=== PATIENT | female | born 1970 | race Caucasian/White ===

== ENCOUNTER 2017-12-13 09:25 | Emergency (ER) | payer MEDICARE ==
[2017-12-13 09:37] VITALS: RESP 18
--- NOTE | 2017-12-13 10:08 | XR ---
EXAMINATION TYPE: XR lumbar spine 2 or 3V DATE OF EXAM: 12/13/2017 CLINICAL HISTORY: Back pain. History of lumbar fusion. TECHNIQUE: Frontal and lateral images of the lumbar spine are obtained. COMPARISON: None FINDINGS: There is straightening of the usual lumbar lordosis, unchanged from 2015. Surgical fusion o f the L3-L4 vertebral bodies is redemonstrated. No new malalignment or vertebral body height loss. Th ere are 5 lumbar type vertebral bodies identified. The oblique images appear within normal limits. T he overlying soft tissue appears unremarkable. IMPRESSION: No acute fracture or malalignment is seen in the lumbar spine. Postsurgical changes and straightening of usual lumbar lordosis unchanged from 2015.
[2017-12-13] MEDS ORDERED: KETOROLAC 60 MG/2 ML VIAL IM STA (10:15)
[2017-12-13] MEDS ORDERED: ORPHENADRINE 30 MG/ML 2 ML VIAL IM STA (10:15)
--- NOTE | 2017-12-13 10:18 | ED ---
General Adult HPI - General Chief complaint: Back Pain/Injury Stated complaint: back pain Time Seen by Provider: 12/13/17 09:45 Source: patient, RN notes reviewed Mode of arrival: ambulatory Limitations: no limitations - History of Present Illness Initial comments: Patient is a 47-year-old female significant past medical history for chronic back pain, presented to the emergency room today with chief complaint of increased pain to the lower back radiating down both right and left legs. Patient does admit that she feels it could undergo approximately the knees bilaterally. Patient denies any bowel or bladder incontinence retention. Patient states that she's been helping her daughter cleaning her house. She admits that a few days ago she was lifting and twisted and felt a little pain in her lower back. She states was able to continue to work. Patient does admit that she did a similar movement beginning yesterday. She states she was again able to work today but is been having increased pain starting last night and into this morning. Patient states she is not on any pain medication. She states she smokes marijuana for the pain. Patient denies any other complaints. Patient denies any recent fever, chills, shortness of breath, chest pain, abdominal pain, nausea or vomiting, dysuria or hematuria, constipation or diarrhea, headaches or visual changes, or any other complaints. - Related Data Home Medications Medication Instructions Recorded Confirmed RX: Tiotropium 18 Mcg/Puff 1 puff INHALATION RT-DAILY 04/23/14 12/13/17 [Spiriva] Albuterol Nebulized [Ventolin 2.5 mg INHALATION Q6H PRN 12/13/17 12/13/17 Nebulized] Cetirizine HCl [Zyrtec] 10 mg PO DAILY 12/13/17 12/13/17 Ergocalciferol [Vitamin D2] 50,000 unit PO MO 12/13/17 12/13/17 Fluticasone/Salmeterol [Advair 1 inhalation PO RT-BID 12/13/17 12/13/17 500-50 Diskus] Gabapentin [Neurontin] 300 mg PO TID 12/13/17 12/13/17 Levothyroxine Sodium [Synthroid] 75 mcg PO DAILY 12/13/17 12/13/17 Multivitamins, Thera [Multivitamin 1 tab PO DAILY 12/13/17 12/13/17 (formulary)] [place]-3 Fatty Acids/Fish Oil [Fish 2 cap PO BID 12/13/17 12/13/17 Oil 1,000 mg Softgel] RX: Aspirin 81 mg PO DAILY 12/13/17 12/13/17 RX: Biotin 5 mg PO DAILY 12/13/17 12/13/17 RX: Pantoprazole Sodium 40 mg PO DAILY 12/13/17 12/13/17 RX: Vitamin E 100 unit PO DAILY 12/13/17 12/13/17 RX: traZODone HCL 150 mg PO HS 12/13/17 12/13/17 Venlafaxine HCl [Effexor] 75 mg PO BID 12/13/17 12/13/17 Previous Rx's Medication Instructions Recorded Cyclobenzaprine [Flexeril] 10 mg PO TID #20 tab 12/13/17 Allergies Allergy/AdvReac Type Severity Reaction Status Date / Time adhesive Allergy Unknown Verified 12/13/17 10:35 Corticosteroids Allergy Unknown Verified 12/13/17 10:35 (Glucocorticoids) fluoxetine HCl [From Prozac] Allergy Unknown Verified 12/13/17 10:35 latex Allergy Rash/Hives Verified 12/13/17 10:35 olanzapine [From Zyprexa] Allergy Unknown Verified 12/13/17 10:35 prednisone Allergy Unknown Verified 12/13/17 10:35 venom-honey bee Allergy Anaphylaxis Verified 12/13/17 10:35 [bee venom (honey bee)] Review of Systems ROS Statement: Those systems with pertinent positive or pertinent negative responses have been documented in the HPI. ROS Other: All systems not noted in ROS Statement are negative. Past Medical History Past Medical History: COPD, GERD/Reflux, Seizure Disorder, Thyroid Disorder Additional Past Medical History / Comment(s): Chronic back pain, lung nodule followed by Dr. MICHELLE Gilliam, brain lesions being worked up for possible MS, chronic constipation, hypothyroidism in the past and off medications History of Any Multi-Drug Resistant Organisms: MRSA Date of last positivie culture/infection: 2011 MDRO Source:: urine Past Surgical History: Back Surgery, Section, Hysterectomy, Orthopedic Surgery, Tubal Ligation Additional Past Surgical History / Comment(s): knee, wrist, sarcodisis, vitamin d deficiency neck surg Past Psychological History: Anxiety Smoking Status: Current every day smoker Past Alcohol Use History: None Reported, Rare Past Drug Use History: Marijuana - Past Family History Father Family Medical History: No Reported History Additional Family Medical History / Comment(s): Patient states her father in his 20s as he was murdered. Mother Additional Family Medical History / Comment(s): Mother is alive at age 63 and suffers from Alzheimer's dementia and other "multiple problems." Sister(s) Additional Family Medical History / Comment(s): Patient had 2 sisters. One sister shot and killed herself. Patient has 3 brothers with no major medical problems. General Exam - General Exam Comments Initial Comments: General: The patient is awake and alert, in no distress, and does not appear acutely ill. Eye: Pupils are equal, round and reactive to light, extra-ocular movements are intact. No nystagmus. There is normal conjunctiva bilaterally. No signs of icterus. Ears, nose, mouth and throat: There are moist mucous membranes and no oral lesions. Neck: The neck is supple, there is no tenderness or JVD. Cardiovascular: There is a regular rate and rhythm. No murmur, rub or gallop is appreciated. Respiratory: Lungs are clear to auscultation, respirations are non-labored, breath sounds are equal. No wheezes, stridor, rales, or rhonchi. Gastrointestinal: Soft, non-distended, non-tender abdomen without masses or organomegaly noted. There is no rebound or guarding present. No CVA tenderness. Musculoskeletal: Normal ROM. Tender to palpation lower lumbar. No step-off or deformity. Strength 5/5. Sensation intact. Pulses equal bilaterally 2+. Neurological: A&O x 3. CN II-XII intact, There are no obvious motor or sensory deficits. Coordination appears grossly intact. Speech is normal. Skin: Skin is warm and dry and no rashes or lesions are noted. Psychiatric: Cooperative, appropriate mood & affect, normal judgment. : [employer] Reyes present for exam. Normal rectal tone. Limitations: no limitations Course Vital Signs 12/13/17 09:33 Temperature 97.4 F L Pulse Rate 100 Respiratory 18 Rate Blood Pressure 106/68 O2 Sat by Pulse 99 Oximetry Medical Decision Making - Medical Decision Making X-rays reviewed and show no acute abnormality. Results were discussed with the patient. Patient requesting pain medication was given Toradol and Norflex begin with. She states no relief. She is actively moving around the room was up walking. Patient does have a normal rectal tone. Patient is advised follow- up the family doctor over the next 2 days for further evaluation and need for MRI was discussed. Patient will be discharged home. Given a shot of morphine prior to discharge. advised continued anti-inflammatories. Disposition Clinical Impression: Acute exacerbation of chronic low back pain Disposition: HOME SELF-CARE Condition: Good Instructions: Acute Low Back Pain (ED) Additional Instructions: Please use medication as discussed. Please follow-up with family doctor in the next 2 days. Please return to emergency room if the symptoms increase or worsen or for any other concerns. Prescriptions: Cyclobenzaprine [Flexeril] 10 mg PO TID #20 tab Is patient prescribed a controlled substance at d/c from ED?: No Referrals: Frank Arriaza DO [Primary Care Provider] - 1-2 days Time of Disposition: 11:39
[2017-12-13] MEDS ORDERED: MORPHINE SULFATE 2 MG/ML SYRINGE IM STA (11:30)
[2017-12-13 11:55] VITALS: BP 112/68; PULSE 97; TEMP 97.6
== END 2017-12-13 11:55 | disposition home or self-care (01) ==
LOC: EC 09:25
DX: G89.29 Other chronic pain (principal); M54.5 Low back pain; G40.909 Epilepsy, unspecified, not intractable, without status epilepticus; E03.9 Hypothyroidism, unspecified; J44.9 Chronic obstructive pulmonary disease, unspecified; E55.9 Vitamin D deficiency, unspecified; F41.9 Anxiety disorder, unspecified; F17.200 Nicotine dependence, unspecified, uncomplicated; Z86.14 Personal history of Methicillin resistant Staphylococcus aureus infection; Z98.890 Other specified postprocedural states; Z79.51 Long term (current) use of inhaled steroids; Z79.82 Long term (current) use of aspirin; Z79.899 Other long term (current) drug therapy; Z91.048 Other nonmedicinal substance allergy status; Z88.8 Allergy status to other drugs, medicaments and biological substances; Z91.040 Latex allergy status; Z91.030 Bee allergy status; X50.1XXA Overexertion from prolonged static or awkward postures, initial encounter
CPT/HCPCS: 72100; 99283; 96372 ×3; J2360; J1885; J2270

== ENCOUNTER 2017-12-30 22:58 | Emergency (ER) | payer MEDICARE ==
[2017-12-30 23:06] VITALS: TEMP 98.3
[2017-12-30] MEDS ORDERED: KETOROLAC 30 MG/ML 1 ML VIAL IM STA (23:47)
[2017-12-30] MEDS ORDERED: MORPHINE SULFATE 2 MG/ML SYRINGE IM STA (23:54)
--- NOTE | 2017-12-31 00:13 | XR ---
EXAMINATION TYPE: XR femur LT DATE OF EXAM: 12/31/2017 COMPARISON: NONE HISTORY: Pain TECHNIQUE: 4 views FINDINGS: I see no fracture nor dislocation. Hip joint and knee joint appear intact. IMPRESSION: No acute abnormality of the left femur
--- NOTE | 2017-12-31 00:14 | XR ---
EXAMINATION TYPE: XR foot complete LT DATE OF EXAM: 12/31/2017 COMPARISON: NONE HISTORY: Foot pain TECHNIQUE: 3 views FINDINGS: Metatarsals are intact. I see no fracture nor dislocation. Joint spaces are fairly normal. IMPRESSION: Negative left foot exam.
--- NOTE | 2017-12-31 00:56 | ED ---
Fall HPI - General Chief Complaint: Fall Stated Complaint: Knee and ankle injury Time Seen by Provider: 12/30/17 23:12 Source: patient Mode of arrival: ambulatory - History of Present Illness Initial Comments: This patient is a 47-year-old woman who stated that she was walking on stairs, missed a step and fell. She states she landed on the left leg and ankle area she indicates pain to the foot and femur area. Patient denies hitting her head or neck. No loss of consciousness. No chest pain or dyspnea MD Complaint: fall -: minutes(s) Fall From: down stairs (#) When Fall Occurred: just prior to arrival Place Fall Occurred: home Loss of Consciousness: none Prolonged Down Time?: no Symptoms Prior to Fall: none Location - Extremities: Left: Leg, Foot Severity: moderate Quality: aching Context: tripped/slipped - Related Data Home Medications Medication Instructions Recorded Confirmed Tiotropium 18 Mcg/Puff [Spiriva] 1 puff INHALATION RT-DAILY 04/23/14 12/30/17 Albuterol Nebulized [Ventolin 2.5 mg INHALATION Q6H PRN 12/13/17 12/30/17 Nebulized] Aspirin 81 mg PO DAILY 12/13/17 12/30/17 Biotin 5 mg PO DAILY 12/13/17 12/30/17 Cetirizine HCl [Zyrtec] 10 mg PO DAILY 12/13/17 12/30/17 Ergocalciferol [Vitamin D2] 50,000 unit PO MO 12/13/17 12/30/17 Fluticasone/Salmeterol [Advair 1 inhalation PO RT-BID 12/13/17 12/30/17 500-50 Diskus] Gabapentin [Neurontin] 300 mg PO TID 12/13/17 12/30/17 Levothyroxine Sodium [Synthroid] 75 mcg PO DAILY 12/13/17 12/30/17 Multivitamins, Thera [Multivitamin 1 tab PO DAILY 12/13/17 12/30/17 (formulary)] [place]-3 Fatty Acids/Fish Oil [Fish 2 cap PO BID 12/13/17 12/30/17 Oil 1,000 mg Softgel] Pantoprazole Sodium 40 mg PO DAILY 12/13/17 12/30/17 Venlafaxine HCl [Effexor] 75 mg PO BID 12/13/17 12/30/17 Vitamin E 100 unit PO DAILY 12/13/17 12/30/17 traZODone HCL 150 mg PO HS 12/13/17 12/30/17 Previous Rx's Medication Instructions Recorded Cyclobenzaprine [Flexeril] 10 mg PO TID #20 tab 12/13/17 Allergies Allergy/AdvReac Type Severity Reaction Status Date / Time adhesive Allergy Unknown Verified 12/30/17 23:13 Corticosteroids Allergy Unknown Verified 12/30/17 23:13 (Glucocorticoids) fluoxetine HCl [From Prozac] Allergy Unknown Verified 12/30/17 23:13 latex Allergy Rash/Hives Verified 12/30/17 23:13 olanzapine [From Zyprexa] Allergy Unknown Verified 12/30/17 23:13 prednisone Allergy Unknown Verified 12/30/17 23:13 venom-honey bee Allergy Anaphylaxis Verified 12/30/17 23:13 [bee venom (honey bee)] Review of Systems ROS Statement: Those systems with pertinent positive or pertinent negative responses have been documented in the HPI. ROS Other: All systems not noted in ROS Statement are negative. Respiratory: Denies: cough, dyspnea Cardiovascular: Denies: chest pain Gastrointestinal: Denies: abdominal pain Musculoskeletal: Reports: as per HPI, joint swelling, arthralgia. Denies: back pain Neurological: Denies: headache, weakness, numbness, paresthesias Past Medical History Past Medical History: COPD, GERD/Reflux, Seizure Disorder, Thyroid Disorder Additional Past Medical History / Comment(s): Chronic back pain, lung nodule followed by Dr. MICHELLE Gilliam, brain lesions being worked up for possible MS, chronic constipation, hypothyroidism in the past and off medications History of Any Multi-Drug Resistant Organisms: MRSA Date of last positivie culture/infection: 2011 MDRO Source:: urine Past Surgical History: Back Surgery, Section, Hysterectomy, Orthopedic Surgery, Tubal Ligation Additional Past Surgical History / Comment(s): knee, wrist, sarcodisis, vitamin d deficiency neck surg Past Psychological History: Anxiety Smoking Status: Current every day smoker Past Alcohol Use History: None Reported, Rare Past Drug Use History: Marijuana - Past Family History Father Family Medical History: No Reported History Additional Family Medical History / Comment(s): Patient states her father in his 20s as he was murdered. Mother Additional Family Medical History / Comment(s): Mother is alive at age 63 and suffers from Alzheimer's dementia and other "multiple problems." Sister(s) Additional Family Medical History / Comment(s): Patient had 2 sisters. One sister shot and killed herself. Patient has 3 brothers with no major medical problems. General Exam Limitations: no limitations General appearance: alert, in no apparent distress Head exam: Present: atraumatic, normocephalic Eye exam: Present: normal appearance. Absent: scleral icterus, conjunctival injection Neck exam: Present: normal inspection, full ROM. Absent: tenderness Respiratory exam: Present: normal lung sounds bilaterally. Absent: respiratory distress, wheezes, rales, rhonchi, stridor, chest wall tenderness Cardiovascular Exam: Present: regular rate, normal rhythm, normal heart sounds. Absent: systolic murmur, diastolic murmur, rubs, gallop GI/Abdominal exam: Present: soft. Absent: tenderness Extremities exam: Present: normal inspection, full ROM, tenderness (Patient has tenderness lateral aspect of the femur and the lateral aspect of the foot. No bony deformity. ), normal capillary refill Back exam: Absent: vertebral tenderness Neurological exam: Present: alert. Absent: motor sensory deficit Skin exam: Present: warm, dry, intact, normal color. Absent: rash Course Vital Signs 12/30/17 12/31/17 23:01 00:53 Temperature 98.3 F Pulse Rate 111 H 73 Respiratory 20 18 Rate Blood Pressure 137/77 114/77 O2 Sat by Pulse 99 100 Oximetry Disposition Clinical Impression: Fall, Contusion of leg, left, multiple sites Disposition: HOME SELF-CARE Condition: Good Instructions: Contusion in Adults (ED) Is patient prescribed a controlled substance at d/c from ED?: No Referrals: Frank Arriaza DO [Primary Care Provider] - 1-2 days
[2017-12-31 00:57] VITALS: BP 114/77; PULSE 73; RESP 18
== END 2017-12-31 01:15 | disposition home or self-care (01) ==
LOC: EC 22:58
DX: S80.12XA Contusion of left lower leg, initial encounter (principal); J44.9 Chronic obstructive pulmonary disease, unspecified; K21.9 Gastro-esophageal reflux disease without esophagitis; G40.909 Epilepsy, unspecified, not intractable, without status epilepticus; F41.9 Anxiety disorder, unspecified; E03.9 Hypothyroidism, unspecified; F17.200 Nicotine dependence, unspecified, uncomplicated; Z86.14 Personal history of Methicillin resistant Staphylococcus aureus infection; Z98.890 Other specified postprocedural states; Z98.51 Tubal ligation status; Z79.51 Long term (current) use of inhaled steroids; Z79.82 Long term (current) use of aspirin; Z79.899 Other long term (current) drug therapy; Z88.8 Allergy status to other drugs, medicaments and biological substances; Z91.030 Bee allergy status; Z91.040 Latex allergy status; Z91.048 Other nonmedicinal substance allergy status; W10.9XXA Fall (on) (from) unspecified stairs and steps, initial encounter; Y92.009 Unspecified place in unspecified non-institutional (private) residence as the place of occurrence of the external cause; Y93.01 Activity, walking, marching and hiking
CPT/HCPCS: 73552; 73630; 99283; 96372; L1830; J2270

== ENCOUNTER 2018-02-22 20:52 | Emergency (ER) | payer MEDICARE ==
[2018-02-22 20:59] VITALS: TEMP 98.4
[2018-02-22] MEDS ORDERED: ACETAMINOPHEN TAB 500 MG TAB PO STA (21:26)
[2018-02-22] MEDS ORDERED: ONDANSETRON 4 MG ODT STARTER PACK 2 TAB BTL PO STA (21:26)
[2018-02-22] MEDS ORDERED: IBUPROFEN 600 MG STARTER PACK 4 TAB BTL PO STA (21:26)
--- NOTE | 2018-02-22 21:33 | XR ---
EXAMINATION TYPE: XR chest 2V DATE OF EXAM: 02/22/2018 COMPARISON: Prior chest x-ray 10/26/2014 HISTORY: Body aches, pain, sore throat TECHNIQUE: Frontal and lateral views of the chest are obtained. FINDINGS: There is no focal air space opacity, pleural effusion, or pneumothorax seen. The cardiac silhouette size is within normal limits. The osseous structures are intact. Postop changes noted to the lumbar spine. Minimal apical pleural thickening. Postop changes noted to the cervical spine. IMPRESSION: No acute cardiopulmonary process.
[2018-02-22 21:45] LABS: Appearance,Urine Clear (Clear); Bilirubin,Urine Negative (Negative); Blood,Urine Negative (Negative); Color,Urine Light Yellow; Glucose,Urine (UA) Negative (Negative); Ketones,Urine Negative (Negative); Leukocyte Esterase,Urine Negative (Negative); Nitrite,Urine Negative (Negative); Protein,Urine Negative (Negative); Specific Gravity,Urine 1.004 (1.001-1.035); Urobilinogen,Urine <2.0 mg/dL (<2.0)
--- NOTE | 2018-02-22 22:04 | ED ---
ENT HPI - General Chief complaint: ENT Stated complaint: Body Aches Time Seen by Provider: 02/22/18 21:08 Source: patient, RN notes reviewed, old records reviewed Mode of arrival: ambulatory Limitations: no limitations - History of Present Illness Initial comments: This patient's a 47-year-old female presents weren't department today with body aches, sore throat, nasal drainage for the past week. She is here with her grandson who has similar complaints. Patient has had no fevers or chills. She reports she's had a mild cough. Nonproductive. She is a smoker. Patient states that she's had no chest pain, shortness of breath. She also reports she feels occasionally nauseated but has had no vomiting. She reports that a poor appetite. - Related Data Home Medications Medication Instructions Recorded Confirmed Tiotropium 18 Mcg/Puff [Spiriva] 1 cap INHALATION RT-DAILY 04/23/14 02/22/18 Albuterol Nebulized [Ventolin 2.5 mg INHALATION RT-QID PRN 12/13/17 02/22/18 Nebulized] Aspirin 81 mg PO DAILY 12/13/17 02/22/18 Biotin 5 mg PO DAILY 12/13/17 02/22/18 Cetirizine HCl [Zyrtec] 10 mg PO DAILY 12/13/17 02/22/18 Ergocalciferol [Vitamin D2] 50,000 unit PO MO 12/13/17 02/22/18 Fluticasone/Salmeterol [Advair 1 puff INHALATION RT-BID 12/13/17 02/22/18 500-50 Diskus] Gabapentin [Neurontin] 300 mg PO TID 12/13/17 02/22/18 Levothyroxine Sodium [Synthroid] 75 mcg PO DAILY 12/13/17 02/22/18 Multivitamins, Thera [Multivitamin 1 tab PO DAILY 12/13/17 02/22/18 (formulary)] [place]-3 Fatty Acids/Fish Oil [Fish 2 cap PO BID 12/13/17 02/22/18 Oil 1,000 mg Softgel] Pantoprazole Sodium 40 mg PO DAILY 12/13/17 02/22/18 Venlafaxine HCl [Effexor] 75 mg PO BID 12/13/17 02/22/18 Vitamin E 100 unit PO DAILY 12/13/17 02/22/18 traZODone HCL 150 mg PO HS 12/13/17 02/22/18 Loratadine [Claritin] 10 mg PO DAILY 01/10/18 02/22/18 Previous Rx's Medication Instructions Recorded Cyclobenzaprine [Flexeril] 10 mg PO TID #20 tab 12/13/17 Acetaminophen [Tylenol] 500 mg PO Q4-6H PRN #20 tab 02/22/18 Fluticasone Nasal [place] [Flonase 1 spray EA NOSTRIL DAILY #1 bottle 02/22/18 Nasal [place]] Ibuprofen 600 mg PO TID #20 tablet 02/22/18 Allergies Allergy/AdvReac Type Severity Reaction Status Date / Time adhesive Allergy Unknown Verified 02/22/18 20:59 Corticosteroids Allergy Unknown Verified 02/22/18 20:59 (Glucocorticoids) fluoxetine HCl [From Prozac] Allergy Unknown Verified 02/22/18 20:59 latex Allergy Rash/Hives Verified 02/22/18 20:59 olanzapine [From Zyprexa] Allergy Unknown Verified 02/22/18 20:59 prednisone Allergy Unknown Verified 02/22/18 20:59 venom-honey bee Allergy Anaphylaxis Verified 02/22/18 20:59 [bee venom (honey bee)] Review of Systems ROS Statement: Those systems with pertinent positive or pertinent negative responses have been documented in the HPI. ROS Other: All systems not noted in ROS Statement are negative. Past Medical History Past Medical History: COPD, GERD/Reflux, Seizure Disorder, Thyroid Disorder Additional Past Medical History / Comment(s): Chronic back pain, lung nodule followed by Dr. MICHELLE Gilliam, brain lesions being worked up for possible MS, chronic constipation, hypothyroidism in the past and off medications History of Any Multi-Drug Resistant Organisms: MRSA Date of last positivie culture/infection: 2011 MDRO Source:: urine Past Surgical History: Back Surgery, Section, Hysterectomy, Orthopedic Surgery, Tubal Ligation Additional Past Surgical History / Comment(s): knee, wrist, sarcodisis, vitamin d deficiency neck surg Past Psychological History: Anxiety Smoking Status: Current every day smoker Past Alcohol Use History: None Reported, Rare Past Drug Use History: Marijuana - Past Family History Father Family Medical History: No Reported History Additional Family Medical History / Comment(s): Patient states her father in his 20s as he was murdered. Mother Additional Family Medical History / Comment(s): Mother is alive at age 63 and suffers from Alzheimer's dementia and other "multiple problems." Sister(s) Additional Family Medical History / Comment(s): Patient had 2 sisters. One sister shot and killed herself. Patient has 3 brothers with no major medical problems. General Exam - General Exam Comments Initial Comments: Is a 47-year-old female. Alert and oriented. No significant distress. Limitations: no limitations Head exam: Present: atraumatic, normocephalic, normal inspection Eye exam: Present: normal appearance, PERRL, EOMI. Absent: scleral icterus, conjunctival injection, periorbital swelling ENT exam: Present: normal exam, mucous membranes moist, TM's normal bilaterally , other (Erythematous nasal turbinates.). Absent: normal oropharynx ( Erythematous or clicks. Evidence of postnasal drainage.) Neck exam: Present: normal inspection. Absent: tenderness, meningismus, lymphadenopathy Respiratory exam: Present: normal lung sounds bilaterally. Absent: respiratory distress, wheezes, rales, rhonchi, stridor Cardiovascular Exam: Present: regular rate, normal rhythm, normal heart sounds. Absent: systolic murmur, diastolic murmur, rubs, gallop, clicks GI/Abdominal exam: Present: soft, normal bowel sounds. Absent: distended, tenderness, guarding, rebound, rigid Extremities exam: Present: normal inspection, full ROM, normal capillary refill. Absent: tenderness, pedal edema, joint swelling, calf tenderness Back exam: Present: normal inspection Neurological exam: Present: alert, oriented X3, CN II-XII intact Course Vital Signs 02/22/18 02/22/18 20:57 22:15 Temperature 98.4 F 98.4 F Pulse Rate 91 92 Respiratory 18 16 Rate Blood Pressure 107/50 112/78 O2 Sat by Pulse 99 98 Oximetry Medical Decision Making - Medical Decision Making 47-year-old female presents with body aches, upper respiratory congestion, and sore throat. This time rapid strep is negative. Did check a urinalysis for infection which was also clear. No signs of dehydration. She was given Zofran due to nausea. No abdominal tenderness. Lungs are clear auscultation but she does report mild cough. Chest x-ray was completed and negative for any acute process. Vital signs are stable at this time. Discussed most likely viral etiology with body aches and vague upper respiratory symptoms. Patient will be started on Flonase nasal spray for decongestant as well as denies taking Motrin Tylenol for fever and pain. Discussed following up with primary care physician. Discussed that we will call her if is any positive cultures on her for Pharyngeal swab. - Lab Data Lab Results 02/22/18 02/22/18 Range/Units 21:18 21:18 Urine Color Light Yellow Urine Appearance Clear (Clear) Urine pH 6.0 (5.0-8.0) Ur Specific [place] 1.004 (1.001-1.035) Urine Protein Negative (Negative) Urine Glucose (UA) Negative (Negative) Urine Ketones Negative (Negative) Urine Blood Negative (Negative) Urine Nitrite Negative (Negative) Urine Bilirubin Negative (Negative) Urine Urobilinogen <2.0 (<2.0) mg/dL Ur Leukocyte Esterase Negative (Negative) Group A Strep Rapid Negative (Negative) - Radiology Data Radiology results: report reviewed Chest x-rays negative for any acute process. Disposition Clinical Impression: Viral syndrome Disposition: HOME SELF-CARE Condition: Good Instructions: Viral Syndrome (ED) Additional Instructions: Patient is to rest, increase fluid intake. Motrin tunnel for pain. Use the nasal spray for decongestant. Also purchase [id number] decongestant medication. Use cough drops. Return to emergency department if any alarming signs or symptoms occur. Prescriptions: Acetaminophen [Tylenol] 500 mg PO Q4-6H PRN #20 tab PRN Reason: Fever Fluticasone Nasal Arlee [Flonase Nasal Arlee] 1 spray EA NOSTRIL DAILY #1 bottle Ibuprofen 600 mg PO TID #20 tablet Is patient prescribed a controlled substance at d/c from ED?: No Referrals: Sadaf Gan MD [Primary Care Provider] - 1-2 days Time of Disposition: 22:04
[2018-02-22 22:16] VITALS: BP 112/78; PULSE 92; RESP 16
== END 2018-02-22 22:17 | disposition home or self-care (01) ==
LOC: SUPCPDRO 20:52 → EC 20:52
DX: B34.9 Viral infection, unspecified (principal); J44.9 Chronic obstructive pulmonary disease, unspecified; K21.9 Gastro-esophageal reflux disease without esophagitis; G40.909 Epilepsy, unspecified, not intractable, without status epilepticus; E03.9 Hypothyroidism, unspecified; F41.9 Anxiety disorder, unspecified; F17.200 Nicotine dependence, unspecified, uncomplicated; Z86.14 Personal history of Methicillin resistant Staphylococcus aureus infection; Z98.890 Other specified postprocedural states; Z79.51 Long term (current) use of inhaled steroids; Z79.82 Long term (current) use of aspirin; Z79.899 Other long term (current) drug therapy; Z88.8 Allergy status to other drugs, medicaments and biological substances; Z91.030 Bee allergy status; Z91.040 Latex allergy status; Z91.048 Other nonmedicinal substance allergy status
CPT/HCPCS: 81003; 87081; 87430; 71046; 99284; S0119

== ENCOUNTER → 2018-03-26 | Outpatient (CLI) | payer MEDICARE ==
--- NOTE | 2018-03-26 11:27 | US ---
EXAMINATION TYPE: US thyroid st tissue head/neck DATE OF EXAM: 03/26/2018 COMPARISON: NONE CLINICAL HISTORY: R22.1 Localized swelling, mass and lump, neck. Hypothyroidism, hoarse voice GLAND SIZE: Right Lobe: 3.4 x 1.1 x 1.2 cm Overall Parenchyma: homogenous Left Lobe: 2.6 x 1.0 x 1.1 cm Overall Parenchyma: homogeneous Isthmus Thickness: 0.2 cm NODULES RIGHT: # of nodules measured on right: 0 LEFT: # of nodules measured on left: 0 ISTHMUS: # of nodules measured in the isthmus: 0 Bilateral neck scanned, no evidence of lymphadenopathy. IMPRESSION: No evidence of solid or cystic nodule.
== END | disposition home or self-care (01) ==
LOC: RADUSWWP 09:43
PROVIDERS: ATTEND Family Medicine
DX: R22.1 Localized swelling, mass and lump, neck (principal)
CPT/HCPCS: 76536

== ENCOUNTER → 2018-03-27 | Outpatient (CLI) | payer MEDICARE ==
[2018-03-27 09:28] LABS: Albumin 4.2 g/dL (3.5-5.0); Calcium 9.5 mg/dL (8.4-10.2); Potassium 4.5 mmol/L (3.5-5.1); Total Bilirubin 0.4 mg/dL (0.2-1.3); Total Protein 7.1 g/dL (6.3-8.2)
[2018-03-27 09:32] LABS: Basophils % (A) 0 %; Eosinophils # (A) 0.1 k/uL (0-0.7); Eosinophils % (A) 1 %; HGB 12.6 gm/dL (11.4-16.0); Lymphocytes # (A) 1.3 k/uL (1.0-4.8); Lymphocytes % (A) 19 %; MCH 28.9 pg (25.0-35.0); MCHC 31.6 g/dL (31.0-37.0); MCV 91.5 fL (80.0-100.0); Mean Platelet Volume 7.7; Monocytes # (A) 0.4 k/uL (0-1.0); Monocytes % (A) 6 %; Neutrophils % (A) 74 %; Platelet Count 216 k/uL (150-450); RBC 4.37 m/uL (3.80-5.40); RDW 14.4 % (11.5-15.5); WBC 6.8 k/uL (3.8-10.6)
[2018-03-27 16:37] LABS: Vitamin D 25 Hydroxy 23.8 ng/mL (30.0-100.0)
[2018-03-27 16:58] LABS: Folate, Serum 14.5 ng/mL
[2018-03-27 19:14] LABS: Hemoglobin A1C 5.8 % (4.0-6.0)
== END | disposition home or self-care (01) ==
LOC: LABWHC1 07:59
PROVIDERS: ATTEND Nurse Practitioner Family
DX: E03.9 Hypothyroidism, unspecified (principal); K59.01 Slow transit constipation; F43.10 Post-traumatic stress disorder, unspecified; R23.2 Flushing; R22.1 Localized swelling, mass and lump, neck; R30.0 Dysuria
CPT/HCPCS: 36415; 80053; 80061; 82306; 82607; 82746; 83001; 83002; 83036; 84439; 84443; 85025; 87077; 87086; 87186

== ENCOUNTER 2018-03-28 00:22 | Emergency (ER) | payer SELFPAY ==
--- NOTE | 2018-03-28 00:56 | XR ---
EXAMINATION TYPE: XR chest 2V DATE OF EXAM: 03/28/2018 COMPARISON: 02/22/2018 HISTORY: Cough TECHNIQUE: Frontal and lateral views of the chest are obtained. FINDINGS: Heart and mediastinum are normal. Lungs are clear. Diaphragm is normal. Bony thorax appear s normal. IMPRESSION: Normal chest. No change.
[2018-03-28] MEDS ORDERED: IPRATROPIUM-ALBUTEROL 3 ML NEB INHALATION STA (01:16)
--- NOTE | 2018-03-28 01:21 | ED ---
URI HPI - General Source: patient, RN notes reviewed Mode of arrival: ambulatory Limitations: no limitations <Stacia Atkins - Last Filed: 03/28/18 01:11> <Светлана Rosales - Last Filed: 03/28/18 05:20> - General Chief Complaint: Upper Respiratory Infection Stated Complaint: congestion Time Seen by Provider: 03/28/18 00:32 - History of Present Illness Initial Comments: This is a 47-year-old female with history of COPD who presents to the emergency department with chief complaint of cough. Patient states that she has had nasal and sinus congestion for the past one month. She states that one week ago she developed a productive cough. She states that her sputum is clear. She denies any fevers or chills. Denies chest pain. She states that she has felt short of breath at times. She states that she is a current, every day smoker, smoking a half pack of cigarettes per day. Denies abdominal pain, nausea or vomiting, diarrhea or constipation. (Stacia Atkins) - Related Data Home Medications Medication Instructions Recorded Confirmed Tiotropium 18 Mcg/Puff [Spiriva] 1 cap INHALATION RT-DAILY 04/23/14 02/22/18 Albuterol Nebulized [Ventolin 2.5 mg INHALATION RT-QID PRN 12/13/17 02/22/18 Nebulized] Aspirin 81 mg PO DAILY 12/13/17 02/22/18 Biotin 5 mg PO DAILY 12/13/17 02/22/18 Cetirizine HCl [Zyrtec] 10 mg PO DAILY 12/13/17 02/22/18 Ergocalciferol [Vitamin D2] 50,000 unit PO MO 12/13/17 02/22/18 Fluticasone/Salmeterol [Advair 1 puff INHALATION RT-BID 12/13/17 02/22/18 500-50 Diskus] Gabapentin [Neurontin] 300 mg PO TID 12/13/17 02/22/18 Levothyroxine Sodium [Synthroid] 75 mcg PO DAILY 12/13/17 02/22/18 Multivitamins, Thera [Multivitamin 1 tab PO DAILY 12/13/17 02/22/18 (formulary)] [place]-3 Fatty Acids/Fish Oil [Fish 2 cap PO BID 12/13/17 02/22/18 Oil 1,000 mg Softgel] Pantoprazole Sodium 40 mg PO DAILY 12/13/17 02/22/18 Venlafaxine HCl [Effexor] 75 mg PO BID 12/13/17 02/22/18 Vitamin E 100 unit PO DAILY 12/13/17 02/22/18 traZODone HCL 150 mg PO HS 12/13/17 02/22/18 Loratadine [Claritin] 10 mg PO DAILY 01/10/18 02/22/18 Previous Rx's Medication Instructions Recorded Cyclobenzaprine [Flexeril] 10 mg PO TID #20 tab 12/13/17 Acetaminophen [Tylenol] 500 mg PO Q4-6H PRN #20 tab 02/22/18 Fluticasone Nasal [place] [Flonase 1 spray EA NOSTRIL DAILY #1 bottle 02/22/18 Nasal [place]] Ibuprofen 600 mg PO TID #20 tablet 02/22/18 Albuterol Inhaler [Ventolin Hfa 1 - 2 puff INHALATION Q6HR PRN #1 03/28/18 Inhaler] inhaler Azithromycin [Zithromax Z-pack] 0 mg PO DIRECTED #6 tab 03/28/18 Allergies Allergy/AdvReac Type Severity Reaction Status Date / Time adhesive Allergy Unknown Verified 03/28/18 00:29 Corticosteroids Allergy Unknown Verified 03/28/18 00:29 (Glucocorticoids) fluoxetine HCl [From Prozac] Allergy Unknown Verified 03/28/18 00:29 latex Allergy Rash/Hives Verified 03/28/18 00:29 olanzapine [From Zyprexa] Allergy Unknown Verified 03/28/18 00:29 prednisone Allergy Unknown Verified 03/28/18 00:29 venom-honey bee Allergy Anaphylaxis Verified 03/28/18 00:29 [bee venom (honey bee)] Review of Systems ROS Other: All systems not noted in ROS Statement are negative. <Stacia Atkins M - Last Filed: 03/28/18 01:11> ROS Other: All systems not noted in ROS Statement are negative. <Светлана Rosales - Last Filed: 03/28/18 05:20> ROS Statement: Those systems with pertinent positive or pertinent negative responses have been documented in the HPI. Past Medical History Past Medical History: COPD, GERD/Reflux, Seizure Disorder, Thyroid Disorder Additional Past Medical History / Comment(s): Chronic back pain, lung nodule followed by Dr. MICHELLE Gilliam, brain lesions being worked up for possible MS, chronic constipation, hypothyroidism in the past and off medications History of Any Multi-Drug Resistant Organisms: MRSA Date of last positivie culture/infection: 2011 MDRO Source:: urine Past Surgical History: Back Surgery, Section, Hysterectomy, Orthopedic Surgery, Tubal Ligation Additional Past Surgical History / Comment(s): knee, wrist, sarcodisis, vitamin d deficiency neck surg Past Psychological History: Anxiety, PTSD Smoking Status: Current every day smoker Past Alcohol Use History: Rare Past Drug Use History: Marijuana - Past Family History Father Family Medical History: No Reported History Additional Family Medical History / Comment(s): Patient states her father in his 20s as he was murdered. Mother Additional Family Medical History / Comment(s): Mother is alive at age 63 and suffers from Alzheimer's dementia and other "multiple problems." Sister(s) Additional Family Medical History / Comment(s): Patient had 2 sisters. One sister shot and killed herself. Patient has 3 brothers with no major medical problems. <Stacia Atkins M - Last Filed: 03/28/18 01:11> General Exam Limitations: no limitations <Stacia Atkins M - Last Filed: 03/28/18 01:11> <Светлана Rosales - Last Filed: 03/28/18 05:20> - General Exam Comments Initial Comments: General: Awake and alert, well-developed; in no apparent distress. Patient does sound congested while speaking. HEENT: Head atraumatic, normocephalic. Pupils are equal, round and reactive to light. Extraocular movements intact. Oropharynx moist without erythema or exudate. No dentition throughout. Bilateral TMs are pearly with clear effusion. No tenderness on palpation of maxillary sinuses. Neck: Supple. Normal ROM. Cardiovascular: Regular rate and rhythm. No murmurs, rubs or gallops. Chest symmetrical. Respiratory: Lungs clear to auscultation bilaterally. No wheezes, rales or rhonchi. Normal respiratory effort with no use of accessory muscles. Musculoskeletal: Normal ROM, no tenderness bilateral upper and lower extremities. Skin: [place], warm and dry without rashes or lesions. Neurological: Alert and oriented x3. CN II-XII grossly intact. Speech is fluent and answers are appropriate. No focal neuro deficits. Psychiatric: Normal mood and affect. No overt signs of depression or anxiety noted. (Stacia Atkins) Vital Signs 03/28/18 03/28/18 03/28/18 00:25 00:44 01:25 Temperature 97.4 F L Pulse Rate 99 88 Respiratory 20 18 Rate Blood Pressure 111/70 O2 Sat by Pulse 99 Oximetry 03/28/18 03/28/18 01:30 01:34 Temperature 97 F L Pulse Rate 80 84 Respiratory 20 Rate Blood Pressure 116/69 O2 Sat by Pulse 96 Oximetry Medical Decision Making - Radiology Data Radiology results: report reviewed, image reviewed <Stacia Aktins - Last Filed: 03/28/18 01:11> <Светлана Rosales - Last Filed: 03/28/18 05:20> - Medical Decision Making This is a 47-year-old female who presents to the emergency department with chief complaint of cough. Patient does have a history of COPD. She reports increase in cough and sputum production over the past one week. She states that she is a current, every day smoker, smoking a half pack per day. Lungs are clear to auscultation bilaterally. Chest x-ray reveals no acute abnormalities. Patient given a DuoNeb treatment in the emergency department. She states that she is unable to take steroids due to severe panic attacks. She will be started on azithromycin and given a prescription for an albuterol inhaler. Patient's vital signs are stable and she is 99% on room air. Denies chest pain or fevers. She will be discharged home at this time. She is in agreement with plan and voices understanding. All questions were answered. (Stacia Atkins) I was available for consultation in the emergency department. The history and physical exam were done by the midlevel provider. I was consulted for this patient's care. I reviewed the case with the midlevel provider and based on their presentation of the patient, I agree with the assessment, medical decision making and plan of care as documented. (Светлана Rosales) - Radiology Data Chest x-ray impression: Normal chest. No change. (Stacia Atkins) Disposition Is patient prescribed a controlled substance at d/c from ED?: No Time of Disposition: 01:22 <MillyStacia M - Last Filed: 03/28/18 01:11> <Светлана Rosales P - Last Filed: 03/28/18 05:20> Clinical Impression: COPD exacerbation Disposition: HOME SELF-CARE Condition: Good Instructions: COPD (Chronic Obstructive Pulmonary Disease) (ED), Chronic Lung Disease and Infection Prevention (ED) Additional Instructions: Please take medications as prescribed. Please follow up with primary care provider within 1-2 days. Return to emergency department if symptoms should worsen or any concerns arise. Prescriptions: Albuterol Inhaler [Ventolin Hfa Inhaler] 1 - 2 puff INHALATION Q6HR PRN #1 inhaler PRN Reason: Shortness Of Breath Azithromycin [Zithromax Z-pack] 0 mg PO DIRECTED #6 tab Referrals: Sadaf Gan MD [Primary Care Provider] - 1-2 days
[2018-03-28 01:31] VITALS: BP 116/69; RESP 20; TEMP 97
[2018-03-28 01:34] VITALS: PULSE 84
== END 2018-03-28 01:46 | disposition home or self-care (01) ==
LOC: EC 00:22
DX: J44.1 Chronic obstructive pulmonary disease with (acute) exacerbation (principal); K21.9 Gastro-esophageal reflux disease without esophagitis; G40.909 Epilepsy, unspecified, not intractable, without status epilepticus; E03.9 Hypothyroidism, unspecified; F17.200 Nicotine dependence, unspecified, uncomplicated; F41.9 Anxiety disorder, unspecified; F43.10 Post-traumatic stress disorder, unspecified; F17.210 Nicotine dependence, cigarettes, uncomplicated; Z79.51 Long term (current) use of inhaled steroids; Z79.82 Long term (current) use of aspirin; Z79.899 Other long term (current) drug therapy; Z91.040 Latex allergy status; Z91.048 Other nonmedicinal substance allergy status; Z91.030 Bee allergy status; Z88.8 Allergy status to other drugs, medicaments and biological substances
CPT/HCPCS: 71046; 94640; 99283

== ENCOUNTER 2018-04-06 09:02 | Emergency (ER) | payer MEDICARE ==
--- NOTE | 2018-04-06 09:29 | ED ---
General Adult HPI - General Chief complaint: Fall Stated complaint: Fell in shower/neck shoulder pain Time Seen by Provider: 04/06/18 09:13 Source: patient, RN notes reviewed Mode of arrival: ambulatory Limitations: no limitations - History of Present Illness Initial comments: Patient's 48-year-old female presented to the emergency room today with chief complaint of a fall that occurred this morning when she was in the shower. She states she slipped falling down hitting the left shoulder and neck area. States she did hit her head. There was no loss consciousness. Patient does admit to headache, neck pain, left shoulder pain and upper back pain. She states worse with movements. She denies any other complaints or symptoms. Patient denies any recent fever, chills, shortness of breath, chest pain, abdominal pain, nausea or vomiting, numbness or tingling, visual changes, or any other complaints. - Related Data Home Medications Medication Instructions Recorded Confirmed Tiotropium 18 Mcg/Puff [Spiriva] 1 cap INHALATION RT-DAILY 04/23/14 02/22/18 Albuterol Nebulized [Ventolin 2.5 mg INHALATION RT-QID PRN 12/13/17 02/22/18 Nebulized] Aspirin 81 mg PO DAILY 12/13/17 02/22/18 Biotin 5 mg PO DAILY 12/13/17 02/22/18 Cetirizine HCl [Zyrtec] 10 mg PO DAILY 12/13/17 02/22/18 Ergocalciferol [Vitamin D2] 50,000 unit PO MO 12/13/17 02/22/18 Fluticasone/Salmeterol [Advair 1 puff INHALATION RT-BID 12/13/17 02/22/18 500-50 Diskus] Gabapentin [Neurontin] 300 mg PO TID 12/13/17 02/22/18 Levothyroxine Sodium [Synthroid] 75 mcg PO DAILY 12/13/17 02/22/18 Multivitamins, Thera [Multivitamin 1 tab PO DAILY 12/13/17 02/22/18 (formulary)] [place]-3 Fatty Acids/Fish Oil [Fish 2 cap PO BID 12/13/17 02/22/18 Oil 1,000 mg Softgel] Pantoprazole Sodium 40 mg PO DAILY 12/13/17 02/22/18 Venlafaxine HCl [Effexor] 75 mg PO BID 12/13/17 02/22/18 Vitamin E 100 unit PO DAILY 12/13/17 02/22/18 traZODone HCL 150 mg PO HS 12/13/17 02/22/18 Loratadine [Claritin] 10 mg PO DAILY 01/10/18 02/22/18 Previous Rx's Medication Instructions Recorded Cyclobenzaprine [Flexeril] 10 mg PO TID #20 tab 12/13/17 Acetaminophen [Tylenol] 500 mg PO Q4-6H PRN #20 tab 02/22/18 Fluticasone Nasal [place] [Flonase 1 spray EA NOSTRIL DAILY #1 bottle 02/22/18 Nasal [place]] Ibuprofen 600 mg PO TID #20 tablet 02/22/18 Albuterol Inhaler [Ventolin Hfa 1 - 2 puff INHALATION Q6HR PRN #1 03/28/18 Inhaler] inhaler Azithromycin [Zithromax Z-pack] 0 mg PO DIRECTED #6 tab 03/28/18 Allergies Allergy/AdvReac Type Severity Reaction Status Date / Time adhesive Allergy Unknown Verified 03/28/18 00:29 Corticosteroids Allergy Unknown Verified 03/28/18 00:29 (Glucocorticoids) fluoxetine HCl [From Prozac] Allergy Unknown Verified 03/28/18 00:29 latex Allergy Rash/Hives Verified 03/28/18 00:29 olanzapine [From Zyprexa] Allergy Unknown Verified 03/28/18 00:29 prednisone Allergy Unknown Verified 03/28/18 00:29 venlafaxine Allergy Chest Pain Verified 04/06/18 09:09 venom-honey bee Allergy Anaphylaxis Verified 03/28/18 00:29 [bee venom (honey bee)] Review of Systems ROS Statement: Those systems with pertinent positive or pertinent negative responses have been documented in the HPI. ROS Other: All systems not noted in ROS Statement are negative. Past Medical History Past Medical History: COPD, GERD/Reflux, Seizure Disorder, Thyroid Disorder Additional Past Medical History / Comment(s): Chronic back pain, lung nodule followed by Dr. MICHELLE Gilliam, brain lesions being worked up for possible MS, chronic constipation, hypothyroidism in the past and off medications History of Any Multi-Drug Resistant Organisms: MRSA Date of last positivie culture/infection: 2011 MDRO Source:: urine Past Surgical History: Back Surgery, Section, Hysterectomy, Orthopedic Surgery, Tubal Ligation Additional Past Surgical History / Comment(s): knee, wrist, sarcodisis, vitamin d deficiency neck surg Past Psychological History: Anxiety, PTSD Smoking Status: Current every day smoker Past Alcohol Use History: Rare Past Drug Use History: Marijuana - Past Family History Father Family Medical History: No Reported History Additional Family Medical History / Comment(s): Patient states her father in his 20s as he was murdered. Mother Additional Family Medical History / Comment(s): Mother is alive at age 63 and suffers from Alzheimer's dementia and other "multiple problems." Sister(s) Additional Family Medical History / Comment(s): Patient had 2 sisters. One sister shot and killed herself. Patient has 3 brothers with no major medical problems. General Exam - General Exam Comments Initial Comments: General: The patient is awake and alert, in no distress, and does not appear acutely ill. Eye: Pupils are equal, round and reactive to light. Extra-ocular movements are intact. No nystagmus. There is normal conjunctiva bilaterally. No signs of icterus. Ears, nose, mouth and throat: There are moist mucous membranes and no oral lesions. Neck: The neck is supple, there is no tenderness or JVD. Cardiovascular: There is a regular rate and rhythm. No murmur, rub or gallop is appreciated. Respiratory: Lungs are clear to auscultation, respirations are non-labored, breath sounds are equal. No wheezes, stridor, rales, or rhonchi. Musculoskeletal: Normal appearance of cervical, thoracic or lumbar spine. No step-off deformity. Patient does have no tenderness midline cervical spine. Diffuse tenderness in the upper thoracic from T2 to T6. Patient is tender over the posterior and anterior aspects of the left shoulder. No tenderness down the left elbow or wrist. Radial pulses are 2+ bilaterally. Patient shows good range of motion. No bone tenderness to lower extremities or lumbar spine. Sensation intact. Strength 5/5. Pulses equal bilaterally 2+. Neurological: A&O x 3. CN II-XII intact, There are no obvious motor or sensory deficits. Coordination appears grossly intact. Speech is normal. Skin: Skin is warm and dry and no rashes or lesions are noted. Psychiatric: Cooperative, appropriate mood & affect, normal judgment. Limitations: no limitations Course Vital Signs 04/06/18 09:03 Temperature 97.9 F Pulse Rate 94 Respiratory 20 Rate Blood Pressure 107/69 O2 Sat by Pulse 98 Oximetry Medical Decision Making - Medical Decision Making Patient's CT of the head and neck are negative for any acute abnormality. Results were discussed with the patient. Her x-rays been reviewed and are negative for any fractures or dislocations. Results were discussed with the patient. Patient will be discharged home advise using anti-inflammatories for pain followed up with family doctor over the next 2 days return to emergency room if symptoms increase or worsen or for any other concerns. Disposition Clinical Impression: Fall, Head injury, Shoulder injury Disposition: HOME SELF-CARE Condition: Good Instructions: Muscle Strain (ED) Additional Instructions: Please use medication as discussed. Please follow-up with family doctor in the next 2 days of symptoms have not improved. Please return to emergency room if the symptoms increase or worsen or for any other concerns. Is patient prescribed a controlled substance at d/c from ED?: No Referrals: Sadaf Gan MD [Primary Care Provider] - 1-2 days Time of Disposition: 10:37
--- NOTE | 2018-04-06 09:48 | XR ---
EXAMINATION TYPE: XR thoracic spine complete , 3 VIEWS DATE OF EXAM ORDERED: 04/06/2018 HISTORY: pain. COMPARISON: None. FINDINGS: There is a gentle dextroscoliosis. Vertebral body height and alignment are maintained. No fractures are seen. Paravertebral soft tissues are normal. The pedicles are intact. IMPRESSION: NO ACUTE OSSEOUS LESION.
--- NOTE | 2018-04-06 09:49 | XR ---
EXAMINATION TYPE: XR shoulder complete LT , 3 VIEWS DATE OF EXAM ORDERED: 04/06/2018 HISTORY: Pain. COMPARISON: Previous study dated 11/12/2013. FINDINGS: No fracture, dislocation or other acute osseous lesion is seen. IMPRESSION: NORMAL LEFT SHOULDER.
--- NOTE | 2018-04-06 10:13 | CT ---
EXAMINATION TYPE: CT brain cspine wo con DATE OF EXAM: 04/06/2018 COMPARISON: Previous study dated 08/20/2014 HISTORY: fall CT DLP: 1233.1 mGycm Automated exposure control for dose reduction was used. TECHNIQUE: CT scan of the head and cervical spine are performed without contrast. FINDINGS: BRAIN: Central structures are midline. There is no evidence of hydrocephalus. No acute focal lesion, mass effect or midline shift is seen. I do not see evidence of intracranial blood. There is mucoperiosteal thickening involving the left maxillary sinus. The remainder the paranasal si nuses and mastoids are clear. The bony calvarium is intact. IMPRESSION: 1. NO ACUTE INTRACRANIAL ABNORMALITY. 2. CHRONIC LEFT MAXILLARY SINUS MUCOSAL DISEASE. CERVICAL SPINE: There is apical scarring bilaterally. There is evidence of emphysematous change withi n the lungs. Prevertebral soft tissues are are normal. There is been a previous ACDF at C4-5. Alignment is maintained. Atlantoaxial relationships are normal . There is uncovertebral joint disease at the level of fusion. The facets are unremarkable. No discal protrusion is seen. No fracture is identified. IMPRESSION: 1. NO ACUTE OSSEOUS LESION. 2. POSTSURGICAL AND DEGENERATIVE CHANGE.
[2018-04-06] MEDS ORDERED: MORPHINE SULFATE 4 MG/ML SYRINGE IM STA (10:35)
[2018-04-06 11:08] VITALS: BP 112/54; PULSE 62; RESP 18; TEMP 98.3
== END 2018-04-06 11:08 | disposition home or self-care (01) ==
LOC: EC 09:02
DX: S09.90XA Unspecified injury of head, initial encounter (principal); S49.92XA Unspecified injury of left shoulder and upper arm, initial encounter; M54.2 Cervicalgia; M54.6 Pain in thoracic spine; J44.9 Chronic obstructive pulmonary disease, unspecified; G40.909 Epilepsy, unspecified, not intractable, without status epilepticus; K21.9 Gastro-esophageal reflux disease without esophagitis; E03.9 Hypothyroidism, unspecified; G89.29 Other chronic pain; F41.9 Anxiety disorder, unspecified; F17.200 Nicotine dependence, unspecified, uncomplicated; Z88.8 Allergy status to other drugs, medicaments and biological substances; Z91.030 Bee allergy status; Z91.040 Latex allergy status; Z91.048 Other nonmedicinal substance allergy status; Z79.51 Long term (current) use of inhaled steroids; Z79.82 Long term (current) use of aspirin; Z79.899 Other long term (current) drug therapy; Z86.14 Personal history of Methicillin resistant Staphylococcus aureus infection; Z98.890 Other specified postprocedural states; W18.2XXA Fall in (into) shower or empty bathtub, initial encounter; Y93.E1 Activity, personal bathing and showering; Y92.002 Bathroom of unspecified non-institutional (private) residence as the place of occurrence of the external cause
CPT/HCPCS: 72072; 73030; 72125; 70450; 99284; 96372; J2270

== ENCOUNTER 2018-04-14 20:50 | Emergency (ER) | payer MEDICARE ==
[2018-04-14 20:57] VITALS: BP 145/86; PULSE 93; RESP 18; TEMP 98
[2018-04-14] MEDS ORDERED: KETOROLAC 30 MG/ML 1 ML VIAL IM STA (21:31)
[2018-04-14] MEDS ORDERED: CYCLOBENZAPRINE 10MG STARTER 3 TAB BTL PO STA (21:31)
[2018-04-14] MEDS ORDERED: MORPHINE SULFATE 4 MG/ML SYRINGE IM STA (21:31)
--- NOTE | 2018-04-14 21:33 | ED ---
Upper Extremity HPI - General Chief Complaint: Extremity Injury, Upper Stated Complaint: shoulder pain Time Seen by Provider: 04/14/18 20:58 Source: patient Mode of arrival: ambulatory Limitations: no limitations - History of Present Illness Initial Comments: 48-year-old female patient presents to the emergency department today for evaluation of left shoulder pain. Patient states she has chronic left shoulder pain after several injuries over the last year and a half. Patient states that she was seen and evaluated by her doctor today and they did perform range of motion exam. The patient states it is exacerbated her pain. States that she does not have pain medication at home and is requesting an injection. Patient denies any numbness or tingling to the arm. States it feels like the muscle is spasming in the left posterior shoulder. She denies any new injury to the arm. Patient denies any headache, neck pain, back pain, chest pain, shortness of breath, dizziness, weakness, abdominal pain, nausea, vomiting, or difficulties with bowel movements or urination. - Related Data Home Medications Medication Instructions Recorded Confirmed Tiotropium 18 Mcg/Puff [Spiriva] 1 cap INHALATION RT-DAILY 04/23/14 02/22/18 Albuterol Nebulized [Ventolin 2.5 mg INHALATION RT-QID PRN 12/13/17 02/22/18 Nebulized] Aspirin 81 mg PO DAILY 12/13/17 02/22/18 Biotin 5 mg PO DAILY 12/13/17 02/22/18 Cetirizine HCl [Zyrtec] 10 mg PO DAILY 12/13/17 02/22/18 Ergocalciferol [Vitamin D2] 50,000 unit PO MO 12/13/17 02/22/18 Fluticasone/Salmeterol [Advair 1 puff INHALATION RT-BID 12/13/17 02/22/18 500-50 Diskus] Gabapentin [Neurontin] 300 mg PO TID 12/13/17 02/22/18 Levothyroxine Sodium [Synthroid] 75 mcg PO DAILY 12/13/17 02/22/18 Multivitamins, Thera [Multivitamin 1 tab PO DAILY 12/13/17 02/22/18 (formulary)] [place]-3 Fatty Acids/Fish Oil [Fish 2 cap PO BID 12/13/17 02/22/18 Oil 1,000 mg Softgel] Pantoprazole Sodium 40 mg PO DAILY 12/13/17 02/22/18 Venlafaxine HCl [Effexor] 75 mg PO BID 12/13/17 02/22/18 Vitamin E 100 unit PO DAILY 12/13/17 02/22/18 traZODone HCL 150 mg PO HS 12/13/17 02/22/18 Loratadine [Claritin] 10 mg PO DAILY 01/10/18 02/22/18 Previous Rx's Medication Instructions Recorded Cyclobenzaprine [Flexeril] 10 mg PO TID #20 tab 12/13/17 Acetaminophen [Tylenol] 500 mg PO Q4-6H PRN #20 tab 02/22/18 Fluticasone Nasal [place] [Flonase 1 spray EA NOSTRIL DAILY #1 bottle 02/22/18 Nasal [place]] Ibuprofen 600 mg PO TID #20 tablet 02/22/18 Albuterol Inhaler [Ventolin Hfa 1 - 2 puff INHALATION Q6HR PRN #1 03/28/18 Inhaler] inhaler Azithromycin [Zithromax Z-pack] 0 mg PO DIRECTED #6 tab 03/28/18 Allergies Allergy/AdvReac Type Severity Reaction Status Date / Time adhesive Allergy Unknown Verified 04/14/18 20:57 Corticosteroids Allergy Unknown Verified 04/14/18 20:57 (Glucocorticoids) fluoxetine HCl [From Prozac] Allergy Unknown Verified 04/14/18 20:57 latex Allergy Rash/Hives Verified 04/14/18 20:57 olanzapine [From Zyprexa] Allergy Unknown Verified 04/14/18 20:57 prednisone Allergy Unknown Verified 04/14/18 20:57 venlafaxine Allergy Chest Pain Verified 04/14/18 20:57 venom-honey bee Allergy Anaphylaxis Verified 04/14/18 20:57 [bee venom (honey bee)] Review of Systems ROS Statement: Those systems with pertinent positive or pertinent negative responses have been documented in the HPI. ROS Other: All systems not noted in ROS Statement are negative. Past Medical History Past Medical History: COPD, GERD/Reflux, Seizure Disorder, Thyroid Disorder Additional Past Medical History / Comment(s): Chronic back pain, lung nodule followed by Dr. MICHELLE Gilliam, brain lesions being worked up for possible MS, chronic constipation, hypothyroidism in the past and off medications, spondylosis, menopause, History of Any Multi-Drug Resistant Organisms: MRSA Date of last positivie culture/infection: 2011 MDRO Source:: urine Past Surgical History: Back Surgery, Section, Hysterectomy, Orthopedic Surgery, Tubal Ligation Additional Past Surgical History / Comment(s): knee, wrist, sarcodisis, vitamin d deficiency, neck surg Past Psychological History: Anxiety, PTSD Smoking Status: Current every day smoker Past Alcohol Use History: None Reported Past Drug Use History: Marijuana - Past Family History Father Family Medical History: No Reported History Additional Family Medical History / Comment(s): Patient states her father in his 20s as he was murdered. Mother Additional Family Medical History / Comment(s): Mother is alive at age 63 and suffers from Alzheimer's dementia and other "multiple problems." Sister(s) Additional Family Medical History / Comment(s): Patient had 2 sisters. One sister shot and killed herself. Patient has 3 brothers with no major medical problems. General Exam Limitations: no limitations General appearance: alert, in no apparent distress, other (This is a well- developed, well-nourished adult female patient in no acute distress. Vital signs upon presentation are temperature 98.0F, pulse 93, respirations 18, blood pressure 145/86, pulse ox 100% on room air.) Respiratory exam: Present: normal lung sounds bilaterally. Absent: respiratory distress, wheezes, rales, rhonchi, stridor Cardiovascular Exam: Present: regular rate, normal rhythm, normal heart sounds. Absent: systolic murmur, diastolic murmur, rubs, gallop, clicks Extremities exam: Present: normal inspection, full ROM, tenderness (Tenderness over the left posterior shoulder), normal capillary refill, other (Skin to the left upper extremity is pink, warm, and dry. Cap refills less than 3 seconds. Radial pulses 2+ and equal bilaterally. Patient has good strength in the hand.) . Absent: pedal edema, joint swelling, calf tenderness Back exam: Present: normal inspection, muscle spasm (Left posterior shoulder) Neurological exam: Present: alert, oriented X3, CN II-XII intact Psychiatric exam: Present: normal affect, normal mood Skin exam: Present: warm, dry, intact, normal color. Absent: rash Course Vital Signs 04/14/18 20:52 Temperature 98.0 F Pulse Rate 93 Respiratory 18 Rate Blood Pressure 145/86 O2 Sat by Pulse 100 Oximetry Medical Decision Making - Medical Decision Making 48-year-old female patient presented to the emergency department today complaining of left shoulder pain. Patient did have an exam by her doctor today with a did perform range of motion exam. Patient states this made her pain worse. Physical examination did reveal spasm to the left posterior shoulder. Patient was given pain medication here in the department. She is discharged to follow-up with her primary care physician for recheck in 1-2 days. Return parameters discussed in detail. She verbalizes understanding and agrees with this plan. Disposition Clinical Impression: Chronic left shoulder pain Disposition: HOME SELF-CARE Condition: Good Instructions: Shoulder Pain (ED) Additional Instructions: Apply ice to the shoulder 20 minutes at a time at least 4 times a day. Switch to warm moist heat and 24 hours. Follow-up with your doctor for further evaluation 1-2 days. Return here immediately for any new, worsening, or concerning symptoms. Is patient prescribed a controlled substance at d/c from ED?: No Referrals: Sadaf Gan MD [Primary Care Provider] - 1-2 days Time of Disposition: 21:33
== END 2018-04-14 21:53 | disposition home or self-care (01) ==
LOC: EC 20:50
DX: G89.29 Other chronic pain (principal); M25.512 Pain in left shoulder; J44.9 Chronic obstructive pulmonary disease, unspecified; K21.9 Gastro-esophageal reflux disease without esophagitis; G40.909 Epilepsy, unspecified, not intractable, without status epilepticus; E03.9 Hypothyroidism, unspecified; E55.9 Vitamin D deficiency, unspecified; F41.9 Anxiety disorder, unspecified; F43.10 Post-traumatic stress disorder, unspecified; F17.200 Nicotine dependence, unspecified, uncomplicated; Z86.14 Personal history of Methicillin resistant Staphylococcus aureus infection; Z79.82 Long term (current) use of aspirin; Z79.51 Long term (current) use of inhaled steroids; Z79.899 Other long term (current) drug therapy; Z91.048 Other nonmedicinal substance allergy status; Z88.8 Allergy status to other drugs, medicaments and biological substances; Z91.040 Latex allergy status; Z91.030 Bee allergy status
CPT/HCPCS: 99283; 96372 ×2; J2270; J1885

== ENCOUNTER 2018-04-15 11:17 | Emergency (ER) | payer MEDICARE ==
[2018-04-15] MEDS ORDERED: SODIUM CHLORIDE 0.9% 1,000 ML IV STA ×2 (11:53→12:14)
[2018-04-15 12:42] LABS: Basophils % (A) 1 %; Eosinophils # (A) 0.1 k/uL (0-0.7); Eosinophils % (A) 2 %; HCT 35.5 % (34.0-46.0); HGB 12.2 gm/dL (11.4-16.0); Lymphocytes # (A) 1.6 k/uL (1.0-4.8); Lymphocytes % (A) 34 %; MCH 30.4 pg (25.0-35.0); MCHC 34.4 g/dL (31.0-37.0); MCV 88.4 fL (80.0-100.0); Monocytes # (A) 0.3 k/uL (0-1.0); Monocytes % (A) 6 %; Neutrophils # (A) 2.7 k/uL (1.3-7.7); Neutrophils % (A) 56 %; Platelet Count 218 k/uL (150-450); RBC 4.01 m/uL (3.80-5.40); RDW 14.2 % (11.5-15.5); WBC 4.9 k/uL (3.8-10.6)
[2018-04-15 12:55] LABS: ALT 32 U/L (9-52); AST 16 U/L (14-36); Albumin 3.6 g/dL (3.5-5.0); Alkaline Phosphatase 51 U/L (38-126); Anion Gap 6 mmol/L; Blood Urea Nitrogen 8 mg/dL (7-17); Calcium 9.2 mg/dL (8.4-10.2); Carbon Dioxide 27 mmol/L (22-30); Chloride 108 mmol/L (98-107); Glucose 62 mg/dL (74-99); Magnesium 1.9 mg/dL (1.6-2.3); Phosphorus 3.9 mg/dL (2.5-4.5); Sodium 141 mmol/L (137-145); Total Bilirubin 0.3 mg/dL (0.2-1.3); Total Protein 6.3 g/dL (6.3-8.2)
[2018-04-15 13:07] LABS: Creatine Kinase 151 U/L (30-135)
--- NOTE | 2018-04-15 13:09 | ED ---
General Adult HPI - General Chief complaint: Recheck/Abnormal Lab/Rx Stated complaint: panic attack Time Seen by Provider: 04/15/18 11:46 Source: patient, RN notes reviewed, old records reviewed Mode of arrival: wheelchair Limitations: no limitations - History of Present Illness Initial comments: This is a 48-year-old female the ER for evaluation today. This patient's today for evaluation regarding not feeling well, occasional headaches lightheadedness dizziness pressure in her head. She states symptoms started last night, denies trauma denies fever mild nausea no vomiting. Patient does history of seizures. Does have history of thyroid COPD. No recent travel history no sick contacts , no family members with similar complaints. No recent change in medications, no new medications, no drugs or alcohol. Admits mild shortness of breath left- sided arm tingling right-sided tingling MD Complaint: Not feeling well -: days(s) (1) Location: head, face Radiation: extremity (left) Quality: aching Consistency: constant Improves with: none Worsens with: none Associated Symptoms: confusion, loss of appetite, nausea/vomiting, weakness Treatments Prior to Arrival: none - Related Data Home Medications Medication Instructions Recorded Confirmed Aspirin 81 mg PO DAILY 12/13/17 04/15/18 Biotin 5 mg PO DAILY 12/13/17 04/15/18 Multivitamins, Thera [Multivitamin 1 tab PO DAILY 12/13/17 04/15/18 (formulary)] [place]-3 Fatty Acids/Fish Oil [Fish 2 cap PO BID 12/13/17 04/15/18 Oil 1,000 mg Softgel] Venlafaxine HCl [Effexor] 75 mg PO BID 12/13/17 04/15/18 Vitamin E 100 unit PO DAILY 12/13/17 04/15/18 traZODone HCL 150 mg PO HS 12/13/17 04/15/18 Loratadine [Claritin] 10 mg PO DAILY 01/10/18 04/15/18 Acetaminophen [Tylenol] 500 mg PO Q4-6H PRN 04/15/18 04/15/18 Gabapentin [Neurontin] 100 mg PO TID 04/15/18 04/15/18 Melatonin 5 mg PO HS 04/15/18 04/15/18 Previous Rx's Medication Instructions Recorded Fluticasone Nasal [place] [Flonase 1 spray EA NOSTRIL DAILY #1 bottle 08/25/18 Nasal [place]] Albuterol Inhaler [Ventolin Hfa 1 - 2 puff INHALATION Q6HR PRN #1 03/28/18 Inhaler] inhaler Allergies Allergy/AdvReac Type Severity Reaction Status Date / Time adhesive Allergy Unknown Verified 04/15/18 12:06 Corticosteroids Allergy Unknown Verified 04/15/18 12:06 (Glucocorticoids) fluoxetine HCl [From Prozac] Allergy Unknown Verified 04/15/18 12:06 latex Allergy Rash/Hives Verified 04/15/18 12:06 olanzapine [From Zyprexa] Allergy Unknown Verified 04/15/18 12:06 prednisone Allergy Unknown Verified 04/15/18 12:06 venlafaxine Allergy Chest Pain Verified 04/15/18 12:06 venom-honey bee Allergy Anaphylaxis Verified 04/15/18 12:06 [bee venom (honey bee)] Review of Systems ROS Statement: Those systems with pertinent positive or pertinent negative responses have been documented in the HPI. ROS Other: All systems not noted in ROS Statement are negative. Past Medical History Past Medical History: COPD, GERD/Reflux, Seizure Disorder, Thyroid Disorder Additional Past Medical History / Comment(s): Chronic back pain, lung nodule followed by Dr. MICHELLE Gilliam, brain lesions being worked up for possible MS, chronic constipation, hypothyroidism in the past and off medications, spondylosis, menopause, History of Any Multi-Drug Resistant Organisms: MRSA Date of last positivie culture/infection: 2011 MDRO Source:: urine Past Surgical History: Back Surgery, Section, Hysterectomy, Orthopedic Surgery, Tubal Ligation Additional Past Surgical History / Comment(s): knee, wrist, sarcodisis, vitamin d deficiency, neck surg Past Psychological History: Anxiety, PTSD Smoking Status: Current every day smoker Past Alcohol Use History: None Reported Past Drug Use History: Marijuana - Past Family History Father Family Medical History: No Reported History Additional Family Medical History / Comment(s): Patient states her father in his 20s as he was murdered. Mother Additional Family Medical History / Comment(s): Mother is alive at age 63 and suffers from Alzheimer's dementia and other "multiple problems." Sister(s) Additional Family Medical History / Comment(s): Patient had 2 sisters. One sister shot and killed herself. Patient has 3 brothers with no major medical problems. General Exam - General Exam Comments Initial Comments: NIH of 0, no no focal neurological findings Limitations: no limitations General appearance: alert, in no apparent distress Head exam: Present: atraumatic, normocephalic, normal inspection Eye exam: Present: normal appearance, PERRL, EOMI. Absent: scleral icterus, conjunctival injection, periorbital swelling ENT exam: Present: normal exam, mucous membranes moist Neck exam: Present: normal inspection. Absent: tenderness, meningismus, lymphadenopathy Respiratory exam: Present: normal lung sounds bilaterally. Absent: respiratory distress, wheezes, rales, rhonchi, stridor Cardiovascular Exam: Present: regular rate, normal rhythm, normal heart sounds. Absent: systolic murmur, diastolic murmur, rubs, gallop, clicks GI/Abdominal exam: Present: soft, normal bowel sounds. Absent: distended, tenderness, guarding, rebound, rigid Extremities exam: Present: normal inspection, full ROM, normal capillary refill. Absent: tenderness, pedal edema, joint swelling, calf tenderness Back exam: Present: normal inspection Neurological exam: Present: alert, oriented X3, CN II-XII intact Psychiatric exam: Present: normal affect, normal mood Skin exam: Present: warm, dry, intact, normal color. Absent: rash Course Vital Signs 04/15/18 04/15/18 04/15/18 11:18 12:00 14:00 Temperature 97.5 F L Pulse Rate 94 66 65 Respiratory 18 18 19 Rate Blood Pressure 112/66 105/64 101/56 O2 Sat by Pulse 99 99 100 Oximetry - Reevaluation(s) Reevaluation #1: 04/15/18 13:09 Medical records thoroughly reviewed Reevaluation #2: 04/15/18 13:09 Patient is without significant improvement in symptoms Reevaluation #3: 04/15/18 14:45 Patient has no medical or clinical change in how she is acting EKG Findings - EKG Comments: EKG Findings:: EKG show NSR rate of 77 SD 154 QRS 80 QTc 450 Medical Decision Making - Medical Decision Making 48 female the ER with nonspecific altered mental status, patient states he can' t think clearly has occasional headache. Patient has CT labwork is normal. We' ll admit for neurology consultation regarding seizures - Lab Data Result diagrams: 04/15/18 12:15 04/15/18 12:15 Lab Results 04/15/18 04/15/18 04/15/18 Range/Units 12:15 12:15 12:15 WBC 4.9 (3.8-10.6) k/uL RBC 4.01 (3.80-5.40) m/uL Hgb 12.2 (11.4-16.0) gm/dL Hct 35.5 (34.0-46.0) % MCV 88.4 (80.0-100.0) fL MCH 30.4 (25.0-35.0) pg MCHC 34.4 (31.0-37.0) g/dL RDW 14.2 (11.5-15.5) % Plt Count 218 (150-450) k/uL Neutrophils % 56 % Lymphocytes % 34 % Monocytes % 6 % Eosinophils % 2 % Basophils % 1 % Neutrophils # 2.7 (1.3-7.7) k/uL Lymphocytes # 1.6 (1.0-4.8) k/uL Monocytes # 0.3 (0-1.0) k/uL Eosinophils # 0.1 (0-0.7) k/uL Basophils # 0.0 (0-0.2) k/uL Sodium 141 (137-145) mmol/L Potassium 4.0 (3.5-5.1) mmol/L Chloride 108 H (98-107) mmol/L Carbon Dioxide 27 (22-30) mmol/L Anion Gap 6 mmol/L BUN 8 (7-17) mg/dL Creatinine 0.82 (0.52-1.04) mg/dL Est GFR (CKD-EPI)AfAm >90 (>60 ml/min/1.73 sqM) Est GFR (CKD-EPI)NonAf 86 (>60 ml/min/1.73 sqM) Glucose 62 L (74-99) mg/dL Calcium 9.2 (8.4-10.2) mg/dL Phosphorus 3.9 (2.5-4.5) mg/dL Magnesium 1.9 (1.6-2.3) mg/dL Total Bilirubin 0.3 (0.2-1.3) mg/dL AST 16 (14-36) U/L ALT 32 (9-52) U/L Alkaline Phosphatase 51 (38-126) U/L Total Creatine Kinase 151 H (30-135) U/L CK-MB (CK-2) 1.5 (0.0-2.4) ng/mL CK-MB (CK-2) Rel Index 1.0 Troponin I <0.012 (0.000-0.034) ng/mL Total Protein 6.3 (6.3-8.2) g/dL Albumin 3.6 (3.5-5.0) g/dL - Radiology Data Radiology results: report reviewed (CT brain negative chest x-rays negative for acute disease), image reviewed Disposition Clinical Impression: Weakness, Bipolar disorder, Altered mental state Disposition: ADMITTED IP TO THIS [facility] Condition: Undetermined Is patient prescribed a controlled substance at d/c from ED?: No Referrals: Sadaf Gan MD [Primary Care Provider] - 1-2 days
[2018-04-15 13:21] LABS: Creatine Kinase MB 1.5 ng/mL (0.0-2.4); Troponin I <0.012 ng/mL (0.000-0.034)
--- NOTE | 2018-04-15 13:25 | CT ---
EXAMINATION TYPE: CT brain wo con DATE OF EXAM: 04/15/2018 COMPARISON: Prior CT brain 04/06/2018 HISTORY: Headache and confusion. CT DLP: 991.4 mGycm. Automated Exposure Control for Dose Reduction was Utilized. TECHNIQUE: CT scan of the head is performed without contrast. FINDINGS: There is no acute intracranial hemorrhage, mass effect, or midline shift identified. The ventricles and sulci are within normal limits in size. The globes are intact and the visualized sin uses are remarkable for minimal inflammatory change in the left maxillary sinus. IMPRESSION: No acute intracranial hemorrhage, mass effect, or midline shift is seen.
--- NOTE | 2018-04-15 14:09 | XR ---
EXAMINATION TYPE: XR chest 2V DATE OF EXAM: 04/15/2018 COMPARISON: Prior chest x-ray 03/28/[address] 04/06/2018 HISTORY: Pain TECHNIQUE: Frontal and lateral views of the chest are obtained. FINDINGS: There is no focal air space opacity, pleural effusion, or pneumothorax seen. The cardiac silhouette size is within normal limits. The osseous structures are intact. There are overlying car diac leads. Postop change noted to the cervical spine. Suspect biapical pleural thickening. There is underlying emphysema. IMPRESSION: No acute cardiopulmonary process.
[2018-04-15] MEDS ORDERED: ASPIRIN 325 MG TAB PO STA (14:41)
[2018-04-15] MEDS ORDERED: SODIUM CHLORIDE 0.9% 1,000 ML IV SCH (14:45)
[2018-04-15 15:05] VITALS: BP 106/56; PULSE 68; RESP 20; TEMP 98.3
[2018-04-15 15:06] LABS: Appearance,Urine Clear (Clear); Bilirubin,Urine Negative (Negative); Blood,Urine Negative (Negative); Color,Urine Light Yellow; Glucose,Urine (UA) Negative (Negative); Ketones,Urine Negative (Negative); Leukocyte Esterase,Urine Negative (Negative); Nitrite,Urine Negative (Negative); Protein,Urine Negative (Negative); Specific Gravity,Urine 1.004 (1.001-1.035); Urobilinogen,Urine <2.0 mg/dL (<2.0)
--- NOTE | 2018-04-15 17:23 | P.EN ---
pt is admitted to our service today , i have got a call from ED about her short time ago, i went to see her and staff told me she signed herself out AMA, before i have a chance to see her or to be informed about her signed AMA
[2018-04-16] MEDS ORDERED: ASPIRIN 325 MG TAB PO SCH (09:00)
== END 2018-04-15 15:00 | disposition left against medical advice (07) ==
LOC: EC 11:17 → 3SCARD 14:43 → UNDOADMOB 14:43 → EC 15:00
DX: F31.9 Bipolar disorder, unspecified (principal); R51 Headache; R42 Dizziness and giddiness; R11.2 Nausea with vomiting, unspecified; G40.909 Epilepsy, unspecified, not intractable, without status epilepticus; G89.29 Other chronic pain; F43.10 Post-traumatic stress disorder, unspecified; F41.9 Anxiety disorder, unspecified; F17.200 Nicotine dependence, unspecified, uncomplicated; Z79.82 Long term (current) use of aspirin; Z79.899 Other long term (current) drug therapy; Z91.040 Latex allergy status; Z91.030 Bee allergy status; Z88.8 Allergy status to other drugs, medicaments and biological substances; Z91.048 Other nonmedicinal substance allergy status
CPT/HCPCS: 36415; 70450; 71046; 80053; 81003; 82550; 82553; 83735; 84100; 84484; 85025; 87086; 93005; 99284

== ENCOUNTER 2018-04-19 19:15 | Observation (INO) | payer MEDICARE ==
[2018-04-19] MEDS ORDERED: METOCLOPRAMIDE 5 MG/ML 2 ML VIAL IVP STA (19:30)
[2018-04-19] MEDS ORDERED: diphenhydrAMINE 50 MG/ML 1 ML VIAL IVP STA (19:30)
[2018-04-19] MEDS ORDERED: KETOROLAC 30 MG/ML 1 ML VIAL IVP STA (19:30)
[2018-04-19] MEDS ORDERED: SODIUM CHLORIDE 0.9% 1,000 ML IV ONE (19:30)
--- NOTE | 2018-04-19 19:35 | ED ---
Headache HPI - General Mode of arrival: EMS Limitations: no limitations <Ijeoma Washington - Last Filed: 04/19/18 22:28> <Twin Sepulveda - Last Filed: 04/19/18 22:50> - General Chief Complaint: Headache Stated Complaint: migraine Time Seen by Provider: 04/19/18 19:24 - History of Present Illness Initial Comments: 48-year-old female patient presents to the emergency department today for complaints of migraine headache. Patient states the headache started this morning. States it is sharp stabbing pain behind the left eye that radiates down to her neck. Patient states she is nauseated and has been vomiting with this today. Patient states she did take gabapentin and Flexeril without relief of symptoms. Patient states she is having some tingling to the left arm. She reports blurred vision. Patient states that she does have a history of migraine headaches and her symptoms are typical of her usual migraine pattern. She denies any head injury. She denies any abdominal pain, chest pain, shortness of breath, dizziness, or weakness. Patient denies any recent rash, fever, chills, diarrhea, constipation, back pain, hematuria, dysuria, urinary urgency, urinary frequency, or any other complaints. (Ijeoma Washington) - Related Data Home Medications Medication Instructions Recorded Confirmed Aspirin 81 mg PO DAILY 12/13/17 04/19/18 Biotin 5 mg PO DAILY 12/13/17 04/19/18 Multivitamins, Thera [Multivitamin 1 tab PO DAILY 12/13/17 04/19/18 (formulary)] [place]-3 Fatty Acids/Fish Oil [Fish 2 cap PO BID 12/13/17 04/19/18 Oil 1,000 mg Softgel] Venlafaxine HCl [Effexor] 75 mg PO BID 12/13/17 04/19/18 Vitamin E 100 unit PO DAILY 12/13/17 04/19/18 traZODone HCL 150 mg PO HS 12/13/17 04/19/18 Loratadine [Claritin] 10 mg PO DAILY 01/10/18 04/19/18 Acetaminophen [Tylenol] 500 mg PO Q4-6H PRN 04/15/18 04/19/18 Gabapentin [Neurontin] 100 mg PO TID 04/15/18 04/19/18 Melatonin 5 mg PO HS 04/15/18 04/19/18 Previous Rx's Medication Instructions Recorded Fluticasone Nasal [place] [Flonase 1 spray EA NOSTRIL DAILY #1 bottle 02/22/18 Nasal [place]] Albuterol Inhaler [Ventolin Hfa 1 - 2 puff INHALATION Q6HR PRN #1 03/28/18 Inhaler] inhaler Allergies Allergy/AdvReac Type Severity Reaction Status Date / Time adhesive Allergy Unknown Verified 04/19/18 19:21 Corticosteroids Allergy Unknown Verified 04/19/18 19:21 (Glucocorticoids) fluoxetine HCl [From Prozac] Allergy Unknown Verified 04/19/18 19:21 latex Allergy Rash/Hives Verified 04/19/18 19:21 olanzapine [From Zyprexa] Allergy Unknown Verified 04/19/18 19:21 prednisone Allergy Unknown Verified 04/19/18 19:21 venlafaxine Allergy Chest Pain Verified 04/19/18 19:21 venom-honey bee Allergy Anaphylaxis Verified 04/19/18 19:21 [bee venom (honey bee)] Review of Systems ROS Other: All systems not noted in ROS Statement are negative. <Ijeoma Washington - Last Filed: 04/19/18 22:28> ROS Other: All systems not noted in ROS Statement are negative. <Twin Sepulveda - Last Filed: 04/19/18 22:50> ROS Statement: Those systems with pertinent positive or pertinent negative responses have been documented in the HPI. Past Medical History Past Medical History: COPD, GERD/Reflux, Seizure Disorder, Thyroid Disorder Additional Past Medical History / Comment(s): Chronic back pain, lung nodule followed by Dr. MICHELLE Gilliam, brain lesions being worked up for possible MS, chronic constipation, hypothyroidism in the past and off medications, spondylosis, menopause, History of Any Multi-Drug Resistant Organisms: MRSA Date of last positivie culture/infection: 2011 MDRO Source:: urine Past Surgical History: Back Surgery, Section, Hysterectomy, Orthopedic Surgery, Tubal Ligation Additional Past Surgical History / Comment(s): knee, wrist, sarcodisis, vitamin d deficiency, neck surg Past Psychological History: Anxiety, PTSD Smoking Status: Current every day smoker Past Alcohol Use History: None Reported Past Drug Use History: Marijuana - Past Family History Father Family Medical History: No Reported History Additional Family Medical History / Comment(s): Patient states her father in his 20s as he was murdered. Mother Additional Family Medical History / Comment(s): Mother is alive at age 63 and suffers from Alzheimer's dementia and other "multiple problems." Sister(s) Additional Family Medical History / Comment(s): Patient had 2 sisters. One sister shot and killed herself. Patient has 3 brothers with no major medical problems. <Ijeoma Washington - Last Filed: 04/19/18 22:28> General Exam Limitations: no limitations General appearance: alert, in no apparent distress, other (This is a well- developed, thin appearing adult female patient in mild distress related to pain. Vital signs upon presentation are temperature 97.9F, pulse 93, respirations 22, blood pressure 125/79, pulse ox 97% on room air.) Eye exam: Present: normal appearance, PERRL, EOMI. Absent: scleral icterus, conjunctival injection, nystagmus, periorbital swelling ENT exam: Present: normal exam, normal oropharynx, mucous membranes moist Respiratory exam: Present: normal lung sounds bilaterally. Absent: respiratory distress, wheezes, rales, rhonchi, stridor Cardiovascular Exam: Present: regular rate, normal rhythm, normal heart sounds. Absent: systolic murmur, diastolic murmur, rubs, gallop, clicks GI/Abdominal exam: Present: soft, normal bowel sounds. Absent: distended, tenderness, guarding, rebound, rigid Neurological exam: Present: alert, oriented X3, CN II-XII intact Psychiatric exam: Present: normal affect, normal mood Skin exam: Present: warm, dry, intact, normal color. Absent: rash <Ijeoma Washington - Last Filed: 04/19/18 22:28> Course <Ijeoma Washington - Last Filed: 04/19/18 22:28> <Twin Sepulveda - Last Filed: 04/19/18 22:50> Vital Signs 04/19/18 04/19/18 04/19/18 19:18 20:30 21:29 Temperature 97.9 F Pulse Rate 93 69 73 Respiratory 22 16 20 Rate Blood Pressure 125/79 117/69 110/70 O2 Sat by Pulse 97 98 99 Oximetry 04/19/18 22:32 Temperature 97.9 F Pulse Rate 67 Respiratory 6 L Rate Blood Pressure 114/83 O2 Sat by Pulse 98 Oximetry - Reevaluation(s) Reevaluation #1: 04/19/18 21:04 Went into reevaluate patient. Did wake her up from sleep, states that she is not feeling any better. She is still nauseous and still has headache. Upon further questioning patient states that the medication might have less of the intensity somewhat but she still has significant pain. (Ijeoma Washington) Reevaluation #2: 04/19/18 22:15 Reevaluated patient after she was dosed with Morphine. Patient is more alert and better able to provide information. She states that her head feels like "mashed potatoes" like it is hard to think and she has difficulty processing her thoughts. States that she is still having numbness and tingling to the left arm. States that she was admitted the other day for similar symptoms, but had to leave AMA due to family issues. She states she does not feel comfortable being discharged at this time. (Ijeoma Washington) Medical Decision Making - Radiology Data Radiology results: report reviewed <Ijeoma Washington - Last Filed: 04/19/18 22:28> - Lab Data Result diagrams: 04/19/18 19:30 <Twin Sepulveda - Last Filed: 04/19/18 22:50> - Medical Decision Making 48-year-old female patient presents to emergency department today for complaints of left frontal headache behind the left eye that radiates to her neck. Patient is also reporting confused thinking and paresthesia to the left arm. Patient states she's been having these symptoms for the last 4 days. States was seen and evaluated here in the and was going to be admitted for neurologic evaluation however she had to leave AGAINST MEDICAL ADVICE for family reasons. Patient physical exam today is relatively unremarkable. I don' t detect any neurologic deficits. She did have a CT of the brain on her last visit which showed no acute intracranial abnormalities. Patient was given 2 rounds of medication for headache, states it is still quite severe. Given patient's four-day history of symptoms we will admit to the hospital for intractable headache and neurologic evaluation. (Ijeoma Washington) EKG was done and reviewed at 2243 showing sinus bradycardia rate 58. No acute ST elevation no ectopy. [place] interval is 164 QRS [address] QT [address] Sepulveda ( Twin Sepulveda) - Lab Data Lab Results 04/19/18 Range/Units 19:30 WBC 6.7 (3.8-10.6) k/uL RBC 4.49 (3.80-5.40) m/uL Hgb 13.0 (11.4-16.0) gm/dL Hct 39.6 (34.0-46.0) % MCV 88.2 (80.0-100.0) fL MCH 29.0 (25.0-35.0) pg MCHC 32.9 (31.0-37.0) g/dL RDW 14.4 (11.5-15.5) % Plt Count 273 (150-450) k/uL Neutrophils % 57 % Lymphocytes % 33 % Monocytes % 7 % Eosinophils % 1 % Basophils % 0 % Neutrophils # 3.8 (1.3-7.7) k/uL Lymphocytes # 2.2 (1.0-4.8) k/uL Monocytes # 0.5 (0-1.0) k/uL Eosinophils # 0.0 (0-0.7) k/uL Basophils # 0.0 (0-0.2) k/uL - Radiology Data CT brain was obtained on 04/15/2018 showed no acute intracranial hemorrhage, mass effect, or midline shift. The ventricles and sulci are within normal limits in size. The globes are intact and visualized sinuses are remarkable for minimal inflammatory change in the left maxillary sinus. Impression by Dr. Gaytan shows no acute intracranial hemorrhage, mass effect, or midline shift. ( Ijeoma Washington) Disposition Decision to Admit Reason: Admit from EC Decision Date: 04/19/18 Decision Time: 22:30 <Ijeoma Washington - Last Filed: 04/19/18 22:28> <Twin Sepulveda - Last Filed: 04/19/18 22:50> Clinical Impression: Intractable headache, Paresthesia, Altered mental status Disposition: ADMITTED IP TO THIS [facility] Condition: Serious Referrals: Sadaf Gan MD [Primary Care Provider] - 1-2 days
[2018-04-19] MEDS ORDERED: MORPHINE SULFATE 4 MG/ML SYRINGE IVP STA (20:57)
[2018-04-19] MEDS ORDERED: NALOXONE 0.4 MG/ML 1 ML VIAL IV PRN (22:25)
[2018-04-19 22:47] LABS: Basophils % (A) 0 %; Eosinophils % (A) 1 %; HCT 39.6 % (34.0-46.0); Lymphocytes # (A) 2.2 k/uL (1.0-4.8); Lymphocytes % (A) 33 %; MCHC 32.9 g/dL (31.0-37.0); MCV 88.2 fL (80.0-100.0); Mean Platelet Volume 9.5; Monocytes # (A) 0.5 k/uL (0-1.0); Monocytes % (A) 7 %; Neutrophils # (A) 3.8 k/uL (1.3-7.7); Neutrophils % (A) 57 %; Platelet Count 273 k/uL (150-450); RBC 4.49 m/uL (3.80-5.40); RDW 14.4 % (11.5-15.5); WBC 6.7 k/uL (3.8-10.6)
[2018-04-19 22:57] LABS: ALT 32 U/L (9-52); AST 19 U/L (14-36); Albumin 4.5 g/dL (3.5-5.0); Alkaline Phosphatase 79 U/L (38-126); Anion Gap 11 mmol/L; Blood Urea Nitrogen 12 mg/dL (7-17); Calcium 9.8 mg/dL (8.4-10.2); Carbon Dioxide 24 mmol/L (22-30); Chloride 106 mmol/L (98-107); Glucose 66 mg/dL (74-99); Potassium 4.1 mmol/L (3.5-5.1); Sodium 141 mmol/L (137-145); Total Bilirubin 0.4 mg/dL (0.2-1.3); Total Protein 7.7 g/dL (6.3-8.2)
[2018-04-19 23:00] LABS: Creatine Kinase 144 U/L (30-135)
[2018-04-19 23:13] LABS: Creatine Kinase MB 1.6 ng/mL (0.0-2.4); Troponin I <0.012 ng/mL (0.000-0.034)
[2018-04-20 00:10] VITALS: BMI 22.3
[2018-04-20] MEDS: KETOROLAC 30 MG/ML 1 ML VIAL IVP PRN ×2 (00:26→06:30)
[2018-04-20] MEDS: MORPHINE SULFATE 4 MG/ML SYRINGE IV PRN ×3 (02:43→12:50)
[2018-04-20 12:21] VITALS: BP 135/87; PULSE 62; RESP 18; TEMP 97.5
--- NOTE | 2018-04-20 13:50 | P.CONS ---
History of Present Illness - Reason for Consult Consult date: 04/20/18 Headache - Chief Complaint Headache - History of Present Illness This 48-year-old female being evaluated by the neurology service for headache. She has a long history of chronic migraine headaches. She said this headache is similar to her typical headaches. This headache has been going on for 3-4 days. There've been no focal neurological deficits. She had a normal head CT on 04/15 for similar symptoms. She denies vomiting or recent fever. No recent head injuries. She says she has been on numerous medications having reactions to most of them. She cannot take steroids because she says she had an anaphylactic reaction to numerous kinds. She will not take Tylenol, NSAIDs her Toradol as she says they don't work. Apparently she is requesting morphine. At the time of my exam she is sitting up in her bed in some mild distress. Review of Systems All systems: negative Constitutional: Reports as per HPI Past Medical History Past Medical History: Chest Pain / Angina, COPD, GERD/Reflux, Hyperlipidemia, Hypertension, Seizure Disorder, Thyroid Disorder Additional Past Medical History / Comment(s): Chronic back pain, , brain lesions negative for ms always, constipation, hypothyroidism in the past and off medications, spondylosis, menopause, seizure yesterday per patient absent seizure couple times a day, gastroparesis normally blood pressure is 70/30, antibiotic within last 30 days due to ecoli in urine History of Any Multi-Drug Resistant Organisms: MRSA Year Discovered:: 2011 MDRO Source:: urine Past Surgical History: Back Surgery, Section, Hysterectomy, Orthopedic Surgery, Tubal Ligation Additional Past Surgical History / Comment(s): knee, wrist, sarcodisis, vitamin d deficiency, neck surg Past Psychological History: Anxiety, Bipolar, Panic Disorder, PTSD, Schizophrenia Additional Psychological History / Comment(s): per patient anxiety so bad it will through her into seizure per pt it is absent seizure ran numerous tests per pt nonepiliptic seizure like activity body just goes limp like passing out Smoking Status: Current every day smoker Past Alcohol Use History: None Reported Additional Past Alcohol Use History / Comment(s): Patient states she smokes 2 packs of cigarettes per day. She also smokes weed every day. She states she has a medical marijuana card. She denies any street drug use and she denies alcohol use. Past Drug Use History: Marijuana Additional Drug Use History / Comment(s): Admits to smoking a "2-3 bowls of marijuana every day". if not more bowls a day - Past Family History Father Family Medical History: No Reported History Additional Family Medical History / Comment(s): Patient states her father in his 20s as he was murdered. Mother Additional Family Medical History / Comment(s): Mother is alive at age 63 and suffers from Alzheimer's dementia and other "multiple problems." Sister(s) Additional Family Medical History / Comment(s): Patient had 2 sisters. One sister shot and killed herself. Patient has 3 brothers with no major medical problems. Medications and Allergies Home Medications Medication Instructions Recorded Confirmed Type Aspirin 81 mg PO DAILY 12/13/17 04/20/18 History Biotin 5 mg PO DAILY 12/13/17 04/20/18 History Multivitamins, Thera [Multivitamin 1 tab PO DAILY 12/13/17 04/20/18 History (formulary)] [place]-3 Fatty Acids/Fish Oil [Fish 2 cap PO BID 12/13/17 04/20/18 History Oil 1,000 mg Softgel] Vitamin E 100 unit PO DAILY 12/13/17 04/20/18 History traZODone HCL 150 mg PO HS 12/13/17 04/20/18 History Loratadine [Claritin] 10 mg PO DAILY 01/10/18 04/20/18 History Fluticasone Nasal [place] [Flonase 1 spray EA NOSTRIL DAILY #1 bottle 02/22/18 Rx Nasal [place]] Gabapentin [Neurontin] 100 mg PO TID 04/15/18 04/20/18 History Melatonin 5 mg PO HS 04/15/18 04/20/18 History Cyclobenzaprine [Flexeril] 10 mg PO TID PRN 04/19/18 04/20/18 History Levothyroxine Sodium [Synthroid] 50 mcg PO DAILY 04/19/18 04/20/18 History Pantoprazole Sodium [Protonix] 40 mg PO DAILY@0600 04/19/18 04/20/18 History Albuterol Inhaler [Ventolin Hfa 1 - 2 puff INHALATION RT-Q6H PRN 04/20/18 History Inhaler] Venlafaxine HCl [Effexor] 75 mg PO BID 04/20/18 04/20/18 History Allergies Allergy/AdvReac Type Severity Reaction Status Date / Time adhesive Allergy Unknown Verified 04/20/18 08:59 Corticosteroids Allergy Unknown Verified 04/20/18 08:59 (Glucocorticoids) fluoxetine HCl [From Prozac] Allergy Unknown Verified 04/20/18 08:59 latex Allergy Rash/Hives Verified 04/20/18 08:59 olanzapine [From Zyprexa] Allergy Unknown Verified 04/20/18 08:59 prednisone Allergy Unknown Verified 04/20/18 08:59 venlafaxine Allergy Chest Pain Verified 04/20/18 08:59 venom-honey bee Allergy Anaphylaxis Verified 04/20/18 08:59 [bee venom (honey bee)] Physical Exam Vitals: Vital Signs Temp Pulse Pulse Resp BP BP Pulse Ox 04/20/18 12:05 97.5 F L 62 18 135/87 99 04/20/18 08:00 59 L 16 04/20/18 05:00 97.6 F 59 L 16 109/61 96 04/19/18 23:32 97.8 F 75 16 137/85 99 04/19/18 22:32 97.9 F 67 16 114/83 98 04/19/18 21:29 73 20 110/70 99 04/19/18 20:30 69 16 117/69 98 04/19/18 19:18 97.9 F 93 22 125/79 97 Intake and Output 04/19/18 04/20/18 04/20/18 22:59 06:59 14:59 Intake Total 600 480 Balance 600 480 Intake: Oral 600 480 Other: Voiding Method Toilet Toilet # Voids 1 4 Weight 58.967 kg 58.967 kg - Constitutional General appearance: cooperative, mild distress, thin - EENT Eyes: no abnormal pupil, edentulous, EOMI, PERRLA, no ptosis ENT: hearing grossly normal - Neck Neck: normal ROM, no rigidity - Respiratory Respiratory: negative: prolonged expiration, prolonged inspiration - Cardiovascular Rhythm: regular - Gastrointestinal General gastrointestinal: no distended, no tenderness - Neurologic The patient is alert awake and oriented 3. Speech and language are normal. There is no facial asymmetry. Strength is 5 out of 5 in bilateral upper and lower extremities. There is no sensory deficit. No tremors or seizures are seen. Cranial nerves II through XII are intact globally. Results CBC & Chem 7: 04/19/18 19:30 04/19/18 19:30 Labs: Abnormal Lab Results - Last 24 Hours (Table) 04/19/18 04/19/18 Range/Units 19:30 19:30 Glucose 66 L (74-99) mg/dL Total Creatine Kinase 144 H (30-135) U/L Assessment and Plan (1) Headache, migraine, intractable, with status migrainosus Current Visit: Yes Status: Acute Code(s): G43.911 - MIGRAINE, UNSPECIFIED, INTRACTABLE, WITH STATUS MIGRAINOSUS SNOMED Code(s): 251946019 Plan: I offered her a few options. She does not want an IV cocktail of any kind because when I mentioned what we may be putting end she says she has a reaction to them. She declines many suggestions for prophylactic medications. She has no focal neurological deficits. No further neurological workup is needed. Pain medications as deemed necessary by the admitting physician. We can be called as needed for any changes in her neurological status. I have performed a history and physical on the above patient. I have reviewed the above note, and agree.
[2018-04-20] MEDS ORDERED: BUTALB/APAP/CAFF 50-325-40MG TAB PO PRN (14:38)
--- NOTE | 2018-04-20 17:07 | P.HPIM ---
History of Present Illness 48-year-old female came in with severe headaches. Patient was known patient to neurology service evaluated the patient appears to have her migraine headaches patient does have chronic migraine although appeared to seek opiates and doesn' t want any other recommendations. Patient the is not willing to take Nonsteroidal anti-inflammatory is Tylenol. I offered her Fioricet initially agreed later declined to take that medication. Initially after agreement to send the prescription to the pharmacy. Patient had a normal computed tomography scan of the head. Patient in the past appears to have been extensively evaluated for some lesions on MRI of the brain for possible multiple sclerosis including an LP which ruled out multiple sclerosis. Her complains that she has some visual deficits although upon objective exam grossly she does not appear to have any visual deficits or any other neurological deficits. Patient is requesting opiates for her pain extensively counseled opiates are not recommended for migraine headaches. Patient does not have any intracranial bleed or any emergency that need to be addressed in hospital. Patient already has an appointment with her neurologist patient will be discharged with prescription of Fioricet. Patient objectively is very comfortable without any photophobia or phonophobia does not appear to be in significant pain vitals are stable. Review of Systems REVIEW OF SYSTEMS: CONSTITUTIONAL: No fever, no malaise, no fatigue. HEENT: No recent visual problems or hearing problems. Denied any sore throat. CARDIOVASCULAR: No chest pain, orthopnea, PND, no palpitations, no syncope. PULMONARY: No shortness of breath, no cough, no hemoptysis. GASTROINTESTINAL: No diarrhea, no nausea, no vomiting, no abdominal pain. Normoactive bowel sounds. NEUROLOGICAL: no weakness, no numbness. HEMATOLOGICAL: Denies any bleeding or petechiae. GENITOURINARY: Denies any burning micturition, frequency, or urgency. MUSCULOSKELETAL/RHEUMATOLOGICAL: Denies any joint pain, swelling, or any muscle pain. ENDOCRINE: Denies any polyuria or polydipsia. The rest of the 14-point review of systems is negative. Past Medical History Past Medical History: Chest Pain / Angina, COPD, GERD/Reflux, Hyperlipidemia, Hypertension, Seizure Disorder, Thyroid Disorder Additional Past Medical History / Comment(s): Chronic back pain, , brain lesions negative for ms always, constipation, hypothyroidism in the past and off medications, spondylosis, menopause, seizure yesterday per patient absent seizure couple times a day, gastroparesis normally blood pressure is 70/30, antibiotic within last 30 days due to ecoli in urine History of Any Multi-Drug Resistant Organisms: MRSA Date of last positivie culture/infection: 2011 MDRO Source:: urine Past Surgical History: Back Surgery, Section, Hysterectomy, Orthopedic Surgery, Tubal Ligation Additional Past Surgical History / Comment(s): knee, wrist, sarcodisis, vitamin d deficiency, neck surg Past Psychological History: Anxiety, Bipolar, Panic Disorder, PTSD, Schizophrenia Additional Psychological History / Comment(s): per patient anxiety so bad it will through her into seizure per pt it is absent seizure ran numerous tests per pt nonepiliptic seizure like activity body just goes limp like passing out Smoking Status: Current every day smoker Past Alcohol Use History: None Reported Additional Past Alcohol Use History / Comment(s): Patient states she smokes 2 packs of cigarettes per day. She also smokes weed every day. She states she has a medical marijuana card. She denies any street drug use and she denies alcohol use. Past Drug Use History: Marijuana Additional Drug Use History / Comment(s): Admits to smoking a "2-3 bowls of marijuana every day". if not more bowls a day - Past Family History Father Family Medical History: No Reported History Additional Family Medical History / Comment(s): Patient states her father in his 20s as he was murdered. Mother Additional Family Medical History / Comment(s): Mother is alive at age 63 and suffers from Alzheimer's dementia and other "multiple problems." Sister(s) Additional Family Medical History / Comment(s): Patient had 2 sisters. One sister shot and killed herself. Patient has 3 brothers with no major medical problems. Medications and Allergies Home Medications Medication Instructions Recorded Confirmed Type Aspirin 81 mg PO DAILY 12/13/17 04/20/18 History Biotin 5 mg PO DAILY 12/13/17 04/20/18 History Multivitamins, Thera [Multivitamin 1 tab PO DAILY 12/13/17 04/20/18 History (formulary)] [place]-3 Fatty Acids/Fish Oil [Fish 2 cap PO BID 12/13/17 04/20/18 History Oil 1,000 mg Softgel] Vitamin E 100 unit PO DAILY 12/13/17 04/20/18 History traZODone HCL 150 mg PO HS 12/13/17 04/20/18 History Loratadine [Claritin] 10 mg PO DAILY 01/10/18 04/20/18 History Fluticasone Nasal [place] [Flonase 1 spray EA NOSTRIL DAILY #1 bottle 02/22/18 Rx Nasal [place]] Gabapentin [Neurontin] 100 mg PO TID 04/15/18 04/20/18 History Melatonin 5 mg PO HS 04/15/18 04/20/18 History Cyclobenzaprine [Flexeril] 10 mg PO TID PRN 04/19/18 04/20/18 History Levothyroxine Sodium [Synthroid] 50 mcg PO DAILY 04/19/18 04/20/18 History Pantoprazole Sodium [Protonix] 40 mg PO DAILY@0600 04/19/18 04/20/18 History Albuterol Inhaler [Ventolin Hfa 1 - 2 puff INHALATION RT-Q6H PRN 04/20/18 History Inhaler] Butalb/Acetaminophen/Caffeine 1 - 2 cap PO Q4HR #30 cap 04/20/18 Rx [Fioricet 50-300-40 mg Capsule] Venlafaxine HCl [Effexor] 75 mg PO BID 04/20/18 04/20/18 History Allergies Allergy/AdvReac Type Severity Reaction Status Date / Time adhesive Allergy Unknown Verified 04/20/18 08:59 Corticosteroids Allergy Unknown Verified 04/20/18 08:59 (Glucocorticoids) fluoxetine HCl [From Prozac] Allergy Unknown Verified 04/20/18 08:59 latex Allergy Rash/Hives Verified 04/20/18 08:59 olanzapine [From Zyprexa] Allergy Unknown Verified 04/20/18 08:59 prednisone Allergy Unknown Verified 04/20/18 08:59 venlafaxine Allergy Chest Pain Verified 04/20/18 08:59 venom-honey bee Allergy Anaphylaxis Verified 04/20/18 08:59 [bee venom (honey bee)] Physical Exam Vitals: Vital Signs Temp Pulse Pulse Resp BP BP Pulse Ox 04/20/18 12:05 97.5 F L 62 18 135/87 99 04/20/18 08:00 59 L 16 04/20/18 05:00 97.6 F 59 L 16 109/61 96 04/19/18 23:32 97.8 F 75 16 137/85 99 04/19/18 22:32 97.9 F 67 16 114/83 98 04/19/18 21:29 73 20 110/70 99 04/19/18 20:30 69 16 117/69 98 04/19/18 19:18 97.9 F 93 22 125/79 97 Intake and Output 04/20/18 04/20/18 04/20/18 06:59 14:59 22:59 Intake Total 600 480 Balance 600 480 Intake: Oral 600 480 Other: Voiding Method Toilet Toilet # Voids 1 4 Weight 58.967 kg PHYSICAL EXAMINATION: GENERAL: The patient is alert and oriented x3, not in any acute distress. Well developed, well nourished. HEENT: Pupils are round and equally reacting to light. EOMI. No scleral icterus. No conjunctival pallor. Normocephalic, atraumatic. No pharyngeal erythema. No thyromegaly. CARDIOVASCULAR: S1 and S2 present. No murmurs, rubs, or gallops. PULMONARY: Chest is clear to auscultation, no wheezing or crackles. ABDOMEN: Soft, nontender, nondistended, normoactive bowel sounds. No palpable organomegaly. MUSCULOSKELETAL: No joint swelling or deformity. EXTREMITIES: No cyanosis, clubbing, or pedal edema. NEUROLOGICAL: Gross neurological examination did not reveal any focal deficits. SKIN: No rashes. Results CBC & Chem 7: 04/19/18 19:30 04/19/18 19:30 Labs: Abnormal Lab Results - Last 24 Hours (Table) 04/19/18 04/19/18 Range/Units 19:30 19:30 Glucose 66 L (74-99) mg/dL Total Creatine Kinase 144 H (30-135) U/L Thrombosis Risk Factor Assmnt - Choose All That Apply Any of the Below Risk Factors Present?: Yes Each Factor Represents 1 point: Abnormal pulmonary function (COPD), Age 41-60 years Other Risk Factors: No Other congenital or acquired thrombophilia - If yes, enter type in comment: No Thrombosis Risk Factor Assessment Total Risk Factor Score: 2 Thrombosis Risk Factor Assessment Level: Low Risk Assessment and Plan Plan: -Headaches possible migraine: Further management was already dictated in the HPI patient does not have any photophobia neurological weakness or any new deficits. Patient appears to be comfortable at this time will be discharged on Fioricet. The other differential for her headache is narcotic seeking behavior -COPD without any significant exacerbation [place]-hyperlipidemia -Hypothyroidism -Schizophrenia and anxiety disorder: Patient is not willing to take any of her any antipsychotic or antidepressants although requesting that I fill Klonopin for her which I declined. -Marijuana use: Counseling was provided -Nicotine use
== END 2018-04-20 15:27 | disposition home or self-care (01) ==
LOC: EC 19:15 → 3NMEDONC 22:59
PROVIDERS: ADMIT Internal Medicine; ATTEND Internal Medicine
DX: G43.911 Migraine, unspecified, intractable, with status migrainosus (principal); Z76.5 Malingerer [conscious simulation]; J44.9 Chronic obstructive pulmonary disease, unspecified; E78.5 Hyperlipidemia, unspecified; E03.9 Hypothyroidism, unspecified; F41.9 Anxiety disorder, unspecified; F20.9 Schizophrenia, unspecified; K21.9 Gastro-esophageal reflux disease without esophagitis; R20.2 Paresthesia of skin; G89.29 Other chronic pain; M54.9 Dorsalgia, unspecified; F43.10 Post-traumatic stress disorder, unspecified; F31.9 Bipolar disorder, unspecified; F41.0 Panic disorder [episodic paroxysmal anxiety]; R91.1 Solitary pulmonary nodule; K59.09 Other constipation; I10 Essential (primary) hypertension; G40.909 Epilepsy, unspecified, not intractable, without status epilepticus; G93.9 Disorder of brain, unspecified; M47.9 Spondylosis, unspecified; F17.210 Nicotine dependence, cigarettes, uncomplicated; Z82.0 Family history of epilepsy and other diseases of the nervous system; Z79.82 Long term (current) use of aspirin; Z79.899 Other long term (current) drug therapy; Z86.14 Personal history of Methicillin resistant Staphylococcus aureus infection; Z91.030 Bee allergy status; Z91.040 Latex allergy status; Z88.8 Allergy status to other drugs, medicaments and biological substances; Z91.048 Other nonmedicinal substance allergy status; Z79.890 Hormone replacement therapy
CPT/HCPCS: 99285; 96374 ×2; 96375 ×4; 96361 ×3; 96376; 36415; 93005; 80053; 82550; 82553; 84484; 85025; 85610; 85730; G0378 ×2; J2270 ×2; J1200; J2765; J1885 ×2

== ENCOUNTER 2018-04-25 13:13 | Inpatient (IN) | payer MEDICARE ==
--- NOTE | 2018-04-25 13:43 | ED ---
General Adult HPI - General Chief complaint: Psychiatric Symptoms Stated complaint: mental health Time Seen by Provider: 04/25/18 13:22 Source: patient, family, RN notes reviewed, Caregiver Mode of arrival: ambulatory Limitations: no limitations - History of Present Illness Initial comments: Patient is a pleasant 48-year-old female presenting to the emergency department for mental health evaluation. Patient feels depressed and having suicidal thoughts. Symptoms have been present the past week or so. Patient has multiple stressors. Patient does have plan however will not stay at this time. Patient does have a history of previous self-harm. Patient has been more anxious lately. Patient has not been any or drinking well. Patient is hearing voices which is new thing for her. Patient is unable to make a with the voices are saying. No homicidal thoughts. No visual hallucinations. No new physical complaints. - Related Data Home Medications Medication Instructions Recorded Confirmed Aspirin 81 mg PO DAILY 12/13/17 04/25/18 Biotin 5 mg PO DAILY 12/13/17 04/25/18 Multivitamins, Thera [Multivitamin 1 tab PO DAILY 12/13/17 04/25/18 (formulary)] [place]-3 Fatty Acids/Fish Oil [Fish 2 cap PO BID 12/13/17 04/25/18 Oil 1,000 mg Softgel] Vitamin E 100 unit PO DAILY 12/13/17 04/25/18 traZODone HCL 150 mg PO HS 12/13/17 04/25/18 Loratadine [Claritin] 10 mg PO DAILY 01/10/18 04/25/18 Gabapentin [Neurontin] 100 mg PO TID 04/15/18 04/25/18 Melatonin 5 mg PO HS 04/15/18 04/25/18 Cyclobenzaprine [Flexeril] 10 mg PO TID PRN 04/19/18 04/25/18 Levothyroxine Sodium [Synthroid] 50 mcg PO DAILY 04/19/18 04/25/18 Pantoprazole Sodium [Protonix] 40 mg PO DAILY@0600 04/19/18 04/25/18 Evening [place] Oil 500 mg PO DAILY 04/25/18 04/25/18 Ibuprofen [Motrin] 600 mg PO Q8HR PRN 04/25/18 04/25/18 Lidocaine Viscous 2% [Xylocaine 5 ml MUCOUS MEM TID 04/25/18 04/25/18 Viscous] Soy Isofla/Blk [place]/Mag Bark 155 mg PO HS 04/25/18 04/25/18 [Estroven 155 mg Capsule] Allergies Allergy/AdvReac Type Severity Reaction Status Date / Time adhesive Allergy Unknown Verified 04/25/18 14:10 Corticosteroids Allergy Unknown Verified 04/25/18 14:10 (Glucocorticoids) fluoxetine HCl [From Prozac] Allergy Unknown Verified 04/25/18 14:10 latex Allergy Rash/Hives Verified 04/25/18 14:10 olanzapine [From Zyprexa] Allergy Unknown Verified 04/25/18 14:10 prednisone Allergy Unknown Verified 04/25/18 14:10 venlafaxine Allergy Chest Pain Verified 04/25/18 14:10 venom-honey bee Allergy Anaphylaxis Verified 04/25/18 14:10 [bee venom (honey bee)] Review of Systems ROS Statement: Those systems with pertinent positive or pertinent negative responses have been documented in the HPI. ROS Other: All systems not noted in ROS Statement are negative. Constitutional: Denies: fever Eyes: Denies: eye pain ENT: Denies: ear pain Respiratory: Denies: cough Cardiovascular: Denies: chest pain Endocrine: Denies: fatigue Gastrointestinal: Denies: abdominal pain Genitourinary: Denies: dysuria Musculoskeletal: Denies: back pain Neurological: Denies: headache Psychiatric: Reports: anxiety, depression, suicidal thoughts Past Medical History Past Medical History: Chest Pain / Angina, COPD, GERD/Reflux, Hyperlipidemia, Hypertension, Seizure Disorder, Thyroid Disorder Additional Past Medical History / Comment(s): Chronic back pain, , brain lesions negative for ms always, constipation, hypothyroidism in the past and off medications, spondylosis, menopause, seizure yesterday per patient absent seizure couple times a day, gastroparesis normally blood pressure is 70/30, antibiotic within last 30 days due to ecoli in urine History of Any Multi-Drug Resistant Organisms: MRSA Date of last positivie culture/infection: 2011 MDRO Source:: urine Past Surgical History: Back Surgery, Section, Hysterectomy, Orthopedic Surgery, Tubal Ligation Additional Past Surgical History / Comment(s): knee, wrist, sarcodisis, vitamin d deficiency, neck surg Past Psychological History: Anxiety, Bipolar, Panic Disorder, PTSD, Schizophrenia Smoking Status: Current every day smoker Past Alcohol Use History: None Reported Past Drug Use History: Marijuana - Past Family History Father Family Medical History: No Reported History Additional Family Medical History / Comment(s): Patient states her father in his 20s as he was murdered. Mother Additional Family Medical History / Comment(s): Mother is alive at age 63 and suffers from Alzheimer's dementia and other "multiple problems." Sister(s) Additional Family Medical History / Comment(s): Patient had 2 sisters. One sister shot and killed herself. Patient has 3 brothers with no major medical problems. General Exam Limitations: no limitations General appearance: alert, in no apparent distress Head exam: Present: atraumatic Eye exam: Present: normal appearance, PERRL ENT exam: Present: normal oropharynx Neck exam: Present: normal inspection Respiratory exam: Present: normal lung sounds bilaterally Cardiovascular Exam: Present: regular rate, normal rhythm GI/Abdominal exam: Present: soft. Absent: tenderness Extremities exam: Present: normal inspection Neurological exam: Present: alert Psychiatric exam: Present: depressed, flat affect Skin exam: Present: normal color Course Vital Signs 04/25/18 13:21 Temperature 98.3 F Pulse Rate 69 Respiratory 16 Rate Blood Pressure 109/69 O2 Sat by Pulse 98 Oximetry EKG Findings - EKG Comments: EKG Findings:: Normal sinus rhythm 61. HI 160. QRS 82. QT 418. QTC 420. Normal axis. Normal QRS. No acute ST changes. Medical Decision Making - Medical Decision Making Patient was seen by mental health services with plan for admission - Lab Data Result diagrams: 04/25/18 15:30 Lab Results 04/25/18 04/25/18 Range/Units 15:30 15:30 Sodium 139 (137-145) mmol/L Potassium 4.0 (3.5-5.1) mmol/L Chloride 106 (98-107) mmol/L Carbon Dioxide 25 (22-30) mmol/L Anion Gap 8 mmol/L BUN 13 (7-17) mg/dL Creatinine 0.82 (0.52-1.04) mg/dL Est GFR (CKD-EPI)AfAm >90 (>60 ml/min/1.73 sqM) Est GFR (CKD-EPI)NonAf 86 (>60 ml/min/1.73 sqM) Glucose 78 (74-99) mg/dL Calcium 9.9 (8.4-10.2) mg/dL Urine Color Yellow Urine Appearance Clear (Clear) Urine pH 6.0 (5.0-8.0) Ur Specific [place] 1.010 (1.001-1.035) Urine Protein Negative (Negative) Urine Glucose (UA) Negative (Negative) Urine Ketones Negative (Negative) Urine Blood Trace H (Negative) Urine Nitrite Negative (Negative) Urine Bilirubin Negative (Negative) Urine Urobilinogen <2.0 (<2.0) mg/dL Ur Leukocyte Esterase Negative (Negative) Urine RBC 3 (0-5) /hpf Urine WBC 2 (0-5) /hpf Ur Squamous Epith Cells 2 (0-4) /hpf Urine Bacteria Rare H (None) /hpf Urine Mucus Few H (None) /hpf Urine Opiates Screen Detected H (NotDetected) Ur Oxycodone Screen Not Detected (NotDetected) Urine Methadone Screen Not Detected (NotDetected) Ur Propoxyphene Screen Not Detected (NotDetected) Ur Barbiturates Screen Not Detected (NotDetected) U Tricyclic Antidepress Detected H (NotDetected) Ur Phencyclidine Scrn Not Detected (NotDetected) Ur Amphetamines Screen Not Detected (NotDetected) U Methamphetamines Scrn Not Detected (NotDetected) U Benzodiazepines Scrn Not Detected (NotDetected) Urine Cocaine Screen Not Detected (NotDetected) U Marijuana (THC) Screen Detected H (NotDetected) Disposition Clinical Impression: Depression, Suicidal ideation Disposition: TRANSFER TO PSYCH HOSP/UNIT Is patient prescribed a controlled substance at d/c from ED?: No Referrals: Sadaf Gan MD [Primary Care Provider] - 1-2 days Decision Time: 16:16
[2018-04-25 16:02] LABS: Anion Gap 8 mmol/L; Blood Urea Nitrogen 13 mg/dL (7-17); Calcium 9.9 mg/dL (8.4-10.2); Carbon Dioxide 25 mmol/L (22-30); Chloride 106 mmol/L (98-107); Glucose 78 mg/dL (74-99); Sodium 139 mmol/L (137-145)
[2018-04-25 16:09] LABS: Amphetamine Screen,Urine Not Detected (NotDetected); Barbiturate Screen,Urine Not Detected (NotDetected); Benzodiazepines Screen,Urine Not Detected (NotDetected); Cocaine Screen,Urine Not Detected (NotDetected); Methadone Screen, Urine Not Detected (NotDetected); Opiate Screen,Urine Detected (NotDetected); Oxycodone Screen, Urine Not Detected (NotDetected); Phencyclidine Screen,Urine Not Detected (NotDetected); Tricyclic Antidepressant,Urine Detected (NotDetected); Urn Cannabinoid Scrn Detected (NotDetected)
[2018-04-25 16:10] LABS: Appearance,Urine Clear (Clear); Bacteria,Urine Rare /hpf; Bilirubin,Urine Negative (Negative); Blood,Urine Trace (Negative); Color,Urine Yellow; Glucose,Urine (UA) Negative (Negative); Ketones,Urine Negative (Negative); Leukocyte Esterase,Urine Negative (Negative); Mucus,Urine Few /hpf; Nitrite,Urine Negative (Negative); Protein,Urine Negative (Negative); RBC,Urine 3 /hpf (0-5); Squamous Epithelial Cell,Urine 2 /hpf (0-4); Urobilinogen,Urine <2.0 mg/dL (<2.0); WBC,Urine 2 /hpf (0-5)
[2018-04-25] MEDS ORDERED: ACETAMINOPHEN TAB 325 MG TAB PO PRN (18:08)
[2018-04-25] MEDS ORDERED: MAG HYDROX/AL HYDROX/SIMETH 30 ML CUP PO PRN (18:08)
[2018-04-25] MEDS ORDERED: ZIPRASIDONE 20 MG VIAL IM PRN (18:08)
[2018-04-25] MEDS ORDERED: IBUPROFEN 600 MG TAB PO PRN (18:12)
[2018-04-25] MEDS: MELATONIN 5 MG TABLET PO SCH (20:58)
[2018-04-25] MEDS: LIDOCAINE VISCOUS 2% 15 ML CUP MUCOUS MEM SCH (20:58)
[2018-04-25] MEDS: GABAPENTIN 100 MG CAP PO SCH (20:59)
[2018-04-25] MEDS ORDERED: NON-FORMULARY DRUG (Soy Isofla/Blk Cohosh/Mag Bark [Estroven 155 Mg Capsule] 155 MG) PO SCH (21:00)
[2018-04-25] MEDS ORDERED: NON-FORMULARY DRUG (Omega-3 Fatty Acids/Fish Oil [Fish Oil 1,000 Mg Softgel] 2 CAP) PO SCH (21:00)
[2018-04-25] MEDS ORDERED: traZODone HCL 50 MG TAB PO SCH (21:00)
[2018-04-26] MEDS: PANTOPRAZOLE 40 MG TABLET PO SCH (07:56)
[2018-04-26] MEDS: LEVOTHYROXINE 50 MCG TAB PO SCH (07:56)
[2018-04-26] MEDS: ASPIRIN 81 MG PO SCH (07:56)
[2018-04-26] MEDS: GABAPENTIN 100 MG CAP PO SCH ×3 (07:57→20:38)
[2018-04-26] MEDS: LORATADINE 10 MG TAB PO SCH (07:57)
[2018-04-26] MEDS: NICOTINE 14MG/24HR PATCH TRANSDERM SCH (07:57)
[2018-04-26] MEDS: MULTIVITAMINS, THERA 1 EACH TAB PO SCH (07:57)
[2018-04-26] MEDS: VITAMIN E (DL,TOCOPHERYL ACET) 400 UNIT CAP PO SCH (07:57)
[2018-04-26] MEDS: LIDOCAINE VISCOUS 2% 15 ML CUP MUCOUS MEM SCH ×3 (08:00→22:54)
[2018-04-26] MEDS ORDERED: NON-FORMULARY DRUG (Biotin [Biotin] 5 MG) PO SCH (09:00)
[2018-04-26] MEDS ORDERED: EVENING PRIMROSE OIL 500 MG PO SCH (09:00)
[2018-04-26 09:27] LABS: Albumin 4.1 g/dL (3.5-5.0); Bilirubin, Delta 0.4 mg/dL (0.0-0.2); Calcium 9.6 mg/dL (8.4-10.2); Potassium 4.7 mmol/L (3.5-5.1); Total Bilirubin 0.4 mg/dL (0.2-1.3); Total Protein 7.1 g/dL (6.3-8.2)
[2018-04-26] MEDS: LORazepam 1 MG TAB PO PRN ×2 (14:16→21:57)
[2018-04-26] MEDS ORDERED: IPRATROPIUM 0.5 MG/2.5 ML NEBU INHALATION PRN (15:52)
[2018-04-26] MEDS ORDERED: ALBUTEROL INHALER 60 PUFF/8 GM INHALER INHALATION PRN (15:58)
[2018-04-26] MEDS ORDERED: ACETAMINOPHEN TAB 325 MG TAB PO PRN (16:01)
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
--- NOTE | 2018-04-26 17:31 | P.CONS ---
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 she saw her PCP last week and she made these referrals on this coming May and that she has all the details about her appointments in her phone including timing and dates. she intends to f/u with her appointment as she is telling me. she is currently smoke about 2 PPD, she does not intend to quit , risks benefit and alternative are explained and she agree to nicotine patch currently Past Medical History Past Medical History: Chest Pain / Angina, COPD, GERD/Reflux, Hyperlipidemia, Hypertension, Seizure Disorder, Thyroid Disorder Additional Past Medical History / Comment(s): Chronic back pain, , brain lesions negative for ms always, constipation, hypothyroidism in the past and off medications, spondylosis, menopause, seizure yesterday per patient absent seizure couple times a day, gastroparesis normally blood pressure is 70/30, antibiotic within last 30 days due to ecoli in urine History of Any Multi-Drug Resistant Organisms: MRSA Year Discovered:: 2011 MDRO Source:: urine Past Surgical History: Back Surgery, Section, Hysterectomy, Orthopedic Surgery, Tubal Ligation Additional Past Surgical History / Comment(s): knee, wrist, sarcodisis, vitamin d deficiency, neck surg Past Psychological History: Anxiety, Bipolar, Panic Disorder, PTSD, Schizophrenia Smoking Status: Current every day smoker Past Alcohol Use History: None Reported Past Drug Use History: Marijuana - Past Family History Father Family Medical History: No Reported History Additional Family Medical History / Comment(s): Patient states her father in his 20s as he was murdered. Mother Additional Family Medical History / Comment(s): Mother is alive at age 63 and suffers from Alzheimer's dementia and other "multiple problems." Sister(s) Additional Family Medical History / Comment(s): Patient had 2 sisters. One sister shot and killed herself. Patient has 3 brothers with no major medical problems. Medications and Allergies Home Medications Medication Instructions Recorded Confirmed Type Aspirin 81 mg PO DAILY 12/13/17 04/25/18 History Biotin 5 mg PO DAILY 12/13/17 04/25/18 History Multivitamins, Thera [Multivitamin 1 tab PO DAILY 12/13/17 04/25/18 History (formulary)] Eldridge-3 Fatty Acids/Fish Oil [Fish 2 cap PO BID 12/13/17 04/25/18 History Oil 1,000 mg Softgel] Vitamin E 100 unit PO DAILY 12/13/17 04/25/18 History traZODone HCL 150 mg PO HS 12/13/17 04/25/18 History Loratadine [Claritin] 10 mg PO DAILY 01/10/18 04/25/18 History Gabapentin [Neurontin] 100 mg PO TID 04/15/18 04/25/18 History Melatonin 5 mg PO HS 04/15/18 04/25/18 History Cyclobenzaprine [Flexeril] 10 mg PO TID PRN 04/19/18 04/25/18 History Levothyroxine Sodium [Synthroid] 50 mcg PO DAILY 04/19/18 04/25/18 History Pantoprazole Sodium [Protonix] 40 mg PO DAILY@0600 04/19/18 04/25/18 History Evening [place] Oil 500 mg PO DAILY 04/25/18 04/25/18 History Ibuprofen [Motrin] 600 mg PO Q8HR PRN 04/25/18 04/25/18 History Lidocaine Viscous 2% [Xylocaine 5 ml MUCOUS MEM TID 04/25/18 04/25/18 History Viscous] Soy Isofla/Blk [place]/Mag Bark 155 mg PO HS 04/25/18 04/25/18 History [Estroven 155 mg Capsule] Allergies Allergy/AdvReac Type Severity Reaction Status Date / Time adhesive Allergy Unknown Verified 04/25/18 14:10 Corticosteroids Allergy Unknown Verified 04/25/18 14:10 (Glucocorticoids) fluoxetine HCl [From Prozac] Allergy Unknown Verified 04/25/18 14:10 latex Allergy Rash/Hives Verified 04/25/18 14:10 olanzapine [From Zyprexa] Allergy Unknown Verified 04/25/18 14:10 prednisone Allergy Unknown Verified 04/25/18 14:10 venlafaxine Allergy Chest Pain Verified 04/25/18 14:10 venom-honey bee Allergy Anaphylaxis Verified 04/25/18 14:10 [bee venom (honey bee)] Physical Exam Vitals: Vital Signs Temp Pulse Pulse Resp BP BP Pulse Ox 04/26/18 06:36 98.1 F 66 18 108/55 04/25/18 18:15 98.0 F 81 18 124/88 04/25/18 17:49 97.6 F 67 18 103/75 95 GENERAL: The patient is alert and oriented x3, not in any acute distress. Well developed, well nourished. HEENT: Pupils are round and equally reacting to light. EOMI. No scleral icterus. No conjunctival pallor. Normocephalic, atraumatic. No pharyngeal erythema. No thyromegaly. CARDIOVASCULAR: S1 and S2 present. No murmurs, rubs, or gallops. PULMONARY: Chest is clear to auscultation, no wheezing or crackles. ABDOMEN: Soft, nontender, nondistended, normoactive bowel sounds. No palpable organomegaly. MUSCULOSKELETAL: No joint swelling or deformity. EXTREMITIES: No cyanosis, clubbing, or pedal edema. NEUROLOGICAL: Gross neurological examination did not reveal any focal deficits. SKIN: No rashes. Results CBC & Chem 7: 04/26/18 08:43 Labs: Abnormal Lab Results - Last 24 Hours (Table) 04/26/18 Range/Units 08:43 Creatinine 1.05 H (0.52-1.04) mg/dL Glucose 163 H (74-99) mg/dL Delta Bilirubin 0.4 H (0.0-0.2) mg/dL Cholesterol 231 H (<200) mg/dL LDL Cholesterol, Calc 147 H (0-99) mg/dL HDL Cholesterol 62 H (40-60) mg/dL Assessment and Plan Assessment: COPD not in acute exacerbation , pt states she is on spiriva and albuterol inh migrain headache on fiorocet as per pt h/o pseudo-seizures chronic left shoulder pain chronic nasal congestion current smoker Schizoaffective disorder depression and suicidal ideation Marijuana abuse PTSD/anxiety Plan: continue with the same treatment , continue with symptomatic treatment , resume home medication ,continue with breathing treatment and pain managment . pt needs to follow up with her pcp in one week after discharge and other consultants as mentioned by pt. GI and DVT prophylaxis: low risk so no need for heparin , pt is mobile ,managment of psych illnesses as per psych team thank you for consulting us.
[2018-04-26] MEDS: traZODone HCL 50 MG TAB PO SCH (20:38)
[2018-04-26] MEDS: MELATONIN 5 MG TABLET PO SCH (20:38)
[2018-04-26] MEDS: MIRTAZAPINE 15 MG TAB PO SCH (20:38)
[2018-04-26] MEDS: ATORVASTATIN 10 MG TAB PO SCH (20:38)
[2018-04-26] MEDS: BUTALB/APAP/CAFF 50-325-40MG TAB PO PRN (20:45)
[2018-04-26] MEDS ORDERED: chlorproMAZINE 25 MG TAB PO SCH (21:00)
[2018-04-26 21:13] LABS: Hemoglobin A1C 5.6 % (4.0-6.0)
[2018-04-26] MEDS: MAGNESIUM HYDROXIDE 2,400 MG/10 ML CUP PO PRN (21:55)
[2018-04-27] MEDS: BUTALB/APAP/CAFF 50-325-40MG TAB PO PRN ×2 (06:37→17:59)
[2018-04-27] MEDS: PANTOPRAZOLE 40 MG TABLET PO SCH (06:37)
[2018-04-27] MEDS: LEVOTHYROXINE 50 MCG TAB PO SCH (06:37)
[2018-04-27] MEDS: ASPIRIN 81 MG PO SCH (08:29)
[2018-04-27] MEDS: LORATADINE 10 MG TAB PO SCH (08:29)
[2018-04-27] MEDS: MULTIVITAMINS, THERA 1 EACH TAB PO SCH (08:29)
[2018-04-27] MEDS: GABAPENTIN 100 MG CAP PO SCH ×2 (08:29→16:15)
[2018-04-27] MEDS: VITAMIN E (DL,TOCOPHERYL ACET) 400 UNIT CAP PO SCH (08:30)
[2018-04-27] MEDS: NICOTINE 14MG/24HR PATCH TRANSDERM SCH (08:31)
[2018-04-27] MEDS: CYCLOBENZAPRINE 10 MG TAB PO PRN ×2 (08:34→17:59)
[2018-04-27] MEDS: LIDOCAINE VISCOUS 2% 15 ML CUP MUCOUS MEM SCH ×4 (09:03→21:02)
[2018-04-27] MEDS: LORazepam 1 MG TAB PO PRN ×2 (11:11→17:59)
--- NOTE | 2018-04-27 17:44 | P.PN ---
Progress Note - Text Progress Note Date: 04/27/18 IDENTIFICATION DATA: 48-year-old female admitted through emergency department with worsening depression and suicidal ideations. She also has history of marijuana abuse. She has tendency to seek medications for pain and anxiety. She has chronic psychiatric treatment history and claims to have been treated with various psychiatric medications. INTERVAL HISTORY: She states she has been sleeping most of the today due to constant pain. She sasy she is unable to move when she has pain. Her visited her yesterday and she states he is still looking for a place to live. She reports good appetite. She reports being compliant with medications and denies side effects. MENTAL STATUS EXAMINATION: She appears her stated age in fair grooming and hygiene.. No abnormal movements noted. Her mood is reported as fine and affect appropriate. Her speech is normal rate tone and volume. thought process is persevarative and talks about pain. She denies current auditory or visual hallucinations. She denies paranoia She denies current suicidal or homicidal ideations. She is alert and oriented 4. insight and judgment are IMPROVING ASSESSMENT AND PLAN: Will increase the dose of neurontin to 300mg po tid for mood stabilization Will increase the dose of thorazine to 50mg po qpm Monitor for progress Continue safety precautions
[2018-04-27] MEDS: ATORVASTATIN 10 MG TAB PO SCH (20:59)
[2018-04-27] MEDS: MIRTAZAPINE 15 MG TAB PO SCH (20:59)
[2018-04-27] MEDS: MELATONIN 5 MG TABLET PO SCH (20:59)
[2018-04-27] MEDS: traZODone HCL 50 MG TAB PO SCH (21:00)
[2018-04-27] MEDS: GABAPENTIN 300 MG CAP PO SCH (21:00)
[2018-04-27] MEDS: chlorproMAZINE 25 MG TAB PO SCH ×2 (21:01→21:16)
[2018-04-27] MEDS: MAGNESIUM HYDROXIDE 2,400 MG/10 ML CUP PO PRN (21:10)
[2018-04-28 04:15] VITALS: TEMP 97.6
[2018-04-28] MEDS: PANTOPRAZOLE 40 MG TABLET PO SCH (05:22)
[2018-04-28] MEDS: LEVOTHYROXINE 50 MCG TAB PO SCH (05:22)
[2018-04-28] MEDS: BUTALB/APAP/CAFF 50-325-40MG TAB PO PRN (05:23)
[2018-04-28 08:35] VITALS: BP 125/55; PULSE 99; RESP 18
[2018-04-28] MEDS: VITAMIN E (DL,TOCOPHERYL ACET) 400 UNIT CAP PO SCH (08:36)
[2018-04-28] MEDS: LIDOCAINE VISCOUS 2% 15 ML CUP MUCOUS MEM SCH (08:36)
[2018-04-28] MEDS: ASPIRIN 81 MG PO SCH (08:36)
[2018-04-28] MEDS: GABAPENTIN 300 MG CAP PO SCH (08:36)
[2018-04-28] MEDS: LORATADINE 10 MG TAB PO SCH (08:36)
[2018-04-28] MEDS: MULTIVITAMINS, THERA 1 EACH TAB PO SCH (08:36)
[2018-04-28] MEDS: NICOTINE 14MG/24HR PATCH TRANSDERM SCH (08:36)
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
== END 2018-04-28 12:30 | disposition home or self-care (01) | DRG 885 ==
LOC: EC 13:13 → 3MHU 17:51
PROVIDERS: ADMIT Psychiatry & Neurology Psychiatry; ATTEND Psychiatry & Neurology Psychiatry
DX: F31.0 Bipolar disorder, current episode hypomanic (principal); R45.851 Suicidal ideations; G40.89 Other seizures; E78.5 Hyperlipidemia, unspecified; E86.0 Dehydration; F12.10 Cannabis abuse, uncomplicated; F17.210 Nicotine dependence, cigarettes, uncomplicated; F25.9 Schizoaffective disorder, unspecified; F41.0 Panic disorder [episodic paroxysmal anxiety]; F43.10 Post-traumatic stress disorder, unspecified; G89.29 Other chronic pain; I10 Essential (primary) hypertension; J44.9 Chronic obstructive pulmonary disease, unspecified; K21.9 Gastro-esophageal reflux disease without esophagitis; K31.84 Gastroparesis; E55.9 Vitamin D deficiency, unspecified; G43.909 Migraine, unspecified, not intractable, without status migrainosus; M19.90 Unspecified osteoarthritis, unspecified site; M25.512 Pain in left shoulder; M54.9 Dorsalgia, unspecified; R09.81 Nasal congestion; E03.9 Hypothyroidism, unspecified; M47.9 Spondylosis, unspecified; D86.9 Sarcoidosis, unspecified; Z79.82 Long term (current) use of aspirin; Z79.899 Other long term (current) drug therapy; Z59.0 Homelessness; Z91.5 Personal history of self-harm; Z91.030 Bee allergy status; Z91.040 Latex allergy status; Z88.8 Allergy status to other drugs, medicaments and biological substances; Z91.048 Other nonmedicinal substance allergy status; Z86.14 Personal history of Methicillin resistant Staphylococcus aureus infection; Z90.710 Acquired absence of both cervix and uterus; Z98.51 Tubal ligation status; Z82.0 Family history of epilepsy and other diseases of the nervous system
CPT/HCPCS: 36415; 80048; 80053; 80061; 80306; 81001; 82075; 82248; 83036; 84443; 93005; 94640; 99285

== ENCOUNTER → 2018-05-03 | Outpatient (CLI) | payer MEDICARE ==
--- NOTE | 2018-05-03 08:36 | MR ---
EXAMINATION TYPE: MR shoulder LT wo con DATE OF EXAM: 05/03/2018 8:28 AM COMPARISON: NONE HISTORY: Lt shoulder pain TECHNIQUE: Multiplanar, multisequence imaging of the left shoulder is performed without contrast. FINDINGS: There is no evidence of an os acromiale. There are mild inflammatory and hypertrophic lubin es in the left AC joint. The acromion is neutral. The pseudocystic change in the humeral head, an indirect sign of impingement. There is no evidence of rotator cuff tear. The cartilaginous glenoid labrum appears intact. The biceps tendon is normally situated within the biceps tendon groove and inserts normally upon the biceps anchor. IMPRESSION: 1. NO EVIDENCE OF A ROTATOR CUFF TEAR. 2. PSEUDOCYSTIC CHANGE IN THE HUMERAL HEAD, AN INDIRECT SIGN OF IMPINGEMENT. 3. MILD INFLAMMATORY HYPERTROPHIC CHANGES, LEFT AC JOINT.
== END | disposition home or self-care (01) ==
LOC: RADMRIMAIN 07:52
PROVIDERS: ATTEND Family Medicine
DX: M89.312 Hypertrophy of bone, left shoulder (principal); M25.812 Other specified joint disorders, left shoulder; G89.29 Other chronic pain; M25.512 Pain in left shoulder

== ENCOUNTER → 2018-05-23 | Outpatient (CLI) | payer MEDICARE ==
--- NOTE | 2018-05-23 15:03 | US ---
EXAMINATION TYPE: US carotid duplex BILAT DATE OF EXAM: 05/23/2018 COMPARISON: NONE CLINICAL HISTORY: R55 Recurrent Syncope. Syncope EXAM MEASUREMENTS: RIGHT: Peak Systolic Velocity (PSV) cm/sec ----- Right CCA: 85.3 ----- Right ICA: 74.7 ----- Right ECA: 97.4 ICA/CCA ratio: 0.9 RIGHT: End Diastole cm/sec ----- Right CCA: 34.7 ----- Right ICA: 34.5 ----- Right ECA: 32.5 LEFT: Peak Systolic Velocity (PSV) cm/sec ----- Left CCA: 86.4 ----- Left ICA: 86.4 ----- Left ECA: 86.4 ICA/CCA ratio: 1.0 LEFT: End Diastole cm/sec ----- Left CCA: 39.1 ----- Left ICA: 43.5 ----- Left ECA: 24.8 VERTEBRALS (direction of flow): Right Vertebral: Antegrade Left Vertebral: Antegrade Rhythm: Normal No significant stenosis seen Intimal thickening is present. IMPRESSION: Mild intimal thickening without significant flow-limiting stenosis. Criteria for Assigning % of Stenosis / Diameter reduction (Estimation based on the indirect measurements of the internal carotid artery velocities (ICA PSV). 1. Normal (no stenosis)=ICA PSV < 125 cm/s: ratio < 2.0: ICA EDV<40 cm/s. 2. Less than 50% stenosis=ICA PSV < 125 cm/s: ratio < 2.0: ICA EDV<40 cm/s. 3. 50 to 69% stenosis=ICA PSV of 125 to 230 cm/s: ration 2.0 ? 4.0: ICA EDV 40-100 cm/s. 4. Greater than 70% stenosis to near occlusion= ICA PSV > 230 cm/s: ratio > 4.0: ICA EDV > 100 cm/s. 5. Near occlusion= ICA PSV velocities may be low or undetectable: variable ratio and ICA EDV. 6. Total occlusion=unable to detect flow.
== END ==
LOC: RADUSWWP 14:19
PROVIDERS: ATTEND Psychiatry & Neurology Neurology
DX: I70.90 Unspecified atherosclerosis (principal)
CPT/HCPCS: 93880

== ENCOUNTER 2018-06-04 23:50 | Emergency (ER) | payer MEDICARE ==
[2018-06-05] MEDS ORDERED: SODIUM CHLORIDE 0.9% 1,000 ML IV STA (00:20)
[2018-06-05 00:38] LABS: Basophils % (A) 1 %; Eosinophils # (A) 0.1 k/uL (0-0.7); Eosinophils % (A) 1 %; HCT 39.7 % (34.0-46.0); HGB 13.1 gm/dL (11.4-16.0); Lymphocytes # (A) 2.5 k/uL (1.0-4.8); Lymphocytes % (A) 38 %; MCH 29.3 pg (25.0-35.0); MCHC 33.2 g/dL (31.0-37.0); MCV 88.3 fL (80.0-100.0); Mean Platelet Volume 7.3; Monocytes # (A) 0.4 k/uL (0-1.0); Monocytes % (A) 6 %; Neutrophils # (A) 3.5 k/uL (1.3-7.7); Neutrophils % (A) 51 %; Platelet Count 262 k/uL (150-450); RBC 4.49 m/uL (3.80-5.40); RDW 13.9 % (11.5-15.5); WBC 6.7 k/uL (3.8-10.6)
[2018-06-05 00:53] LABS: Albumin 4.4 g/dL (3.5-5.0); Alcohol <10 mg/dL; Anion Gap 10 mmol/L; Calcium 9.5 mg/dL (8.4-10.2); Carbon Dioxide 25 mmol/L (22-30); Chloride 104 mmol/L (98-107); Glucose 138 mg/dL (74-99); Sodium 139 mmol/L (137-145); Total Bilirubin 0.5 mg/dL (0.2-1.3); Total Protein 7.6 g/dL (6.3-8.2)
[2018-06-05 00:54] LABS: ALT 30 U/L (9-52); AST 28 U/L (14-36); Alkaline Phosphatase 70 U/L (38-126); Blood Urea Nitrogen 14 mg/dL (7-17); Potassium 3.8 mmol/L (3.5-5.1)
[2018-06-05 01:29] LABS: Amphetamine Screen,Urine Not Detected (NotDetected); Barbiturate Screen,Urine Not Detected (NotDetected); Benzodiazepines Screen,Urine Not Detected (NotDetected); Cocaine Screen,Urine Not Detected (NotDetected); Methadone Screen, Urine Not Detected (NotDetected); Opiate Screen,Urine Not Detected (NotDetected); Oxycodone Screen, Urine Not Detected (NotDetected); Phencyclidine Screen,Urine Not Detected (NotDetected); Tricyclic Antidepressant,Urine Not Detected (NotDetected); Urn Cannabinoid Scrn Detected (NotDetected)
[2018-06-05 01:31] LABS: Appearance,Urine Cloudy (Clear); Bacteria,Urine Occasional /hpf; Bilirubin,Urine Negative (Negative); Blood,Urine Small (Negative); Color,Urine Yellow; Glucose,Urine (UA) Negative (Negative); Hyaline Casts,Urine 12 /lpf (0-2); Ketones,Urine Negative (Negative); Leukocyte Esterase,Urine Large (Negative); Mucus,Urine Rare /hpf; Nitrite,Urine Positive (Negative); Protein,Urine Negative (Negative); RBC,Urine 2 /hpf (0-5); Specific Gravity,Urine 1.007 (1.001-1.035); Squamous Epithelial Cell,Urine 3 /hpf (0-4); Urobilinogen,Urine <2.0 mg/dL (<2.0); WBC,Urine >182 /hpf (0-5)
[2018-06-05] MEDS ORDERED: CEPHALEXIN 500MG STARTER PACK 4 CAP BTL PO STA (01:51)
--- NOTE | 2018-06-05 01:51 | ED ---
Seizure HPI - General Chief Complaint: Seizure Stated Complaint: Seizure Time Seen by Provider: 06/05/18 00:06 Source: patient Mode of arrival: wheelchair Limitations: no limitations - History of Present Illness Initial Comments: 48-year-old female patient with past medical history significant for seizures presents to the emergency department today reporting an increase in seizure activity. Patient states she has been having 4-5 petit mal seizures over the last few days. Patient states that this is an increase in her usual number of seizures. States she's been having them for the last 2 years. States she was taken off her medication by her neurologist quite some time ago. Patient denies any head injuries. She denies any recent illness. Denies any alcohol or drug use. Patient denies any recent rash, fever, chills, shortness breath, chest pain, abdominal pain, nausea, vomiting, diarrhea, constipation, numbness, tingling, dizziness, weakness, hematuria, dysuria, urinary urgency, urinary frequency, headache, visual changes, or any other complaints. - Related Data Home Medications Medication Instructions Recorded Confirmed Multivitamins, Thera [Multivitamin 1 tab PO DAILY 12/13/17 05/26/18 (formulary)] Melatonin 5 mg PO HS 04/15/18 05/26/18 Levothyroxine Sodium [Synthroid] 50 mcg PO DAILY 04/19/18 05/26/18 Pantoprazole Sodium [Protonix] 40 mg PO DAILY 04/19/18 05/26/18 Evening [place] Oil 1,000 mg PO BID 04/25/18 05/26/18 Albuterol Nebulizer 1 dose INHALATION DIRECTED 05/26/18 Aspirin [Adult Low Dose Aspirin EC] 81 mg PO DAILY 05/26/18 05/26/18 Biotin 1 tab PO DAILY 05/26/18 05/26/18 Fluticasone/Salmeterol [Advair 1 inhalation PO BID 05/26/18 05/26/18 500-50 Diskus] Glycolax 1 tab PO DAILY PRN 05/26/18 Loratadine 10 mg PO DAILY 05/26/18 05/26/18 [place]-3 Fatty Acids/Fish Oil [Fish 2 each PO BID 05/26/18 05/26/18 Oil 1,000 mg Softgel] Soy Isofla/Blk Cohosh/Mag Bark 155 mg PO HS 05/26/18 05/26/18 [Estroven 155 mg Capsule] Tiotropium 18 Mcg/Puff [Spiriva] 1 puff INHALATION DAILY 05/26/18 05/26/18 chlorproMAZINE [Thorazine] 25 mg PO HS 05/26/18 05/26/18 diphenhydrAMINE [Benadryl] 25 mg PO BID 05/26/18 05/26/18 traZODone HCL 150 mg PO HS 05/26/18 05/26/18 Previous Rx's Medication Instructions Recorded Atorvastatin [Lipitor] 10 mg PO HS 30 Days #30 tab 04/28/18 Gabapentin [Neurontin] 300 mg PO TID 30 Days #90 cap 04/28/18 Cephalexin [Keflex] 500 mg PO Q6H #28 cap 06/05/18 Allergies Allergy/AdvReac Type Severity Reaction Status Date / Time ketorolac [From Toradol] Allergy Unknown Rash/Hives, Verified 06/04/18 23:59 Itching adhesive Allergy Unknown Verified 06/04/18 23:59 Corticosteroids Allergy Unknown Verified 06/04/18 23:59 (Glucocorticoids) fluoxetine HCl [From Prozac] Allergy Unknown Verified 06/04/18 23:59 latex Allergy Rash/Hives Verified 06/04/18 23:59 olanzapine [From Zyprexa] Allergy Unknown Verified 06/04/18 23:59 prednisone Allergy Unknown Verified 06/04/18 23:59 venlafaxine Allergy Chest Pain Verified 06/04/18 23:59 venom-honey bee Allergy Anaphylaxis Verified 06/04/18 23:59 [bee venom (honey bee)] Review of Systems ROS Statement: Those systems with pertinent positive or pertinent negative responses have been documented in the HPI. ROS Other: All systems not noted in ROS Statement are negative. Past Medical History Past Medical History: Chest Pain / Angina, COPD, GERD/Reflux, Hyperlipidemia, Hypertension, Seizure Disorder, Thyroid Disorder Additional Past Medical History / Comment(s): Chronic back pain, , brain lesions negative for ms always, constipation, hypothyroidism in the past and off medications, spondylosis, menopause, seizure yesterday per patient absent seizure couple times a day, gastroparesis normally blood pressure is 70/30, antibiotic within last 30 days due to ecoli in urine History of Any Multi-Drug Resistant Organisms: MRSA Date of last positivie culture/infection: 2011 MDRO Source:: urine Past Surgical History: Back Surgery, Section, Hysterectomy, Orthopedic Surgery, Tubal Ligation Additional Past Surgical History / Comment(s): knee, wrist, sarcodisis, vitamin d deficiency, neck surg Past Psychological History: Anxiety, Bipolar, Panic Disorder, PTSD, Schizophrenia Smoking Status: Current every day smoker Past Alcohol Use History: None Reported Past Drug Use History: Marijuana - Past Family History Father Family Medical History: No Reported History Additional Family Medical History / Comment(s): Patient states her father in his 20s as he was murdered. Mother Additional Family Medical History / Comment(s): Mother is alive at age 63 and suffers from Alzheimer's dementia and other "multiple problems." Sister(s) Additional Family Medical History / Comment(s): Patient had 2 sisters. One sister shot and killed herself. Patient has 3 brothers with no major medical problems. General Exam Limitations: no limitations General appearance: alert, in no apparent distress, other (This is a well- developed, well-nourished adult female patient in no acute distress. Vital signs upon presentation are temperature 98.1F, pulse 109, respirations 17, blood pressure 120/80, pulse ox 98% on room air.) Eye exam: Present: normal appearance, PERRL, EOMI. Absent: scleral icterus, conjunctival injection, periorbital swelling ENT exam: Present: normal exam, normal oropharynx, mucous membranes moist Respiratory exam: Present: normal lung sounds bilaterally. Absent: respiratory distress, wheezes, rales, rhonchi, stridor Cardiovascular Exam: Present: regular rate, normal rhythm, normal heart sounds. Absent: systolic murmur, diastolic murmur, rubs, gallop, clicks GI/Abdominal exam: Present: soft, normal bowel sounds. Absent: distended, tenderness, guarding, rebound, rigid Neurological exam: Present: alert, oriented X3, CN II-XII intact, other ( Strength in all 4 extremities is 5/5.) Psychiatric exam: Present: normal affect, normal mood Skin exam: Present: warm, dry, intact, normal color. Absent: rash Course Vital Signs 06/04/18 23:56 Temperature 98.1 F Pulse Rate 109 H Respiratory 17 Rate Blood Pressure 128/80 O2 Sat by Pulse 98 Oximetry Medical Decision Making - Medical Decision Making 48-year-old female patient presented to the emergency department today reporting increase in number of seizures. Physical examination is unremarkable. She is neurologically intact with no focal deficits. Labs reviewed and are relatively unremarkable. Patient does have evidence of urinary tract infection. This has been sent for culture. We'll start her on Keflex. She is instructed to follow up with her neurologist as soon as possible for recheck. She does have an appointment coming up for a seizure evaluation at [facility], she is urged to keep this appointment. She is advised not to drive until cleared by her neurologist, she states that she is oriented 6 month restriction. Return parameters were discussed in detail. She verbalizes understanding and agrees with this plan. - Lab Data Result diagrams: 06/05/18 00:13 06/05/18 00:13 Lab Results 06/05/18 06/05/18 06/05/18 Range/Units 00:13 00:13 00:52 WBC 6.7 (3.8-10.6) k/uL RBC 4.49 (3.80-5.40) m/uL Hgb 13.1 (11.4-16.0) gm/dL Hct 39.7 (34.0-46.0) % MCV 88.3 (80.0-100.0) fL MCH 29.3 (25.0-35.0) pg MCHC 33.2 (31.0-37.0) g/dL RDW 13.9 (11.5-15.5) % Plt Count 262 (150-450) k/uL Neutrophils % 51 % Lymphocytes % 38 % Monocytes % 6 % Eosinophils % 1 % Basophils % 1 % Neutrophils # 3.5 (1.3-7.7) k/uL Lymphocytes # 2.5 (1.0-4.8) k/uL Monocytes # 0.4 (0-1.0) k/uL Eosinophils # 0.1 (0-0.7) k/uL Basophils # 0.0 (0-0.2) k/uL Sodium 139 (137-145) mmol/L Potassium 3.8 (3.5-5.1) mmol/L Chloride 104 (98-107) mmol/L Carbon Dioxide 25 (22-30) mmol/L Anion Gap 10 mmol/L BUN 14 (7-17) mg/dL Creatinine 1.00 (0.52-1.04) mg/dL Est GFR (CKD-EPI)AfAm 78 (>60 ml/min/1.73 sqM) Est GFR (CKD-EPI)NonAf 68 (>60 ml/min/1.73 sqM) Glucose 138 H (74-99) mg/dL Calcium 9.5 (8.4-10.2) mg/dL Total Bilirubin 0.5 (0.2-1.3) mg/dL AST 28 (14-36) U/L ALT 30 (9-52) U/L Alkaline Phosphatase 70 (38-126) U/L Total Protein 7.6 (6.3-8.2) g/dL Albumin 4.4 (3.5-5.0) g/dL Urine Color Yellow Urine Appearance Cloudy H (Clear) Urine pH 6.0 (5.0-8.0) Ur Specific [place] 1.007 (1.001-1.035) Urine Protein Negative (Negative) Urine Glucose (UA) Negative (Negative) Urine Ketones Negative (Negative) Urine Blood Small H (Negative) Urine Nitrite Positive H (Negative) Urine Bilirubin Negative (Negative) Urine Urobilinogen <2.0 (<2.0) mg/dL Ur Leukocyte Esterase Large H (Negative) Urine RBC 2 (0-5) /hpf Urine WBC >182 H (0-5) /hpf Ur Squamous Epith Cells 3 (0-4) /hpf Urine Bacteria Occasional H (None) /hpf Hyaline Casts 12 H (0-2) /lpf Urine Mucus Rare H (None) /hpf Urine Opiates Screen Not Detected (NotDetected) Ur Oxycodone Screen Not Detected (NotDetected) Urine Methadone Screen Not Detected (NotDetected) Ur Propoxyphene Screen Not Detected (NotDetected) Ur Barbiturates Screen Not Detected (NotDetected) U Tricyclic Antidepress Not Detected (NotDetected) Ur Phencyclidine Scrn Not Detected (NotDetected) Ur Amphetamines Screen Not Detected (NotDetected) U Methamphetamines Scrn Not Detected (NotDetected) U Benzodiazepines Scrn Not Detected (NotDetected) Urine Cocaine Screen Not Detected (NotDetected) U Marijuana (THC) Screen Detected H (NotDetected) Serum Alcohol <10 mg/dL Disposition Clinical Impression: Seizure, Urinary tract infection Disposition: HOME SELF-CARE Condition: Good Instructions: Urinary Tract Infection in Women (ED), Recurrent Seizures in Adults (ED) Additional Instructions: Increase fluids. Complete antibiotic prescription in full. Follow up with your neurologist and for your appointment at [facility]. Return to the emergency department immediately for any new, worsening, or concerning symptoms. Prescriptions: Cephalexin [Keflex] 500 mg PO Q6H #28 cap Is patient prescribed a controlled substance at d/c from ED?: No Referrals: Sadaf Gan MD [Primary Care Provider] - 1-2 days Time of Disposition: 01:50
[2018-06-05 02:11] VITALS: RESP 18
[2018-06-05 02:12] VITALS: BP 98/64; PULSE 89; TEMP 98.6
== END 2018-06-05 02:18 | disposition home or self-care (01) ==
LOC: EC 23:50
DX: G40.909 Epilepsy, unspecified, not intractable, without status epilepticus (principal); N39.0 Urinary tract infection, site not specified; J44.9 Chronic obstructive pulmonary disease, unspecified; K21.9 Gastro-esophageal reflux disease without esophagitis; E78.5 Hyperlipidemia, unspecified; I10 Essential (primary) hypertension; E03.9 Hypothyroidism, unspecified; F20.9 Schizophrenia, unspecified; F41.0 Panic disorder [episodic paroxysmal anxiety]; F43.10 Post-traumatic stress disorder, unspecified; F31.9 Bipolar disorder, unspecified; F17.200 Nicotine dependence, unspecified, uncomplicated; Z79.82 Long term (current) use of aspirin; Z79.899 Other long term (current) drug therapy; Z79.51 Long term (current) use of inhaled steroids; Z88.6 Allergy status to analgesic agent; Z91.030 Bee allergy status; Z88.8 Allergy status to other drugs, medicaments and biological substances; Z91.040 Latex allergy status; Z91.048 Other nonmedicinal substance allergy status
CPT/HCPCS: 36415; 93005; 80053; 85025; 81001; 80306; 87086; 87077; 87186; 99284; G0480; 80320

== ENCOUNTER 2018-06-26 16:28 | Emergency (ER) | payer MEDICARE ==
[2018-06-26 17:16] VITALS: RESP 18
--- NOTE | 2018-06-26 18:19 | ED ---
General Adult HPI - General Chief complaint: Back Pain/Injury Stated complaint: FALL FROM LADDER Time Seen by Provider: 06/26/18 18:10 Source: patient, RN notes reviewed, old records reviewed Mode of arrival: ambulatory Limitations: no limitations - History of Present Illness Initial comments: patient 48-year-old female presenting to the emergency room today with a chief complaint of a fall that occurred yesterday. She does admit to increased lower back pain after falling from a ladder. She states she was 3 feet in the air and the ladder gave out and she fell down on top of her daughter. She does admit that she's had increased lower back pain since. Denies any head injury or loss conscious. She does admit that she has numbness tingling sensation going down to her toes bilaterally. She states she's had this in the past. Denies any saddle anesthesia. Denies any bowel or bladder incontinence or retention. Patient does admit the pain is worse with movements. Patient denies any complaints or symptoms. Patient denies any recent fever, chills, shortness of breath, chest pain, abdominal pain, nausea or vomiting, headaches or visual changes, or any other complaints. - Related Data Home Medications Medication Instructions Recorded Confirmed Multivitamins, Thera [Multivitamin 1 tab PO DAILY 12/13/17 06/26/18 (formulary)] Melatonin 5 mg PO HS 04/15/18 06/26/18 Levothyroxine Sodium [Synthroid] 50 mcg PO DAILY 04/19/18 06/26/18 Pantoprazole Sodium [Protonix] 40 mg PO DAILY 04/19/18 06/26/18 Evening [place] Oil 1,000 mg PO BID 04/25/18 06/26/18 Aspirin [Adult Low Dose Aspirin EC] 81 mg PO DAILY 05/26/18 06/26/18 Fluticasone/Salmeterol [Advair 1 puff INHALATION RT-BID 05/26/18 06/26/18 500-50 Diskus] Loratadine 10 mg PO DAILY 05/26/18 06/26/18 [place]-3 Fatty Acids/Fish Oil [Fish 2 cap PO BID 05/26/18 06/26/18 Oil 1,000 mg Softgel] Soy Isofla/Blk Cohosh/Mag Bark 155 mg PO HS 05/26/18 06/26/18 [Estroven 155 mg Capsule] Tiotropium 18 Mcg/Puff [Spiriva] 1 puff INHALATION DAILY 05/26/18 06/26/18 chlorproMAZINE [Thorazine] 25 mg PO HS 05/26/18 06/26/18 diphenhydrAMINE [Benadryl] 25 mg PO BID 05/26/18 06/26/18 traZODone HCL 150 mg PO HS 05/26/18 06/26/18 Albuterol Nebulized [Ventolin 2.5 mg INHALATION RT-Q6H PRN 06/26/18 06/26/18 Nebulized] Biotin 300 mcg PO DAILY 06/26/18 06/26/18 Polyethylene Glycol 3350 [Miralax] 17 gm PO DAILY PRN 06/26/18 06/26/18 Previous Rx's Medication Instructions Recorded Atorvastatin [Lipitor] 10 mg PO HS 30 Days #30 tab 04/28/18 Gabapentin [Neurontin] 300 mg PO TID 30 Days #90 cap 04/28/18 Cyclobenzaprine [Flexeril] 10 mg PO TID #15 tab 06/26/18 Allergies Allergy/AdvReac Type Severity Reaction Status Date / Time ketorolac [From Toradol] Allergy Unknown Rash/Hives, Verified 06/26/18 18:11 Itching adhesive Allergy Unknown Verified 06/26/18 18:11 Corticosteroids Allergy Unknown Verified 06/26/18 18:11 (Glucocorticoids) fluoxetine HCl [From Prozac] Allergy Unknown Verified 06/26/18 18:11 latex Allergy Rash/Hives Verified 06/26/18 18:11 olanzapine [From Zyprexa] Allergy Unknown Verified 06/26/18 18:11 prednisone Allergy Unknown Verified 06/26/18 18:11 venlafaxine Allergy Chest Pain Verified 06/26/18 18:11 venom-honey bee Allergy Anaphylaxis Verified 06/26/18 18:11 [bee venom (honey bee)] Review of Systems ROS Statement: Those systems with pertinent positive or pertinent negative responses have been documented in the HPI. ROS Other: All systems not noted in ROS Statement are negative. Past Medical History Past Medical History: Chest Pain / Angina, COPD, GERD/Reflux, Hyperlipidemia, Hypertension, Seizure Disorder, Thyroid Disorder Additional Past Medical History / Comment(s): Chronic back pain, , brain lesions negative for ms always, constipation, hypothyroidism in the past and off medications, spondylosis, menopause, seizure yesterday per patient absent seizure couple times a day, gastroparesis normally blood pressure is 70/30, antibiotic within last 30 days due to ecoli in urine History of Any Multi-Drug Resistant Organisms: MRSA Date of last positivie culture/infection: 2011 MDRO Source:: urine Past Surgical History: Back Surgery, Section, Hysterectomy, Orthopedic Surgery, Tubal Ligation Additional Past Surgical History / Comment(s): knee, wrist, sarcodisis, vitamin d deficiency, neck surg Past Psychological History: Anxiety, Bipolar, Panic Disorder, PTSD, Schizophrenia Smoking Status: Current every day smoker Past Alcohol Use History: None Reported Past Drug Use History: Marijuana - Past Family History Father Family Medical History: No Reported History Additional Family Medical History / Comment(s): Patient states her father in his 20s as he was murdered. Mother Additional Family Medical History / Comment(s): Mother is alive at age 63 and suffers from Alzheimer's dementia and other "multiple problems." Sister(s) Additional Family Medical History / Comment(s): Patient had 2 sisters. One sister shot and killed herself. Patient has 3 brothers with no major medical problems. General Exam - General Exam Comments Initial Comments: General: The patient is awake and alert, in no distress, and does not appear acutely ill. Eye: There is normal conjunctiva bilaterally. No signs of icterus. Neck: The neck is supple, there is no tenderness or JVD. Cardiovascular: There is a regular rate and rhythm. No murmur, rub or gallop is appreciated. Respiratory: Lungs are clear to auscultation, respirations are non-labored, breath sounds are equal. No wheezes, stridor, rales, or rhonchi. Musculoskeletal: Normal ROM. patient has mild tenderness lower thoracic spine T8 down through the lumbar spine. Patient has paravertebral tenderness both on left right sides. Strength 5/5. Sensation intact. Pulses equal bilaterally 2+. Neurological: A&O x 3. CN II-XII intact, There are no obvious motor or sensory deficits. Coordination appears grossly intact. Speech is normal. Skin: Skin is warm and dry and no rashes or lesions are noted. Psychiatric: Cooperative, appropriate mood & affect, normal judgment. Limitations: no limitations Course Vital Signs 06/26/18 17:14 Temperature 97.4 F L Pulse Rate 100 Respiratory 18 Rate Blood Pressure 96/61 O2 Sat by Pulse 98 Oximetry Medical Decision Making - Medical Decision Making 48-year-old presenting for increased low back pain. Admits to bilateral leg numbness and tingling which she states had in the past.Patient has no bowel or bladder incontinence retention. He has no saddle anesthesia.x-rays reviewed negative for any acute fracture dislocation. Results were discussed with the patient. Patient requesting pain shot here in the emergency room. Will be given shot of morphine prior to discharge. Patient has been seen in the emergency room multiple times for similar episodes. She is advised follow-up family doctor. vision advised return if any symptoms increase or worsen or for any other concerns. Disposition Clinical Impression: Acute exacerbation of chronic low back pain Disposition: HOME SELF-CARE Condition: Good Instructions: Chronic Back Pain (ED) Additional Instructions: Please use medication as discussed. Please follow-up with family doctor in the next 2 days of symptoms have not improved. Please return to emergency room if the symptoms increase or worsen or for any other concerns. Prescriptions: Cyclobenzaprine [Flexeril] 10 mg PO TID #15 tab Is patient prescribed a controlled substance at d/c from ED?: No Referrals: Sadaf Gan MD [Primary Care Provider] - 1-2 days Time of Disposition: 19:04
--- NOTE | 2018-06-26 18:32 | XR ---
EXAMINATION TYPE: XR lumbar spine 2 or 3V DATE OF EXAM: 06/26/2018 COMPARISON: 12/13/2017 HISTORY: Pain TECHNIQUE: 3 views FINDINGS: There are rods and screws fusing posteriorly the lumbar spine at L3-4. There is degenerativ e disc space narrowing at L3-4 L4-5. There is no compression fracture. There is laminectomy of L3. Th ere is no focal bony destructive process. Sacroiliac joints appear intact. IMPRESSION: Previous surgery. Spondylotic changes. No acute bony abnormality. No change.
--- NOTE | 2018-06-26 18:33 | XR ---
EXAMINATION TYPE: XR thoracic spine complete DATE OF EXAM: 06/26/2018 COMPARISON: 04/06/2018 HISTORY: Back pain TECHNIQUE: 3 views FINDINGS: Thoracic vertebra have normal spacing and alignment. Posterior elements are intact. There i s no paraspinal mass. There is no compression fracture. IMPRESSION: Normal thoracic spine. No change.
[2018-06-26] MEDS ORDERED: MORPHINE SULFATE 4 MG/ML SYRINGE IM STA (19:02)
[2018-06-26 19:28] VITALS: BP 120/75; PULSE 88; TEMP 97.7
== END 2018-06-26 19:31 | disposition home or self-care (01) ==
LOC: EC 16:28
DX: G89.29 Other chronic pain (principal); M54.5 Low back pain; R20.2 Paresthesia of skin; R20.0 Anesthesia of skin; J44.9 Chronic obstructive pulmonary disease, unspecified; E03.9 Hypothyroidism, unspecified; K21.9 Gastro-esophageal reflux disease without esophagitis; F20.9 Schizophrenia, unspecified; F32.9 Major depressive disorder, single episode, unspecified; F41.9 Anxiety disorder, unspecified; F17.200 Nicotine dependence, unspecified, uncomplicated; Z88.6 Allergy status to analgesic agent; Z88.8 Allergy status to other drugs, medicaments and biological substances; Z91.030 Bee allergy status; Z91.040 Latex allergy status; Z91.048 Other nonmedicinal substance allergy status; Z79.51 Long term (current) use of inhaled steroids; Z79.82 Long term (current) use of aspirin; Z79.899 Other long term (current) drug therapy; Z86.14 Personal history of Methicillin resistant Staphylococcus aureus infection; Z98.890 Other specified postprocedural states; W11.XXXA Fall on and from ladder, initial encounter
CPT/HCPCS: 72072; 72100; 99284; 96372; J2270

== ENCOUNTER 2018-07-19 23:47 | Emergency (ER) | payer MEDICARE ==
[2018-07-20] VITALS: RESP 16; TEMP 98.2
--- NOTE | 2018-07-20 01:34 | ED ---
Psych HPI - General Chief Complaint: Psychiatric Symptoms Stated Complaint: Mental Health Time Seen by Provider: 07/19/18 23:50 Source: patient, RN notes reviewed, old records reviewed Mode of arrival: EMS - History of Present Illness Initial Comments: Patient is a 48-year-old female presents emergency department today via EMS. Mental health complaints. She states that she had an argument with her . She states that she has had increased depression because he does not value her. Patient states that she didn't think attempt superficially cutting her left arm. Patient has had a history of psychiatric illness. - Related Data Home Medications Medication Instructions Recorded Confirmed Multivitamins, Thera [Multivitamin 1 tab PO DAILY 12/13/17 06/26/18 (formulary)] Melatonin 5 mg PO HS 04/15/18 06/26/18 Levothyroxine Sodium [Synthroid] 50 mcg PO DAILY 04/19/18 06/26/18 Pantoprazole Sodium [Protonix] 40 mg PO DAILY 04/19/18 06/26/18 Evening [place] Oil 1,000 mg PO BID 04/25/18 06/26/18 Aspirin [Adult Low Dose Aspirin EC] 81 mg PO DAILY 05/26/18 06/26/18 Fluticasone/Salmeterol [Advair 1 puff INHALATION RT-BID 05/26/18 06/26/18 500-50 Diskus] Loratadine 10 mg PO DAILY 05/26/18 06/26/18 [place]-3 Fatty Acids/Fish Oil [Fish 2 cap PO BID 05/26/18 06/26/18 Oil 1,000 mg Softgel] Soy Isofla/Blk Cohosh/Mag Bark 155 mg PO HS 05/26/18 06/26/18 [Estroven 155 mg Capsule] Tiotropium 18 Mcg/Puff [Spiriva] 1 puff INHALATION DAILY 05/26/18 06/26/18 chlorproMAZINE [Thorazine] 25 mg PO HS 05/26/18 06/26/18 diphenhydrAMINE [Benadryl] 25 mg PO BID 05/26/18 06/26/18 traZODone HCL 150 mg PO HS 05/26/18 06/26/18 Albuterol Nebulized [Ventolin 2.5 mg INHALATION RT-Q6H PRN 06/26/18 06/26/18 Nebulized] Biotin 300 mcg PO DAILY 06/26/18 06/26/18 Polyethylene Glycol 3350 [Miralax] 17 gm PO DAILY PRN 06/26/18 06/26/18 Previous Rx's Medication Instructions Recorded Atorvastatin [Lipitor] 10 mg PO HS 30 Days #30 tab 04/28/18 Gabapentin [Neurontin] 300 mg PO TID 30 Days #90 cap 04/28/18 Cyclobenzaprine [Flexeril] 10 mg PO TID #15 tab 06/26/18 Allergies Allergy/AdvReac Type Severity Reaction Status Date / Time ketorolac [From Toradol] Allergy Unknown Rash/Hives, Verified 06/26/18 18:11 Itching adhesive Allergy Unknown Verified 06/26/18 18:11 Corticosteroids Allergy Unknown Verified 06/26/18 18:11 (Glucocorticoids) fluoxetine HCl [From Prozac] Allergy Unknown Verified 06/26/18 18:11 latex Allergy Rash/Hives Verified 06/26/18 18:11 olanzapine [From Zyprexa] Allergy Unknown Verified 06/26/18 18:11 prednisone Allergy Unknown Verified 06/26/18 18:11 venlafaxine Allergy Chest Pain Verified 06/26/18 18:11 venom-honey bee Allergy Anaphylaxis Verified 06/26/18 18:11 [bee venom (honey bee)] Review of Systems ROS Statement: Those systems with pertinent positive or pertinent negative responses have been documented in the HPI. ROS Other: All systems not noted in ROS Statement are negative. Past Medical History Past Medical History: Chest Pain / Angina, COPD, GERD/Reflux, Hyperlipidemia, Hypertension, Seizure Disorder, Thyroid Disorder Additional Past Medical History / Comment(s): Chronic back pain, , brain lesions negative for ms always, constipation, hypothyroidism in the past and off medications, spondylosis, menopause, seizure yesterday per patient absent seizure couple times a day, gastroparesis normally blood pressure is 70/30, antibiotic within last 30 days due to ecoli in urine History of Any Multi-Drug Resistant Organisms: MRSA Date of last positivie culture/infection: 2011 MDRO Source:: urine Past Surgical History: Back Surgery, Section, Hysterectomy, Orthopedic Surgery, Tubal Ligation Additional Past Surgical History / Comment(s): knee, wrist, sarcodisis, vitamin d deficiency, neck surg Past Psychological History: Anxiety, Bipolar, Panic Disorder, PTSD, Schizophrenia Smoking Status: Current every day smoker Past Alcohol Use History: None Reported Past Drug Use History: Marijuana - Past Family History Father Family Medical History: No Reported History Additional Family Medical History / Comment(s): Patient states her father in his 20s as he was murdered. Mother Additional Family Medical History / Comment(s): Mother is alive at age 63 and suffers from Alzheimer's dementia and other "multiple problems." Sister(s) Additional Family Medical History / Comment(s): Patient had 2 sisters. One sister shot and killed herself. Patient has 3 brothers with no major medical problems. General Exam - General Exam Comments Initial Comments: 48-year-old female. Alert and oriented 3. Patient appears in no significant distress. General: Well appearing, well nourished, in no distress. Oriented x 3, normal mood and affect . Ambulating without difficulty. Skin: Good turgor, superficial abrasions over the left forearm where Patient has been "cutting". Hair: Normal texture and distribution. HEENT: Head: Normocephalic, atraumatic, no visible or palpable masses, depressions, or scaring. Eyes: Visual acuity intact, conjunctiva clear, sclera non-icteric, EOM intact, PERRL. Ears: EACs clear, TMs translucent & cone of light visualized. hearing intact. Pharynx: Mucosa non-inflamed, no tonsillar hypertrophy or exudate Neck: Supple, without lesions, bruits, or adenopathy, thyroid non-enlarged and non-tender Heart: No cardiomegaly or thrills; regular rate and rhythm, no murmur or gallop Lungs: Clear to auscultation and percussion Abdomen: Bowel sounds normal, no tenderness, organomegaly, masses, or hernia Back: Spine normal without deformity or tenderness, no CVA tenderness Extremities: No amputations or deformities, cyanosis, edema or varicosities, peripheral pulses intact Musculoskeletal: Normal gait and station. No misalignment, asymmetry, crepitation, defects, tenderness, masses, effusions, decreased range of motion, instability, atrophy or abnormal strength or tone in the head, neck, spine, ribs , pelvis or extremities. Neurologic: CN 2-12 normal. Sensation to pain, touch, and proprioception normal. DTRs normal in upper and lower extremities. No pathologic reflexes. Psychiatric: Oriented X3, intact recent and remote memory, she is depressed. Limitations: no limitations Course Vital Signs 07/19/18 07/20/18 23:56 01:46 Temperature 98.2 F Pulse Rate 78 98 Respiratory 16 16 Rate Blood Pressure 139/107 96/59 O2 Sat by Pulse 100 98 Oximetry Medical Decision Making - Medical Decision Making A 8-year-old female presents respiratory with complaints of depression and suicidal thoughts. Patient states that she has no further thoughts and intent. She has superficial lacerations of her forearm. Patient is informed there is no hospital beds she states that she would not be transferred. She states that she is outside [facility] and will follow up outpatient with her counselor. Patient has been dealing with irritable troubles for the past few weeks. Patient advised to follow-up with outpatient counseling services and return parameters were discussed. Disposition Clinical Impression: Depression, Adjustment reaction, Marital conflict Disposition: HOME SELF-CARE Condition: Stable Instructions: Depression (ED) Additional Instructions: Follow up with PCP and return to ED if any alarming signs or symptoms occur. Follow up with outpatient referrals. Is patient prescribed a controlled substance at d/c from ED?: No Referrals: Sadaf Gan MD [Primary Care Provider] - 1-2 days Time of Disposition: 01:32
[2018-07-20 01:48] VITALS: BP 96/59; PULSE 98
== END 2018-07-20 01:47 | disposition home or self-care (01) ==
LOC: EC 23:47
DX: S51.812A Laceration without foreign body of left forearm, initial encounter (principal); F43.21 Adjustment disorder with depressed mood; Z63.0 Problems in relationship with spouse or partner; J44.9 Chronic obstructive pulmonary disease, unspecified; K21.9 Gastro-esophageal reflux disease without esophagitis; E03.9 Hypothyroidism, unspecified; G89.29 Other chronic pain; F20.9 Schizophrenia, unspecified; F41.0 Panic disorder [episodic paroxysmal anxiety]; F17.200 Nicotine dependence, unspecified, uncomplicated; Z88.6 Allergy status to analgesic agent; Z88.8 Allergy status to other drugs, medicaments and biological substances; Z91.030 Bee allergy status; Z91.040 Latex allergy status; Z91.048 Other nonmedicinal substance allergy status; Z79.51 Long term (current) use of inhaled steroids; Z79.82 Long term (current) use of aspirin; Z79.899 Other long term (current) drug therapy; Z86.14 Personal history of Methicillin resistant Staphylococcus aureus infection; Z81.8 Family history of other mental and behavioral disorders; X78.9XXA Intentional self-harm by unspecified sharp object, initial encounter
CPT/HCPCS: 82075; 99285

== ENCOUNTER 2018-07-30 14:39 | Emergency (ER) | payer MEDICARE ==
[2018-07-30 14:47] VITALS: BP 101/56; PULSE 98; RESP 16; TEMP 98.3
[2018-07-30] MEDS ORDERED: ACETAMINOPHEN TAB 500 MG TAB PO STA (15:08)
--- NOTE | 2018-07-30 15:10 | ED ---
General Adult HPI - General Chief complaint: Extremity Injury, Lower Stated complaint: foot pain Source: patient, RN notes reviewed Mode of arrival: wheelchair Limitations: no limitations - History of Present Illness Initial comments: Patient is a 48-year-old female who presents the emergency department with complaint of right foot pain that started yesterday after she stubbed her toes against her bed frame. Denies any head injury or loss of consciousness. Denies any other injuries. Denies taking anything for pain. Patient denies any recent fever, chills, shortness of breath, chest pain, back pain, abdominal pain, nausea or vomiting, numbness or tingling, headaches or visual changes, or any other complaints. - Related Data Home Medications Medication Instructions Recorded Confirmed Multivitamins, Thera [Multivitamin 1 tab PO DAILY 12/13/17 06/26/18 (formulary)] Melatonin 5 mg PO HS 04/15/18 06/26/18 Levothyroxine Sodium [Synthroid] 50 mcg PO DAILY 04/19/18 06/26/18 Pantoprazole Sodium [Protonix] 40 mg PO DAILY 04/19/18 06/26/18 Evening [place] Oil 1,000 mg PO BID 04/25/18 06/26/18 Aspirin [Adult Low Dose Aspirin EC] 81 mg PO DAILY 05/26/18 06/26/18 Fluticasone/Salmeterol [Advair 1 puff INHALATION RT-BID 05/26/18 06/26/18 500-50 Diskus] Loratadine 10 mg PO DAILY 05/26/18 06/26/18 [place]-3 Fatty Acids/Fish Oil [Fish 2 cap PO BID 05/26/18 06/26/18 Oil 1,000 mg Softgel] Soy Isofla/Blk Cohosh/Mag Bark 155 mg PO HS 05/26/18 06/26/18 [[place]roven 155 mg Capsule] Tiotropium 18 Mcg/Puff [Spiriva] 1 puff INHALATION DAILY 05/26/18 06/26/18 chlorproMAZINE [Thorazine] 25 mg PO HS 05/26/18 06/26/18 diphenhydrAMINE [Benadryl] 25 mg PO BID 05/26/18 06/26/18 traZODone HCL 150 mg PO HS 05/26/18 06/26/18 Albuterol Nebulized [Ventolin 2.5 mg INHALATION RT-Q6H PRN 06/26/18 06/26/18 Nebulized] Biotin 300 mcg PO DAILY 06/26/18 06/26/18 Polyethylene Glycol 3350 [Miralax] 17 gm PO DAILY PRN 06/26/18 06/26/18 Previous Rx's Medication Instructions Recorded Atorvastatin [Lipitor] 10 mg PO HS 30 Days #30 tab 04/28/18 Gabapentin [Neurontin] 300 mg PO TID 30 Days #90 cap 04/28/18 Cyclobenzaprine [Flexeril] 10 mg PO TID #15 tab 06/26/18 Allergies Allergy/AdvReac Type Severity Reaction Status Date / Time ketorolac [From Toradol] Allergy Unknown Rash/Hives, Verified 07/30/18 14:47 Itching adhesive Allergy Unknown Verified 07/30/18 14:47 Corticosteroids Allergy Unknown Verified 07/30/18 14:47 (Glucocorticoids) fluoxetine HCl [From Prozac] Allergy Unknown Verified 07/30/18 14:47 latex Allergy Rash/Hives Verified 07/30/18 14:47 olanzapine [From Zyprexa] Allergy Unknown Verified 07/30/18 14:47 prednisone Allergy Unknown Verified 07/30/18 14:47 venlafaxine Allergy Chest Pain Verified 07/30/18 14:47 venom-honey bee Allergy Anaphylaxis Verified 07/30/18 14:47 [bee venom (honey bee)] Review of Systems ROS Statement: Those systems with pertinent positive or pertinent negative responses have been documented in the HPI. ROS Other: All systems not noted in ROS Statement are negative. Past Medical History Past Medical History: Chest Pain / Angina, COPD, GERD/Reflux, Hyperlipidemia, Hypertension, Seizure Disorder, Thyroid Disorder Additional Past Medical History / Comment(s): Chronic back pain, , brain lesions negative for ms always, constipation, hypothyroidism in the past and off medications, spondylosis, menopause, seizure yesterday per patient absent seizure couple times a day, gastroparesis normally blood pressure is 70/30, antibiotic within last 30 days due to ecoli in urine History of Any Multi-Drug Resistant Organisms: MRSA Date of last positivie culture/infection: 2011 MDRO Source:: urine Past Surgical History: Back Surgery, Section, Hysterectomy, Orthopedic Surgery, Tubal Ligation Additional Past Surgical History / Comment(s): knee, wrist, sarcodisis, vitamin d deficiency, neck surg Past Psychological History: Anxiety, Bipolar, Panic Disorder, PTSD, Schizophrenia Smoking Status: Current every day smoker Past Alcohol Use History: None Reported Past Drug Use History: Marijuana - Past Family History Father Family Medical History: No Reported History Additional Family Medical History / Comment(s): Patient states her father in his 20s as he was murdered. Mother Additional Family Medical History / Comment(s): Mother is alive at age 63 and suffers from Alzheimer's dementia and other "multiple problems." Sister(s) Additional Family Medical History / Comment(s): Patient had 2 sisters. One sister shot and killed herself. Patient has 3 brothers with no major medical problems. General Exam Limitations: no limitations General appearance: alert, in no apparent distress Head exam: Present: atraumatic, normocephalic Eye exam: Present: normal appearance Respiratory exam: Present: normal lung sounds bilaterally. Absent: wheezes, rales, rhonchi Cardiovascular Exam: Present: regular rate, normal rhythm Extremities exam: Present: normal inspection (No bruising. No edema.), full ROM , tenderness (Right toes 2-5 and forefoot area.), normal capillary refill Neurological exam: Present: alert, oriented X3 Skin exam: Present: warm, dry Course Vital Signs 07/30/18 14:42 Temperature 98.3 F Pulse Rate 98 Respiratory 16 Rate Blood Pressure 101/56 O2 Sat by Pulse 97 Oximetry Medical Decision Making - Medical Decision Making X-ray of the right foot is negative. Patient is verbally aggressive. Patient insists that her foot is broken and that we are "stupid." She insists that Tylenol is not strong enough for her pain. Case discussed in detail with attending physician Dr. Murcia. Disposition Clinical Impression: Contusion Disposition: HOME SELF-CARE Condition: Good Instructions (If sedation given, give patient instructions): Contusion in Adults (ED) Additional Instructions: Follow-up with your PCP in 1 to 2 days. Return to the emergency department if your symptoms worsen or other concerns. Is patient prescribed a controlled substance at d/c from ED?: No Referrals: Sadaf Gan MD [Primary Care Provider] - 1-2 days
--- NOTE | 2018-07-30 15:42 | XR ---
EXAMINATION TYPE: XR foot complete RT DATE OF EXAM: 07/30/2018 COMPARISON: None HISTORY: Hit right foot on bed, pain TECHNIQUE: 3 views right foot FINDINGS: No displaced fractures are evident. Prior surgery is along the lateral distal fifth metatar cristian tarsal. There is varus deformity of the distal fourth and fifth digits. IMPRESSION: 1. No acute osseous abnormality. 2. Follow-up studies can be performed 7-10 days from acute trauma for continued pain.
== END 2018-07-30 16:20 | disposition home or self-care (01) ==
LOC: EC 14:39
DX: S90.31XA Contusion of right foot, initial encounter (principal); Z53.29 Procedure and treatment not carried out because of patient's decision for other reasons; J44.9 Chronic obstructive pulmonary disease, unspecified; K21.9 Gastro-esophageal reflux disease without esophagitis; E78.5 Hyperlipidemia, unspecified; I10 Essential (primary) hypertension; G40.909 Epilepsy, unspecified, not intractable, without status epilepticus; E03.9 Hypothyroidism, unspecified; F31.9 Bipolar disorder, unspecified; F20.9 Schizophrenia, unspecified; F41.0 Panic disorder [episodic paroxysmal anxiety]; F43.10 Post-traumatic stress disorder, unspecified; F17.200 Nicotine dependence, unspecified, uncomplicated; Z86.14 Personal history of Methicillin resistant Staphylococcus aureus infection; Z79.82 Long term (current) use of aspirin; Z79.890 Hormone replacement therapy; Z79.51 Long term (current) use of inhaled steroids; Z79.899 Other long term (current) drug therapy; Z88.6 Allergy status to analgesic agent; Z91.040 Latex allergy status; Z91.030 Bee allergy status; Z88.8 Allergy status to other drugs, medicaments and biological substances; Z91.048 Other nonmedicinal substance allergy status; W22.8XXA Striking against or struck by other objects, initial encounter
CPT/HCPCS: 99283

== ENCOUNTER 2018-08-16 17:12 | Emergency (ER) | payer MEDICARE ==
--- NOTE | 2018-08-16 17:27 | ED ---
General Adult HPI - General Chief complaint: Abdominal Pain Stated complaint: nausea/vomiting, abd pain Time Seen by Provider: 08/16/18 17:22 Source: patient, EMS, RN notes reviewed, old records reviewed Mode of arrival: EMS Limitations: no limitations - History of Present Illness Initial comments: 48-year-old female presents for evaluation one month of worsening nausea, vomiting, and epigastric abdominal pain. Patient states she initially began with nausea, and pain with eating. This has progressed over the past 4 months to constant epigastric abdominal pain, nausea, and unable to tolerate anything today. She states her last bowel movement was 3 days ago, normal, no diarrhea. No fever or chills. No chest pain. No history of peptic ulcer disease. No rectal bleeding. - Related Data Home Medications Medication Instructions Recorded Confirmed Multivitamins, Thera [Multivitamin 1 tab PO DAILY 12/13/17 06/26/18 (formulary)] Melatonin 5 mg PO HS 04/15/18 06/26/18 Levothyroxine Sodium [Synthroid] 50 mcg PO DAILY 04/19/18 06/26/18 Pantoprazole Sodium [Protonix] 40 mg PO DAILY 04/19/18 06/26/18 Evening [place] Oil 1,000 mg PO BID 04/25/18 06/26/18 Aspirin [Adult Low Dose Aspirin EC] 81 mg PO DAILY 05/26/18 06/26/18 Fluticasone/Salmeterol [Advair 1 puff INHALATION RT-BID 05/26/18 06/26/18 500-50 Diskus] Loratadine 10 mg PO DAILY 05/26/18 06/26/18 [place]-3 Fatty Acids/Fish Oil [Fish 2 cap PO BID 05/26/18 06/26/18 Oil 1,000 mg Softgel] Soy Isofla/Blk Cohosh/Mag Bark 155 mg PO HS 05/26/18 06/26/18 [Estroven 155 mg Capsule] Tiotropium 18 Mcg/Puff [Spiriva] 1 puff INHALATION DAILY 05/26/18 06/26/18 chlorproMAZINE [Thorazine] 25 mg PO HS 05/26/18 06/26/18 diphenhydrAMINE [Benadryl] 25 mg PO BID 05/26/18 06/26/18 traZODone HCL 150 mg PO HS 05/26/18 06/26/18 Albuterol Nebulized [Ventolin 2.5 mg INHALATION RT-Q6H PRN 06/26/18 06/26/18 Nebulized] Biotin 300 mcg PO DAILY 06/26/18 06/26/18 Polyethylene Glycol 3350 [Miralax] 17 gm PO DAILY PRN 06/26/18 06/26/18 Previous Rx's Medication Instructions Recorded Atorvastatin [Lipitor] 10 mg PO HS 30 Days #30 tab 04/28/18 Gabapentin [Neurontin] 300 mg PO TID 30 Days #90 cap 04/28/18 Cyclobenzaprine [Flexeril] 10 mg PO TID #15 tab 06/26/18 Allergies Allergy/AdvReac Type Severity Reaction Status Date / Time ketorolac [From Toradol] Allergy Unknown Rash/Hives, Verified 07/30/18 14:47 Itching adhesive Allergy Unknown Verified 07/30/18 14:47 Corticosteroids Allergy Unknown Verified 07/30/18 14:47 (Glucocorticoids) fluoxetine HCl [From Prozac] Allergy Unknown Verified 07/30/18 14:47 latex Allergy Rash/Hives Verified 07/30/18 14:47 olanzapine [From Zyprexa] Allergy Unknown Verified 07/30/18 14:47 prednisone Allergy Unknown Verified 07/30/18 14:47 venlafaxine Allergy Chest Pain Verified 07/30/18 14:47 venom-honey bee Allergy Anaphylaxis Verified 07/30/18 14:47 [bee venom (honey bee)] Review of Systems ROS Statement: Those systems with pertinent positive or pertinent negative responses have been documented in the HPI. ROS Other: All systems not noted in ROS Statement are negative. Past Medical History Past Medical History: Chest Pain / Angina, COPD, GERD/Reflux, Hyperlipidemia, Hypertension, Seizure Disorder, Thyroid Disorder Additional Past Medical History / Comment(s): Chronic back pain, , brain lesions negative for ms always, constipation, hypothyroidism in the past and off medications, spondylosis, menopause, seizure yesterday per patient absent seizure couple times a day, gastroparesis normally blood pressure is 70/30, antibiotic within last 30 days due to ecoli in urine History of Any Multi-Drug Resistant Organisms: MRSA Date of last positivie culture/infection: 2011 MDRO Source:: urine Past Surgical History: Back Surgery, Section, Hysterectomy, Orthopedic Surgery, Tubal Ligation Additional Past Surgical History / Comment(s): knee, wrist, sarcodisis, vitamin d deficiency, neck surg Past Psychological History: Anxiety, Bipolar, Panic Disorder, PTSD, Schizophrenia Smoking Status: Current every day smoker Past Alcohol Use History: None Reported Past Drug Use History: Marijuana - Past Family History Father Family Medical History: No Reported History Additional Family Medical History / Comment(s): Patient states her father in his 20s as he was murdered. Mother Additional Family Medical History / Comment(s): Mother is alive at age 63 and suffers from Alzheimer's dementia and other "multiple problems." Sister(s) Additional Family Medical History / Comment(s): Patient had 2 sisters. One sister shot and killed herself. Patient has 3 brothers with no major medical problems. General Exam Limitations: no limitations General appearance: alert, in no apparent distress Head exam: Present: atraumatic, normocephalic Eye exam: Present: normal appearance, PERRL ENT exam: Present: mucous membranes dry Neck exam: Present: normal inspection. Absent: tenderness, meningismus Respiratory exam: Present: normal lung sounds bilaterally. Absent: respiratory distress, wheezes Cardiovascular Exam: Present: regular rate, normal rhythm GI/Abdominal exam: Present: soft, tenderness (Mild epigastric tenderness to palpation). Absent: distended, guarding, rebound Extremities exam: Present: normal inspection, normal capillary refill. Absent: pedal edema Neurological exam: Present: alert, oriented X3 Psychiatric exam: Present: depressed Skin exam: Present: warm, dry, intact. Absent: cyanosis, diaphoretic Course Vital Signs 08/16/18 08/16/18 08/16/18 17:22 17:30 18:30 Temperature 98.1 F Pulse Rate 78 Respiratory 19 19 Rate Blood Pressure 109/64 109/64 129/78 O2 Sat by Pulse 100 97 97 Oximetry Medical Decision Making - Medical Decision Making 48-year-old female with one month history of nausea vomiting, epigastric pain. Patient is well-appearing with stable vitals. She does have some very mild epigastric tenderness to palpation. She has history of gastric reflux. She does have a relationship with gastroenterology and received colonoscopy within the past month. She has not had upper endoscopy. Patient has normal CBC, no leukocytosis, stable hemoglobin, normal CMP, no elevation of liver enzymes, normal lipase. Troponin was obtained, negative. Patient has normal urinalysis , no ketones, no signs of dehydration. She will continue proton pump inhibitors , continue oral hydration and follow up with GI. She will return with worsening or changing symptoms. - Lab Data Result diagrams: 08/16/18 17:38 08/16/18 17:38 Lab Results 08/16/18 08/16/18 08/16/18 Range/Units 17:38 17:38 17:38 WBC 5.9 (3.8-10.6) k/uL RBC 4.57 (3.80-5.40) m/uL Hgb 13.2 (11.4-16.0) gm/dL Hct 39.8 (34.0-46.0) % MCV 87.0 (80.0-100.0) fL MCH 28.8 (25.0-35.0) pg MCHC 33.1 (31.0-37.0) g/dL RDW 14.0 (11.5-15.5) % Plt Count 331 (150-450) k/uL Neutrophils % 57 % Lymphocytes % 34 % Monocytes % 7 % Eosinophils % 1 % Basophils % 0 % Neutrophils # 3.4 (1.3-7.7) k/uL Lymphocytes # 2.0 (1.0-4.8) k/uL Monocytes # 0.4 (0-1.0) k/uL Eosinophils # 0.0 (0-0.7) k/uL Basophils # 0.0 (0-0.2) k/uL PT (9.0-12.0) sec INR (<1.2) APTT (22.0-30.0) sec Sodium 141 (137-145) mmol/L Potassium 4.5 (3.5-5.1) mmol/L Chloride 104 (98-107) mmol/L Carbon Dioxide 30 (22-30) mmol/L Anion Gap 7 mmol/L BUN 13 (7-17) mg/dL Creatinine 0.78 (0.52-1.04) mg/dL Est GFR (CKD-EPI)AfAm >90 (>60 ml/min/1.73 sqM) Est GFR (CKD-EPI)NonAf >90 (>60 ml/min/1.73 sqM) Glucose 96 (74-99) mg/dL Plasma Lactic Acid Enrique 0.8 (0.7-2.0) mmol/L Calcium 9.8 (8.4-10.2) mg/dL Total Bilirubin 0.6 (0.2-1.3) mg/dL AST 19 (14-36) U/L ALT 37 (9-52) U/L Alkaline Phosphatase 87 (38-126) U/L Troponin I (0.000-0.034) ng/mL Total Protein 7.4 (6.3-8.2) g/dL Albumin 4.2 (3.5-5.0) g/dL Amylase 46 (30-110) U/L Lipase 55 (23-300) U/L Urine Color Urine Appearance (Clear) Urine pH (5.0-8.0) Ur Specific [place] (1.001-1.035) Urine Protein (Negative) Urine Glucose (UA) (Negative) Urine Ketones (Negative) Urine Blood (Negative) Urine Nitrite (Negative) Urine Bilirubin (Negative) Urine Urobilinogen (<2.0) mg/dL Ur Leukocyte Esterase (Negative) Amorphous Sediment (None) /hpf Urine Mucus (None) /hpf 08/16/18 08/16/18 08/16/18 Range/Units 17:38 17:38 17:38 WBC (3.8-10.6) k/uL RBC (3.80-5.40) m/uL Hgb (11.4-16.0) gm/dL Hct (34.0-46.0) % MCV (80.0-100.0) fL MCH (25.0-35.0) pg MCHC (31.0-37.0) g/dL RDW (11.5-15.5) % Plt Count (150-450) k/uL Neutrophils % % Lymphocytes % % Monocytes % % Eosinophils % % Basophils % % Neutrophils # (1.3-7.7) k/uL Lymphocytes # (1.0-4.8) k/uL Monocytes # (0-1.0) k/uL Eosinophils # (0-0.7) k/uL Basophils # (0-0.2) k/uL PT 10.2 (9.0-12.0) sec INR 0.9 (<1.2) APTT 26.9 (22.0-30.0) sec Sodium (137-145) mmol/L Potassium (3.5-5.1) mmol/L Chloride (98-107) mmol/L Carbon Dioxide (22-30) mmol/L Anion Gap mmol/L BUN (7-17) mg/dL Creatinine (0.52-1.04) mg/dL Est GFR (CKD-EPI)AfAm (>60 ml/min/1.73 sqM) Est GFR (CKD-EPI)NonAf (>60 ml/min/1.73 sqM) Glucose (74-99) mg/dL Plasma Lactic Acid Enrique (0.7-2.0) mmol/L Calcium (8.4-10.2) mg/dL Total Bilirubin (0.2-1.3) mg/dL AST (14-36) U/L ALT (9-52) U/L Alkaline Phosphatase (38-126) U/L Troponin I <0.012 (0.000-0.034) ng/mL Total Protein (6.3-8.2) g/dL Albumin (3.5-5.0) g/dL Amylase (30-110) U/L Lipase (23-300) U/L Urine Color Yellow Urine Appearance Turbid H (Clear) Urine pH 8.0 (5.0-8.0) Ur Specific [place] 1.017 (1.001-1.035) Urine Protein Trace H (Negative) Urine Glucose (UA) Negative (Negative) Urine Ketones Negative (Negative) Urine Blood Negative (Negative) Urine Nitrite Negative (Negative) Urine Bilirubin Negative (Negative) Urine Urobilinogen 2.0 (<2.0) mg/dL Ur Leukocyte Esterase Negative (Negative) Amorphous Sediment Occasional H (None) /hpf Urine Mucus Moderate H (None) /hpf Disposition Clinical Impression: Abdominal pain, Nausea & vomiting Disposition: HOME SELF-CARE Condition: Fair Instructions (If sedation given, give patient instructions): Abdominal Pain (ED ), Acute Nausea and Vomiting (ED) Is patient prescribed a controlled substance at d/c from ED?: No Referrals: Sadaf Gan MD [Primary Care Provider] - 1-2 days Lillian Guzmán MD [STAFF PHYSICIAN] - 1-2 days Time of Disposition: 19:15
[2018-08-16] MEDS ORDERED: MORPHINE SULFATE 4 MG/ML SYRINGE IVP STA (17:31)
[2018-08-16] MEDS ORDERED: SODIUM CHLORIDE 0.9% 1,000 ML IV STA (17:31)
[2018-08-16] MEDS ORDERED: ONDANSETRON ODT 8 MG TAB.RAPDIS PO STA (17:31)
[2018-08-16] MEDS ORDERED: PANTOPRAZOLE 40 MG/10 ML VIAL IVP STA (17:32)
[2018-08-16] MEDS ORDERED: MAG HYDROX/AL HYDROX/SIMETH 30 ML, HYOSCYAMINE ELIXIR 10 ML, CIMETIDINE HCL 300 MG, LID... PO STA ×4 (17:32)
[2018-08-16 18:06] LABS: Amorphous Sediment,Urine Occasional /hpf; Appearance,Urine Turbid (Clear); Bilirubin,Urine Negative (Negative); Blood,Urine Negative (Negative); Color,Urine Yellow; Glucose,Urine (UA) Negative (Negative); Ketones,Urine Negative (Negative); Leukocyte Esterase,Urine Negative (Negative); Mucus,Urine Moderate /hpf; Nitrite,Urine Negative (Negative); Protein,Urine Trace (Negative); Specific Gravity,Urine 1.017 (1.001-1.035)
[2018-08-16 18:11] LABS: INR 0.9 (<1.2); Partial Thromboplastin Time 26.9 sec (22.0-30.0); Prothrombin Time 10.2 sec (9.0-12.0)
[2018-08-16 18:12] LABS: ALT 37 U/L (9-52); Albumin 4.2 g/dL (3.5-5.0); Alkaline Phosphatase 87 U/L (38-126); Amylase 46 U/L (30-110); Anion Gap 7 mmol/L; Blood Urea Nitrogen 13 mg/dL (7-17); Calcium 9.8 mg/dL (8.4-10.2); Carbon Dioxide 30 mmol/L (22-30); Chloride 104 mmol/L (98-107); Lipase 55 U/L (23-300); Potassium 4.5 mmol/L (3.5-5.1); Sodium 141 mmol/L (137-145); Total Protein 7.4 g/dL (6.3-8.2)
[2018-08-16 18:13] LABS: AST 19 U/L (14-36); Glucose 96 mg/dL (74-99); Total Bilirubin 0.6 mg/dL (0.2-1.3)
[2018-08-16 18:20] LABS: Basophils % (A) 0 %; Eosinophils % (A) 1 %; HCT 39.8 % (34.0-46.0); HGB 13.2 gm/dL (11.4-16.0); Lymphocytes % (A) 34 %; MCH 28.8 pg (25.0-35.0); MCHC 33.1 g/dL (31.0-37.0); Mean Platelet Volume 6.8; Monocytes # (A) 0.4 k/uL (0-1.0); Monocytes % (A) 7 %; Neutrophils # (A) 3.4 k/uL (1.3-7.7); Neutrophils % (A) 57 %; Platelet Count 331 k/uL (150-450); RBC 4.57 m/uL (3.80-5.40); WBC 5.9 k/uL (3.8-10.6)
--- NOTE | 2018-08-16 18:47 | XR ---
Abdomen single view. History abdominal pain. Comparison none. FINDINGS: There is no sign of intestinal obstruction or pneumoperitoneum. Fecal pattern is normal. Lung bases a re clear. There are no pathologic calcifications over the kidneys. There is lumbar spine surgery at L 3-4. Impression nonacute abdomen.
[2018-08-16 19:29] VITALS: BP 114/66; PULSE 82; RESP 16; TEMP 98.2
== END 2018-08-16 19:29 | disposition home or self-care (01) ==
LOC: EC 17:12
DX: R10.13 Epigastric pain (principal); R11.2 Nausea with vomiting, unspecified; J44.9 Chronic obstructive pulmonary disease, unspecified; K21.9 Gastro-esophageal reflux disease without esophagitis; E03.9 Hypothyroidism, unspecified; F41.9 Anxiety disorder, unspecified; F31.9 Bipolar disorder, unspecified; F43.10 Post-traumatic stress disorder, unspecified; F20.9 Schizophrenia, unspecified; F17.200 Nicotine dependence, unspecified, uncomplicated; Z86.14 Personal history of Methicillin resistant Staphylococcus aureus infection; Z87.19 Personal history of other diseases of the digestive system; Z90.710 Acquired absence of both cervix and uterus; Z98.51 Tubal ligation status; Z53.8 Procedure and treatment not carried out for other reasons; Z79.890 Hormone replacement therapy; Z79.82 Long term (current) use of aspirin; Z79.51 Long term (current) use of inhaled steroids; Z79.899 Other long term (current) drug therapy; Z88.6 Allergy status to analgesic agent; Z91.048 Other nonmedicinal substance allergy status; Z88.8 Allergy status to other drugs, medicaments and biological substances; Z91.040 Latex allergy status; Z91.030 Bee allergy status
CPT/HCPCS: 36415; 80053; 82150; 83605; 83690; 84484; 85025; 85610; 85730; 81001; 74018; 99285; 96374; 96375; 96361 ×2; J2270; C9113

== ENCOUNTER → 2018-10-31 | Outpatient (CLI) | payer MEDICARE ==
--- NOTE | 2018-10-31 11:33 | US ---
EXAMINATION TYPE: US venous doppler duplex LE LT DATE OF EXAM: 10/31/2018 11:21 AM COMPARISON: US 2013 CLINICAL HISTORY: M79.662 Lt Leg Pain, I83.819 Varicose Veins w/pa. Left lower leg pain x 1 day SIDE PERFORMED: Left TECHNIQUE: The lower extremity deep venous system is examined utilizing real time linear array sonog krystian with graded compression, doppler sonography and color-flow sonography. VESSELS IMAGED: External Iliac Vein (EIV) Common Femoral Vein Deep Femoral Vein Greater Saphenous Vein * Femoral Vein Popliteal Vein Small Saphenous Vein * Proximal Calf Veins (* superficial vessels) Left Leg: Appears negative for DVT IMPRESSION: No evidence for a DVT at this time.
== END | disposition home or self-care (01) ==
LOC: RADUSWWP 10:56
PROVIDERS: ATTEND Nurse Practitioner Family
DX: M79.662 Pain in left lower leg (principal); I83.819 Varicose veins of unspecified lower extremity with pain

== ENCOUNTER 2018-11-04 04:19 | Emergency (ER) | payer MEDICARE ==
[2018-11-04 04:31] VITALS: RESP 18
--- NOTE | 2018-11-04 04:58 | XR ---
EXAM: XR Right Ankle Complete, 3 or More Views CLINICAL HISTORY: ITS.REASON XR Reason: Pain/ dropped table on foot. TECHNIQUE: Frontal, lateral and oblique views of the right ankle. COMPARISON: No relevant prior studies available. FINDINGS: Bones/joints: Unremarkable. No acute fracture. No dislocation. Soft tissues: Unremarkable. IMPRESSION: Normal right ankle x-rays.
--- NOTE | 2018-11-04 05:50 | ED ---
Lower Extremity Injury HPI - General Chief Complaint: Extremity Injury, Lower Stated Complaint: Ankle injury Time Seen by Provider: 11/04/18 04:48 Source: patient Mode of arrival: wheelchair Limitations: physical limitation - History of Present Illness Initial Comments: Patient's 48-year-old woman who states that she was moving furniture in the afternoon and states that she felt the pain in her back, and then when she did she'll sit furniture down on her right ankle. Since that time she has had worsening right ankle pain, and now is making it difficult to walk. Complaint: ankle injury Onset/Timin -: hour(s) Injury: Ankle: Right Place: home Severity: moderate Improves With: nothing Worsens With: nothing Context: direct blow - Related Data Home Medications Medication Instructions Recorded Confirmed Multivitamins, Thera [Multivitamin 1 tab PO DAILY 12/13/17 08/16/18 (formulary)] Melatonin 5 mg PO HS 04/15/18 08/16/18 Levothyroxine Sodium [Synthroid] 50 mcg PO DAILY 04/19/18 08/16/18 Pantoprazole Sodium [Protonix] 40 mg PO DAILY 04/19/18 08/16/18 Evening [place] Oil 1,000 mg PO BID 04/25/18 08/16/18 Aspirin [Adult Low Dose Aspirin EC] 81 mg PO DAILY 05/26/18 08/16/18 Fluticasone/Salmeterol [Advair 1 puff INHALATION RT-BID 05/26/18 08/16/18 500-50 Diskus] Loratadine 10 mg PO DAILY 05/26/18 08/16/18 [place]-3 Fatty Acids/Fish Oil [Fish 2 cap PO BID 05/26/18 08/16/18 Oil 1,000 mg Softgel] Soy Isofla/Blk Coh[place]/Mag Bark 155 mg PO HS 05/26/18 08/16/18 [[place]roven 155 mg Capsule] Tiotropium 18 Mcg/Puff [Spiriva] 1 puff INHALATION DAILY 05/26/18 08/16/18 chlorproMAZINE [Thorazine] 25 mg PO HS 05/26/18 08/16/18 diphenhydrAMINE [Benadryl] 25 mg PO BID 05/26/18 08/16/18 traZODone HCL 150 mg PO HS 05/26/18 08/16/18 Albuterol Nebulized [Ventolin 2.5 mg INHALATION RT-Q6H PRN 06/26/18 08/16/18 Nebulized] Biotin 300 mcg PO DAILY 06/26/18 08/16/18 Polyethylene Glycol 3350 [Miralax] 17 gm PO DAILY PRN 06/26/18 08/16/18 Previous Rx's Medication Instructions Recorded Atorvastatin [Lipitor] 10 mg PO HS 30 Days #30 tab 04/28/18 Gabapentin [Neurontin] 300 mg PO TID 30 Days #90 cap 04/28/18 Cyclobenzaprine [Flexeril] 10 mg PO TID #15 tab 06/26/18 Allergies Allergy/AdvReac Type Severity Reaction Status Date / Time ketorolac [From Toradol] Allergy Unknown Rash/Hives, Verified 11/04/18 04:31 Itching adhesive Allergy Unknown Verified 11/04/18 04:31 Corticosteroids Allergy Unknown Verified 11/04/18 04:31 (Glucocorticoids) fluoxetine HCl [From Prozac] Allergy Unknown Verified 11/04/18 04:31 latex Allergy Rash/Hives Verified 11/04/18 04:31 olanzapine [From Zyprexa] Allergy Unknown Verified 11/04/18 04:31 prednisone Allergy Unknown Verified 11/04/18 04:31 venlafaxine Allergy Chest Pain Verified 11/04/18 04:31 venom-honey bee Allergy Anaphylaxis Verified 11/04/18 04:31 [bee venom (honey bee)] Review of Systems ROS Statement: Those systems with pertinent positive or pertinent negative responses have been documented in the HPI. ROS Other: All systems not noted in ROS Statement are negative. Skin: Reports: lesions (Abrasion). Denies: rash Neurological: Denies: weakness, numbness Past Medical History Past Medical History: Chest Pain / Angina, COPD, GERD/Reflux, Hyperlipidemia, Hypertension, Seizure Disorder, Thyroid Disorder Additional Past Medical History / Comment(s): Chronic back pain, , brain lesions negative for ms always, constipation, hypothyroidism in the past and off medications, spondylosis, menopause, seizure yesterday per patient absent seizure couple times a day, gastroparesis normally blood pressure is 70/30, History of Any Multi-Drug Resistant Organisms: MRSA Date of last positivie culture/infection: 2011, MDRO Source:: urine Past Surgical History: Back Surgery, Section, Hysterectomy, Orthopedic Surgery, Tubal Ligation Additional Past Surgical History / Comment(s): knee, wrist, sarcodisis, vitamin d deficiency, neck surg, Past Psychological History: Anxiety, Bipolar, Panic Disorder, PTSD, Schizophrenia Smoking Status: Current every day smoker Past Alcohol Use History: Occasional Past Drug Use History: Marijuana - Past Family History Father Family Medical History: No Reported History Additional Family Medical History / Comment(s): Patient states her father in his 20s as he was murdered. Mother Additional Family Medical History / Comment(s): Mother is alive at age 63 and suffers from Alzheimer's dementia and other "multiple problems." Sister(s) Additional Family Medical History / Comment(s): Patient had 2 sisters. One sister shot and killed herself. Patient has 3 brothers with no major medical problems. General Exam Limitations: physical limitation General appearance: alert Neurological exam: Present: alert. Absent: motor sensory deficit Skin exam: Present: warm, dry, intact, normal color, abrasion (Right ankle) Course Vital Signs 11/04/18 04:28 Temperature 97.8 F Pulse Rate 91 Respiratory 18 Rate Blood Pressure 97/57 O2 Sat by Pulse 100 Oximetry Disposition Clinical Impression: Ankle sprain and strain Disposition: HOME SELF-CARE Condition: Good Instructions (If sedation given, give patient instructions): Ankle Sprain (ED) Is patient prescribed a controlled substance at d/c from ED?: No Referrals: Sadaf Gan MD [Primary Care Provider] - 1-2 days
[2018-11-04 06:57] VITALS: BP 108/68; PULSE 75; TEMP 96.9
== END 2018-11-04 06:54 | disposition home or self-care (01) ==
LOC: EC 04:19
DX: S93.401A Sprain of unspecified ligament of right ankle, initial encounter (principal); S96.911A Strain of unspecified muscle and tendon at ankle and foot level, right foot, initial encounter; J44.9 Chronic obstructive pulmonary disease, unspecified; K21.9 Gastro-esophageal reflux disease without esophagitis; I10 Essential (primary) hypertension; F41.0 Panic disorder [episodic paroxysmal anxiety]; F31.9 Bipolar disorder, unspecified; F17.200 Nicotine dependence, unspecified, uncomplicated; Z79.890 Hormone replacement therapy; Z79.82 Long term (current) use of aspirin; Z79.899 Other long term (current) drug therapy; W20.8XXA Other cause of strike by thrown, projected or falling object, initial encounter
CPT/HCPCS: 99283

== ENCOUNTER 2018-12-07 18:38 | Emergency (ER) | payer MEDICARE ==
--- NOTE | 2018-12-07 20:10 | XR ---
EXAMINATION TYPE: XR foot complete RT DATE OF EXAM: 12/07/2018 COMPARISON: NONE HISTORY: Foot pain TECHNIQUE: 3 views FINDINGS: There is old osteotomy of the distal fifth metatarsal. I see no fracture nor dislocation. T here are no erosions. There is no sign of radiopaque foreign body. IMPRESSION: Previous surgery. No acute bony abnormality. No evidence of a foreign body.
--- NOTE | 2018-12-07 20:43 | ED ---
General Adult HPI - General Chief complaint: Extremity Injury, Lower Stated complaint: rt foot poss FB Time Seen by Provider: 12/07/18 19:14 Source: patient, RN notes reviewed, old records reviewed Mode of arrival: ambulatory Limitations: no limitations - History of Present Illness Initial comments: 48-year-old female patient with past medical history of chronic back pain, hypertension,, status post hysterectomy presents to ED with pain and right foot. Patient works that she was walking in her house barefoot approximately one week ago and he focuses on the sharp went in the plantar aspect of her right midfoot region. Patient reports that she walks she feels as if she has a sharp pain in that region. Patient also has secondary complaint of burning with urination, feels that she has a urinary tract infection. Patient denies any other complaints. The chest pain shortness of breath abdominal pain, nausea vomiting or diarrhea. Systemic: Pt denies fatigue, fever/chills, rash. Pt denies weakness, night sweats, weight loss. Neuro: Pt denies headache, visual disturbances, syncope or pre-syncope. HEENT: Pt denies ocular discharge or irritation, otalgia, rhinorrhea, pharyngitis or notable lymphadenopathy. Cardiopulmonary: Pt denies chest pain, SOB, heart palpitations, dyspnea on exertion. Abdominal/GI: Pt denies abdominal pain, n/v/d. : Pt denies dysuria, burning w/ urination, frequency/urgency. Denies new onset urinary or bowel incontinence. MSK: Pt denies myalgia, loss of strength or function in extremities. Neuro: Pt denies new onset weakness, paresthesias. - Related Data Home Medications Medication Instructions Recorded Confirmed Multivitamins, Thera [Multivitamin 1 tab PO DAILY 12/13/17 08/16/18 (formulary)] Melatonin 5 mg PO HS 04/15/18 08/16/18 Levothyroxine Sodium [Synthroid] 50 mcg PO DAILY 04/19/18 08/16/18 Pantoprazole Sodium [Protonix] 40 mg PO DAILY 04/19/18 08/16/18 Evening [place] Oil 1,000 mg PO BID 04/25/18 08/16/18 Aspirin [Adult Low Dose Aspirin EC] 81 mg PO DAILY 05/26/18 08/16/18 Fluticasone/Salmeterol [Advair 1 puff INHALATION RT-BID 05/26/18 08/16/18 500-50 Diskus] Loratadine 10 mg PO DAILY 05/26/18 08/16/18 [place]-3 Fatty Acids/Fish Oil [Fish 2 cap PO BID 05/26/18 08/16/18 Oil 1,000 mg Softgel] Soy Isofla/Blk [place]/Mag Bark 155 mg PO HS 05/26/18 08/16/18 [Estroven 155 mg Capsule] Tiotropium 18 Mcg/Puff [Spiriva] 1 puff INHALATION DAILY 05/26/18 08/16/18 chlorproMAZINE [Thorazine] 25 mg PO HS 05/26/18 08/16/18 diphenhydrAMINE [Benadryl] 25 mg PO BID 05/26/18 08/16/18 traZODone HCL 150 mg PO HS 05/26/18 08/16/18 Albuterol Nebulized [Ventolin 2.5 mg INHALATION RT-Q6H PRN 06/26/18 08/16/18 Nebulized] Biotin 300 mcg PO DAILY 06/26/18 08/16/18 Polyethylene Glycol 3350 [Miralax] 17 gm PO DAILY PRN 06/26/18 08/16/18 Previous Rx's Medication Instructions Recorded Atorvastatin [Lipitor] 10 mg PO HS 30 Days #30 tab 04/28/18 Gabapentin [Neurontin] 300 mg PO TID 30 Days #90 cap 04/28/18 Cyclobenzaprine [Flexeril] 10 mg PO TID #15 tab 06/26/18 Cephalexin [Keflex] 500 mg PO Q12HR 10 Days cap 12/07/18 Allergies Allergy/AdvReac Type Severity Reaction Status Date / Time ketorolac [From Toradol] Allergy Unknown Rash/Hives, Verified 12/07/18 19:11 Itching adhesive Allergy Unknown Verified 12/07/18 19:11 Corticosteroids Allergy Unknown Verified 12/07/18 19:11 (Glucocorticoids) fluoxetine HCl [From Prozac] Allergy Unknown Verified 12/07/18 19:11 latex Allergy Rash/Hives Verified 12/07/18 19:11 olanzapine [From Zyprexa] Allergy Unknown Verified 12/07/18 19:11 prednisone Allergy Unknown Verified 12/07/18 19:11 venlafaxine Allergy Chest Pain Verified 12/07/18 19:11 venom-honey bee Allergy Anaphylaxis Verified 12/07/18 19:11 [bee venom (honey bee)] Review of Systems ROS Statement: Those systems with pertinent positive or pertinent negative responses have been documented in the HPI. ROS Other: All systems not noted in ROS Statement are negative. Past Medical History Past Medical History: Chest Pain / Angina, COPD, GERD/Reflux, Hyperlipidemia, Hypertension, Seizure Disorder, Thyroid Disorder Additional Past Medical History / Comment(s): Chronic back pain, , brain lesions negative for ms always, constipation, hypothyroidism in the past and off medications, spondylosis, menopause, seizure gastroparesis normally blood pressure is 70/30, History of Any Multi-Drug Resistant Organisms: MRSA Date of last positivie culture/infection: 2011, MDRO Source:: urine Past Surgical History: Back Surgery, Section, Hysterectomy, Orthopedic Surgery, Tubal Ligation Additional Past Surgical History / Comment(s): knee, wrist, sarcodisis, vitamin d deficiency, neck surg, Past Psychological History: Anxiety, Bipolar, Panic Disorder, PTSD, Schizophrenia Smoking Status: Current every day smoker Past Alcohol Use History: Occasional Past Drug Use History: Marijuana - Past Family History Father Family Medical History: No Reported History Additional Family Medical History / Comment(s): Patient states her father in his 20s as he was murdered. Mother Additional Family Medical History / Comment(s): Mother is alive at age 63 and suffers from Alzheimer's dementia and other "multiple problems." Sister(s) Additional Family Medical History / Comment(s): Patient had 2 sisters. One sister shot and killed herself. Patient has 3 brothers with no major medical problems. General Exam - General Exam Comments Initial Comments: Constitutional: NAD, AOX3, Pt has pleasant affect. HEENT: NC/AT, trachea midline, neck supple, no lymphadenopathy. Posterior pharynx non erythematous, without exudates. External ears appear normal, without discharge. Mucous membranes moist. Eyes PERRLA, EOM intact. There is no scleral icterus. No pallor noted. Cardiopulmonary: RRR, no murmurs, rubs or gallops, no JVD noted. Lungs CTAB in anterior and posterior rhodes. No peripheral edema. Abdominal exam: Abdomen soft and non-distended. Abdomen non-tender to palpation in all 4 quadrants. Bowel sounds active in LLQ. No hepatosplenomegaly. No ecchymosis Neuro: CN II-XII grossly intact. No nuchal rigidity. No raccon eyes, no goodwin sign, no hemotympanum. No cervical spinal tenderness. MSK: Plantar aspect of right midfoot region mildly tender to palpation. No erythema, no foreign body noted.Capillary refill <2 seconds. No posterior calf tenderness bilaterally, homans sign negative bilaterally. Posterior tibialis and radial pulse +2 bilaterally. Sensation intact in upper and lower extremities. Full active ROM in upper and lower extremities, 5/5 stregnth. Limitations: no limitations Course Vital Signs 12/07/18 19:09 Temperature 98.3 F Pulse Rate 95 Respiratory 18 Rate Blood Pressure 109/53 O2 Sat by Pulse 98 Oximetry Medical Decision Making - Medical Decision Making 48-year-old female patient with past medical history of chronic back pain, hypertension,, status post hysterectomy presents to ED with pain and right foot. Patient works that she was walking in her house barefoot approximately one week ago and he focuses on the sharp went in the plantar aspect of her right midfoot region. Patient reports that she walks she feels as if she has a sharp pain in that region. Patient also has secondary complaint of burning with urination, feels that she has a urinary tract infection. Patient denies any other complaints. The chest pain shortness of breath abdominal pain, nausea vomiting or diarrhea. Patient vital signs stable, afebrile. Physical exam displayed: Plantar aspect of right midfoot region mildly tender to palpation. No erythema, no foreign body noted.Capillary refill <2 seconds. Plain film of foot displayed no acute process. UA displayed urinary tract infection. Patient administered 1 g Rocephin in ED. Patient discharged with Keflex. Patient placed in postop walking boot. Patient to follow up with primary care provider and orthopedic consult. Case discussed with Dr. García. - Lab Data Lab Results 12/07/18 12/07/18 Range/Units 20:30 20:30 Urine Color Yellow Urine Appearance Cloudy H (Clear) Urine pH 6.0 (5.0-8.0) Ur Specific [place] 1.026 (1.001-1.035) Urine Protein Trace H (Negative) Urine Glucose (UA) Negative (Negative) Urine Ketones Negative (Negative) Urine Blood Small H (Negative) Urine Nitrite Positive H (Negative) Urine Bilirubin Negative (Negative) Urine Urobilinogen <2.0 (<2.0) mg/dL Ur Leukocyte Esterase Large H (Negative) Urine RBC 5 (0-5) /hpf Urine WBC 57 H (0-5) /hpf Ur Squamous Epith Cells 1 (0-4) /hpf Urine Bacteria Many H (None) /hpf Urine Mucus Few H (None) /hpf Urine HCG, Qual Not Detected (Not Detectd) Disposition Clinical Impression: Foot pain Disposition: HOME SELF-CARE Condition: Stable Instructions (If sedation given, give patient instructions): Arthralgia (ED) Additional Instructions: Patient to adhere to previously discussed treatment plan and will take medication(s) as directed. Patient to follow up with PCP in 1-2 days. Patient to return to ED if symptoms do not improve. Follow up with primary care provider orthopedic consult 1-2 days. Take medication as directed. Prescriptions: Cephalexin [Keflex] 500 mg PO Q12HR 10 Days cap Is patient prescribed a controlled substance at d/c from ED?: No Referrals: Sadaf Gan MD [Primary Care Provider] - 1-2 days
[2018-12-07 20:51] LABS: Appearance,Urine Cloudy (Clear); Bacteria,Urine Many /hpf; Bilirubin,Urine Negative (Negative); Blood,Urine Small (Negative); Color,Urine Yellow; Glucose,Urine (UA) Negative (Negative); Ketones,Urine Negative (Negative); Leukocyte Esterase,Urine Large (Negative); Mucus,Urine Few /hpf; Nitrite,Urine Positive (Negative); Protein,Urine Trace (Negative); RBC,Urine 5 /hpf (0-5); Specific Gravity,Urine 1.026 (1.001-1.035); Squamous Epithelial Cell,Urine 1 /hpf (0-4); Urobilinogen,Urine <2.0 mg/dL (<2.0); WBC,Urine 57 /hpf (0-5)
[2018-12-07] MEDS ORDERED: cefTRIAXone 1,000 MG VIAL (IM USE) IM STA (21:06)
[2018-12-08 00:28] VITALS: BP 128/78; PULSE 87; RESP 16; TEMP 98.2
== END 2018-12-07 21:20 | disposition home or self-care (01) ==
LOC: EC 18:38
DX: M79.671 Pain in right foot (principal); R39.198 Other difficulties with micturition; J44.9 Chronic obstructive pulmonary disease, unspecified; K21.9 Gastro-esophageal reflux disease without esophagitis; E78.5 Hyperlipidemia, unspecified; I10 Essential (primary) hypertension; G40.909 Epilepsy, unspecified, not intractable, without status epilepticus; E03.9 Hypothyroidism, unspecified; F31.9 Bipolar disorder, unspecified; F20.9 Schizophrenia, unspecified; F41.0 Panic disorder [episodic paroxysmal anxiety]; F43.10 Post-traumatic stress disorder, unspecified; F17.200 Nicotine dependence, unspecified, uncomplicated; Z86.14 Personal history of Methicillin resistant Staphylococcus aureus infection; Z79.51 Long term (current) use of inhaled steroids; Z79.82 Long term (current) use of aspirin; Z79.890 Hormone replacement therapy; Z79.899 Other long term (current) drug therapy; Z88.6 Allergy status to analgesic agent; Z91.040 Latex allergy status; Z88.8 Allergy status to other drugs, medicaments and biological substances; Z91.030 Bee allergy status; Z53.8 Procedure and treatment not carried out for other reasons
CPT/HCPCS: 81001; 81025; 99284

== ENCOUNTER 2018-12-17 18:38 | Inpatient (IN) | payer MEDICARE ==
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
[2018-12-17 20:06] LABS: Amphetamine Screen,Urine Not Detected (NotDetected); Barbiturate Screen,Urine Not Detected (NotDetected); Benzodiazepines Screen,Urine Not Detected (NotDetected); Cocaine Screen,Urine Not Detected (NotDetected); Methadone Screen, Urine Not Detected (NotDetected); Opiate Screen,Urine Not Detected (NotDetected); Oxycodone Screen, Urine Not Detected (NotDetected); Phencyclidine Screen,Urine Not Detected (NotDetected); Tricyclic Antidepressant,Urine Not Detected (NotDetected); Urn Cannabinoid Scrn Detected (NotDetected)
[2018-12-17] MEDS ORDERED: ACETAMINOPHEN TAB 325 MG TAB PO PRN (21:03)
[2018-12-17] MEDS ORDERED: MAG HYDROX/AL HYDROX/SIMETH 30 ML CUP PO PRN (21:03)
[2018-12-17] MEDS ORDERED: ZIPRASIDONE 20 MG VIAL IM PRN (21:03)
[2018-12-17] MEDS ORDERED: MAGNESIUM HYDROXIDE 2,400 MG/10 ML CUP PO PRN (21:03)
[2018-12-17] MEDS: NICOTINE 21MG/24HR PATCH TRANSDERM SCH (21:52)
[2018-12-17] MEDS: GABAPENTIN 300 MG CAP PO SCH (21:52)
[2018-12-17] MEDS: MELATONIN 5 MG TABLET PO SCH (21:52)
[2018-12-17] MEDS: LORazepam 1 MG TAB PO PRN (22:06)
[2018-12-17] MEDS: IPRATROPIUM-ALBUTEROL 3 ML NEB INHALATION PRN (22:59)
[2018-12-17] MEDS ORDERED: traZODone HCL 100 MG TAB PO SCH (23:02)
[2018-12-17] MEDS: ATORVASTATIN 10 MG TAB PO SCH (23:06)
[2018-12-18] MEDS: LEVOTHYROXINE 50 MCG TAB PO SCH (06:15)
[2018-12-18 07:05] VITALS: RESP 16; TEMP 97.9
[2018-12-18] MEDS: PANTOPRAZOLE 40 MG TABLET PO SCH (07:46)
[2018-12-18] MEDS: ASPIRIN 81 MG PO SCH (08:29)
[2018-12-18] MEDS: NICOTINE 21MG/24HR PATCH TRANSDERM SCH (08:29)
[2018-12-18] MEDS: POLYETHYLENE GLYCOL 3350 17 GM POWD.PACK PO SCH (08:29)
[2018-12-18] MEDS: GABAPENTIN 300 MG CAP PO SCH ×3 (08:29→21:12)
[2018-12-18] MEDS: MULTIVITAMINS, THERA 1 EACH TAB PO SCH (08:29)
[2018-12-18] MEDS: LORazepam 1 MG TAB PO PRN ×2 (08:34→15:54)
[2018-12-18] MEDS ORDERED: NON-FORMULARY DRUG (Omega-3 Fatty Acids/Fish Oil [Fish Oil 1,000 Mg Softgel] 2 CAP) PO SCH (09:00)
[2018-12-18] MEDS ORDERED: PNEUMOCOCCAL VACC-PNEUMOVAX 23 25 MCG/0.5 ML VIAL IM ONE (09:00)
[2018-12-18] MEDS: traZODone HCL 50 MG TAB PO SCH (10:01)
[2018-12-18 10:21] VITALS: BMI 20.4
[2018-12-18 11:39] LABS: Basophils % (A) 0 %; Eosinophils # (A) 0.1 k/uL (0-0.7); Eosinophils % (A) 1 %; HCT 39.5 % (34.0-46.0); HGB 13.3 gm/dL (11.4-16.0); Lymphocytes % (A) 37 %; MCH 29.9 pg (25.0-35.0); MCHC 33.6 g/dL (31.0-37.0); Mean Platelet Volume 8.3; Monocytes # (A) 0.4 k/uL (0-1.0); Monocytes % (A) 7 %; Neutrophils # (A) 2.8 k/uL (1.3-7.7); Neutrophils % (A) 53 %; Platelet Count 195 k/uL (150-450); RBC 4.44 m/uL (3.80-5.40); RDW 14.3 % (11.5-15.5); WBC 5.4 k/uL (3.8-10.6)
[2018-12-18 11:52] LABS: Appearance,Urine Clear (Clear); Bilirubin,Urine Negative (Negative); Blood,Urine Negative (Negative); Color,Urine Yellow; Glucose,Urine (UA) Negative (Negative); Ketones,Urine Negative (Negative); Leukocyte Esterase,Urine Trace (Negative); Mucus,Urine Rare /hpf; Nitrite,Urine Negative (Negative); PH, Urine 6.5 (5.0-8.0); Protein,Urine Negative (Negative); RBC,Urine 2 /hpf (0-5); Specific Gravity,Urine 1.009 (1.001-1.035); Squamous Epithelial Cell,Urine <1 /hpf (0-4); Urobilinogen,Urine <2.0 mg/dL (<2.0); WBC,Urine 3 /hpf (0-5)
[2018-12-18 11:52] LABS: ALT 29 U/L (9-52); AST 22 U/L (14-36); African American GFR (CKD) >90 (>60 ml/min/1.73 sqM); Albumin 4.4 g/dL (3.5-5.0); Alkaline Phosphatase 65 U/L (38-126); Anion Gap 5 mmol/L; Bilirubin, Delta 0.2 mg/dL (0.0-0.2); Bilirubin,Unconjugated 0.1 mg/dL (0.0-1.1); Blood Urea Nitrogen 17 mg/dL (7-17); Calcium 9.9 mg/dL (8.4-10.2); Carbon Dioxide 30 mmol/L (22-30); Chloride 106 mmol/L (98-107); Cholesterol 202 mg/dL (<200); Glucose 76 mg/dL (74-99); HDL Cholesterol 60 mg/dL (40-60); LDL Cholesterol,Calculated 121 mg/dL (0-99); Potassium 4.6 mmol/L (3.5-5.1); Sodium 141 mmol/L (137-145); Total Bilirubin 0.3 mg/dL (0.2-1.3); Total Protein 7.1 g/dL (6.3-8.2); Triglycerides 103 mg/dL (<150)
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
--- NOTE | 2018-12-18 12:10 | P.CONS ---
History of Present Illness - History of Present Illness This is a pleasant 48 years old female with past medical history of pseudosei zure, chronic neck and back pain for 5 years as per patient, nicotine dependence and marijuana abuse, COPD, coronary artery disease, hyperlipidemia, hypertension and menopause,. She presents to the site units with signs symptoms of depression and suicidal ideation without attempt. Patient says that she has pseudoseizure every day since she was a kid, she just have one, nurse at bedside stated that patient was awake all the time and she slipped and the floor stating that this is a seizure, there is no confusion or loss of consciousness, no epileptic like activity and no postictal effusion. Patient also states she has chronic neck and back pain and she says that she has pain in her right foods but she denies trauma. No chest pain or dyspnea. No abdominal pain. No nausea vomiting. No change in urine or bowel habits. looks unremarkable and urine analysis shows no suspicion for infection. Urine drug screen is positive for marijuana Review of Systems CONSTITUTIONAL: No fever, no malaise, no fatigue. HEENT: No recent visual problems or hearing problems. Denied any sore throat. CARDIOVASCULAR: No orthopnea, PND, no palpitations, no syncope. PULMONARY: No shortness of breath, no cough, no hemoptysis. GASTROINTESTINAL: No diarrhea, no nausea, no vomiting, no abdominal pain. Normoactive bowel sounds. NEUROLOGICAL: No headaches, no weakness, no numbness. HEMATOLOGICAL: Denies any bleeding or petechiae. GENITOURINARY: Denies any burning micturition, frequency, or urgency. MUSCULOSKELETAL/RHEUMATOLOGICAL: Denies any joint pain, swelling, or any muscle pain. ENDOCRINE: Denies any polyuria or polydipsia. Past Medical History Past Medical History: Chest Pain / Angina, COPD, GERD/Reflux, Hyperlipidemia, Hypertension, Musculoskeletal Disorder, Neurologic Disorder, Seizure Disorder, Skin Disorder, Thyroid Disorder Additional Past Medical History / Comment(s): Chronic back pain, , brain lesions negative for ms always, constipation, hypothyroidism in the past and off medications, spondylosis, menopause, seizure gastroparesis normally blood pressure is 70/30. 12/17/18 the pt admits to having chronic spinal pain/disc problems/neck pain. Pt admits to psorasis. History of Any Multi-Drug Resistant Organisms: MRSA Year Discovered:: 2011, MDRO Source:: urine Past Surgical History: Back Surgery, Section, Hysterectomy, Orthopedic Surgery, Tubal Ligation Additional Past Surgical History / Comment(s): knee, wrist, sarcodisis, vitamin d deficiency, neck surg, Smoking Status: Current every day smoker - Past Family History Father Family Medical History: No Reported History Additional Family Medical History / Comment(s): Patient states her father in his 20s as he was murdered. Mother Additional Family Medical History / Comment(s): Mother is alive at age 63 and suffers from Alzheimer's dementia and other "multiple problems." Sister(s) Additional Family Medical History / Comment(s): Patient had 2 sisters. One sister shot and killed herself. Patient has 3 brothers with no major medical problems. Medications and Allergies Home Medications Medication Instructions Recorded Confirmed Type Multivitamins, Thera [Multivitamin 1 tab PO DAILY 12/13/17 12/17/18 History (formulary)] Melatonin 10 mg PO HS 04/15/18 12/17/18 History Levothyroxine Sodium [Synthroid] 50 mcg PO DAILY 04/19/18 12/17/18 History Pantoprazole Sodium [Protonix] 40 mg PO DAILY 04/19/18 12/17/18 History Atorvastatin [Lipitor] 10 mg PO HS 30 Days #30 tab 04/28/18 12/17/18 Rx Gabapentin [Neurontin] 300 mg PO TID 30 Days #90 cap 04/28/18 12/17/18 Rx Aspirin [Adult Low Dose Aspirin EC] 81 mg PO DAILY 05/26/18 12/17/18 History Fluticasone/Salmeterol [Advair 1 puff INHALATION RT-BID 05/26/18 12/17/18 History 500-50 Diskus] Loratadine 10 mg PO DAILY PRN MDD ALT 05/26/18 12/17/18 History W/BENADRYL [facility]-3 Fatty Acids/Fish Oil [Fish 2 cap PO BID 05/26/18 12/17/18 History Oil 1,000 mg Softgel] Tiotropium 18 Mcg/Puff [Spiriva] 1 cap INHALATION RT-DAILY 05/26/18 12/17/18 History diphenhydrAMINE [Benadryl] 25 mg PO BID PRN MDD ALT W/CLARITIN 05/26/18 12/17/18 History traZODone HCL 150 mg PO HS 05/26/18 12/17/18 History Biotin 300 mcg PO DAILY 06/26/18 12/17/18 History Polyethylene Glycol 3350 [Miralax] 17 gm PO DAILY PRN 06/26/18 12/17/18 History Cyclobenzaprine [Flexeril] 10 mg PO TID PRN 12/17/18 12/17/18 History Fluticasone Nasal [place] [Flonase 2 spr EA NOSTRIL DAILY 12/17/18 12/17/18 History Nasal [place]] Ipratropium-Albuterol Nebulize 3 ml INHALATION RT-QID PRN 12/17/18 12/17/18 History [Duoneb 0.5 mg-3 mg/3 ml Soln] chlorproMAZINE HCL [Thorazine] 50 mg PO BID 12/17/18 12/17/18 History Allergies Allergy/AdvReac Type Severity Reaction Status Date / Time adhesive Allergy Severe Rash/Hives Verified 12/17/18 21:38 Corticosteroids Allergy Severe Hallucinati Verified 12/17/18 21:40 (Glucocorticoids) ons fluoxetine HCl [From Prozac] Allergy Severe Hallucinati Verified 12/17/18 21:40 ons ketorolac [From Toradol] Allergy Severe Rash/Hives, Verified 12/17/18 21:38 Itching latex Allergy Severe Rash/Hives Verified 12/17/18 21:40 olanzapine [From Zyprexa] Allergy Severe Hallucinati Verified 12/17/18 21:40 ons prednisone Allergy Severe Hallucinati Verified 12/17/18 21:40 ons venlafaxine Allergy Severe Hallucinati Verified 12/17/18 21:40 ons venom-honey bee Allergy Severe Anaphylaxis Verified 12/17/18 21:40 [bee venom (honey bee)] Physical Exam Vitals: Vital Signs Temp Pulse Pulse Resp BP BP Pulse Ox 12/18/18 06:32 97.9 F 63 16 129/62 12/17/18 23:23 60 12/17/18 23:10 97 F L 80 18 110/68 12/17/18 22:59 60 12/17/18 18:48 98.7 F 50 L 18 109/75 99 Intake and Output 12/17/18 12/18/18 12/18/18 22:59 06:59 14:59 Other: Weight 90.446 kg 54 kg GENERAL: The patient is alert and oriented x3, not in any acute distress. Thin built HEENT: Pupils are round and equally reacting to light. EOMI. No scleral icterus. No conjunctival pallor. Normocephalic, atraumatic. No pharyngeal erythema. No thyromegaly. CARDIOVASCULAR: S1 and S2 present. No murmurs, rubs, or gallops. PULMONARY: Chest is clear to auscultation, no wheezing or crackles. ABDOMEN: Soft, nontender, nondistended, normoactive bowel sounds. No palpable organomegaly. MUSCULOSKELETAL: No joint swelling or deformity. EXTREMITIES: No cyanosis, clubbing, or pedal edema. NEUROLOGICAL: Gross neurological examination did not reveal any focal deficits. SKIN: No rashes. Results CBC & Chem 7: 12/18/18 11:05 12/18/18 11:05 Labs: Abnormal Lab Results - Last 24 Hours (Table) 12/17/18 12/18/18 12/18/18 Range/Units 19:50 11:05 11:15 Cholesterol 202 H (<200) mg/dL LDL Cholesterol, Calc 121 H (0-99) mg/dL Ur Leukocyte Esterase Trace H (Negative) Urine Mucus Rare H (None) /hpf U Marijuana (THC) Screen Detected H (NotDetected) Assessment and Plan Assessment: Depression and suicidal ideation and other psychiatric illnesses, management as per side team Pseudoseizure, chronic as per patient. Not on any medication Nicotine dependence, patient is counseled and she agrees to the nicotine patch Chronic neck pain for one year and half and chronic back pain for 5 years as per patient, gait is normal Marijuana abuse, patient is counseled COPD, not in acute exacerbation History of chest pain/angina, possible coronary artery disease. Both an active issue Hyperlipidemia Hypertension Plan: This is a pleasant 48 years old female who presents with suicidal ideation. Medical consult has been requested for medical management. Patient looks like she has chronic problems including back and neck pain and pseudoseizure, patient however complains from new right foot pain. Right foot x-ray is ordered. On examination there is no signs of infection or abnormality.Labs and medication were reviewed.. Continue same treatment. Continue with symptomatic treatment. Resume home medication. Monitor lytes and vitals. DVT and GI prophylaxis. We will follow with the patient on as needed basis Thank you for consulting us, please feel free to contact us for any further question or clarification
[2018-12-18] MEDS: SYMBICORT 160-4.5 MCG INHALER INHALATION SCH ×2 (12:56→22:05)
[2018-12-18] MEDS: IPRATROPIUM 0.5 MG/2.5 ML NEBU INHALATION SCH ×5 (12:56→22:05)
--- NOTE | 2018-12-18 13:11 | XR ---
EXAMINATION TYPE: XR foot limited RT DATE OF EXAM: 12/18/2018 COMPARISON: NONE HISTORY: Pain TECHNIQUE: Two views are submitted. FINDINGS: The osseous structures are intact. There is no acute fracture or dislocation. Chronic appearing de formity of the head of the fifth metatarsal stable from previous associated with previous surgery. IMPRESSION: 1. No acute fracture or dislocation. If symptoms persist, follow-up exam in 7 to 10 days could be ob tained.
[2018-12-18 18:38] LABS: Hemoglobin A1C 6.1 % (4.0-6.0)
[2018-12-18] MEDS ORDERED: traZODone HCL 100 MG TAB PO SCH (21:00)
[2018-12-18] MEDS ORDERED: traZODone HCL 50 MG TAB PO SCH (21:00)
[2018-12-18] MEDS ORDERED: ATORVASTATIN 10 MG TAB PO SCH (21:00)
[2018-12-18] MEDS: ATORVASTATIN 10 MG TAB PO SCH (21:12)
[2018-12-18] MEDS: MELATONIN 5 MG TABLET PO SCH (21:12)
[2018-12-19] MEDS: LEVOTHYROXINE 50 MCG TAB PO SCH (05:45)
[2018-12-19] MEDS: POLYETHYLENE GLYCOL 3350 17 GM POWD.PACK PO SCH (08:55)
[2018-12-19] MEDS: GABAPENTIN 300 MG CAP PO SCH ×4 (08:56→22:03)
[2018-12-19] MEDS: ASPIRIN 81 MG PO SCH (08:56)
[2018-12-19] MEDS: MULTIVITAMINS, THERA 1 EACH TAB PO SCH (08:56)
[2018-12-19] MEDS: NICOTINE 21MG/24HR PATCH TRANSDERM SCH (08:56)
[2018-12-19] MEDS: traZODone HCL 50 MG TAB PO SCH (08:56)
[2018-12-19] MEDS: LORazepam 1 MG TAB PO PRN (08:56)
[2018-12-19] MEDS: PANTOPRAZOLE 40 MG TABLET PO SCH (08:56)
--- NOTE | 2018-12-19 10:10 | P.PN ---
Progress Note - Text Progress Note Date: 12/19/18 Interval History: Patient is a 48-year-old female who was seen this morning and she states that she slept well last evening and did not feel sleepy during the day with the trazodone. She reports that she is not feeling dizzy or lightheaded. Patient states that she continues to feel like a "human vibrator". She asked about the x-ray to her foot and states that she has splinters in her foot and needs to have surgery to have them removed. Patient denies any suicidal ideation and states that she attended no groups yesterday because she dislikes group therapy and slept for most of the day. Mental Status: Appearance/Attitude: Patient is neatly and appropriately dressed, makes eye contact and is cooperative Behavior: Patient does not exhibit any psychomotor agitation or retardation Speech/Language: Patient's speech is spontaneous of normal volume and rhythm and she is coherent Thought Process: Patient is goal-directed there is no evidence of loose association or flight of ideas Thought Content: Patient denies any auditory or visual hallucinations and no delusions or paranoid ideation or elicited. Patient continues to verbalize that she is anxious and describes herself as a "human vibrator", stating that she is always feeling shaky on the inside. She states that she sees no change with the addition of an a.m. dose of Desyrel. She reports that she slept yesterday all day and last evening and has been eating at least 50% of her meals. Patient complains of having symptoms of a urinary tract infection. She also continues to complain of foot pain due to splinters in her foot. Suicidal/Homicidal Ideation: Patient denies any current suicidal or homicidal ideation Sensorium/Cognition: Patient is alert and oriented to person, place, and time and her recent and remote memory are grossly intact Mood/Affect: Patient's mood remains anxious, slightly depressed and her affect is appropriate to her mood Insight/Judgment: Patient's insight and judgment are fair Assessment: Patient states that she continues to feel anxious, shaking inside and states that she did sleep well and has no side effects from the medication. She is complaining that she has a urinary tract infection and continues to complain of left foot pain, the x-ray showed no fractures or other injuries. Sh e states that she has splinters in her foot the need to really removed surgically. Patient reports that she is not attending group therapy because she dislikes groups but does attend some of the activity therapy groups. Patient states that she is eating well and denies any current suicidal ideation. Plan: Patient will continue on trazodone 50 mg in the morning and will increase her dose at night to 200 mg at bedtime and the dose in the morning can be increased to 75 mg over the weekend should the patient continued to complain of anxiety. Patient will continue on melatonin 10 mg at bedtime. We'll also order a urine culture as the patient is complaining of pain on urination. Patient was encouraged to attend groups and activities and participate. Patient continues to require hospitalization to further stabilize her mood.
[2018-12-19] MEDS: IPRATROPIUM-ALBUTEROL 3 ML NEB INHALATION PRN (10:37)
[2018-12-19] MEDS: IPRATROPIUM 0.5 MG/2.5 ML NEBU INHALATION SCH ×3 (10:37→20:59)
[2018-12-19] MEDS: SYMBICORT 160-4.5 MCG INHALER INHALATION SCH ×2 (10:37→20:59)
[2018-12-19 11:29] VITALS: BP 99/51; PULSE 89
[2018-12-19] MEDS ORDERED: LORazepam 0.5 MG TAB PO PRN (11:39)
[2018-12-19] MEDS: MELATONIN 5 MG TABLET PO SCH (22:02)
[2018-12-19] MEDS: ATORVASTATIN 10 MG TAB PO SCH (22:02)
[2018-12-19] MEDS: traZODone HCL 100 MG TAB PO SCH (22:03)
[2018-12-20] MEDS: IPRATROPIUM 0.5 MG/2.5 ML NEBU INHALATION SCH ×4 (08:26→19:26)
[2018-12-20] MEDS: ASPIRIN 81 MG PO SCH (09:06)
[2018-12-20] MEDS: SYMBICORT 160-4.5 MCG INHALER INHALATION SCH ×2 (09:06→21:41)
[2018-12-20] MEDS: NICOTINE 21MG/24HR PATCH TRANSDERM SCH (09:06)
[2018-12-20] MEDS: PANTOPRAZOLE 40 MG TABLET PO SCH (09:06)
[2018-12-20] MEDS: LEVOTHYROXINE 50 MCG TAB PO SCH (09:06)
[2018-12-20] MEDS: POLYETHYLENE GLYCOL 3350 17 GM POWD.PACK PO SCH (09:07)
[2018-12-20] MEDS: traZODone HCL 50 MG TAB PO SCH (09:07)
[2018-12-20] MEDS: GABAPENTIN 300 MG CAP PO SCH ×3 (09:07→21:41)
[2018-12-20] MEDS: MULTIVITAMINS, THERA 1 EACH TAB PO SCH (09:07)
--- NOTE | 2018-12-20 09:20 | P.PN ---
Progress Note - Text Interval history: The patient is found in the hallway demanding to speak with me. She was observed being loud and intrusive in the hallway. She is admitted to the mental health unit with a diagnosis of major depressive disorder with psychotic features and PTSD. She spends several minutes stating that she was accused of overdosing here in the hospital which is not true because she is only using prescribed medication and she states that she had a seizure which nobody is attending to. Staff indicates she may have a history of nonepileptic seizures. The patient reports numerous times she will not be taking any medications while appear because she is angry. She has repeatedly call her to come pick her up and she is demanding to be discharged. Mental status exam: The patient is a thin female she is dressed in her own clothing she wears eyeglasses hygiene grooming adequate. Speech is fluent she is pressured verbose. She is intrusive in conversation and it was challenging to redirect her. She states that she is being accused of overdosing on the mental health unit which angers her. She states that she is having seizures which nobody is addressing. She endorses having auditory hallucinations but refuses to describe them. She refuses to answer other questions during this interaction. She is hyperactive and frequently moves position while seated. She terminates the session on her own by getting up and leaving shouting things as she exits the room. Insight and judgment appear to be impaired. She demonstrated no verbal or physical aggressiveness although she appears agitated. Plan: The patient is being offered trazodone. The suggestion was to titrate the dose further if needed. The patient is refusing medication. She asks to leave the hospital now. She was informed that she is able to withdrawal her voluntary status but would not be discharged at this time. She does not appear to be appropriate for discharge as she is agitated her speech is pressured and she's not able to engage in a calm and rational conversation at this time. Vital signs reviewed. We will monitor her for safety. She is encouraged to participate in the milieu although she is refusing.
[2018-12-20] MEDS: ATORVASTATIN 10 MG TAB PO SCH (21:41)
[2018-12-20] MEDS: traZODone HCL 100 MG TAB PO SCH (21:41)
[2018-12-20] MEDS: MELATONIN 5 MG TABLET PO SCH (21:41)
[2018-12-21] MEDS: LEVOTHYROXINE 50 MCG TAB PO SCH ×2 (06:16→06:19)
[2018-12-21] MEDS: IPRATROPIUM 0.5 MG/2.5 ML NEBU INHALATION SCH ×4 (07:37→20:35)
[2018-12-21] MEDS: ASPIRIN 81 MG PO SCH (09:32)
[2018-12-21] MEDS: GABAPENTIN 300 MG CAP PO SCH ×3 (09:32→21:51)
[2018-12-21] MEDS: SYMBICORT 160-4.5 MCG INHALER INHALATION SCH ×2 (09:32→20:35)
[2018-12-21] MEDS: PANTOPRAZOLE 40 MG TABLET PO SCH (09:32)
[2018-12-21] MEDS: NICOTINE 21MG/24HR PATCH TRANSDERM SCH (09:33)
[2018-12-21] MEDS: MULTIVITAMINS, THERA 1 EACH TAB PO SCH (09:33)
[2018-12-21] MEDS: POLYETHYLENE GLYCOL 3350 17 GM POWD.PACK PO SCH (09:33)
[2018-12-21] MEDS: traZODone HCL 50 MG TAB PO SCH (09:38)
--- NOTE | 2018-12-21 10:35 | P.PN ---
Progress Note - Text Interval history: The patient is found in the hallway she follows me to an interview room. She states that she will continue to refuse medication as long as she is here. She states her plan is to be discharged from this hospital and go to [facility] where they will help her. She states that the staff told her that she overdosed here and if that happened she doesn't feel safe. She states that our staff does not know the difference between overdosing and a seizure. Staff report that the patient's visited last evening and was very disruptive on the unit. He apparently made loud derogatory comments about the facility and staff. This was disruptive to other patients visiting time. Staff felt that the patient became more agitated after the visiting with her . Mental status exam: The patient is a thin female she is dressed in her own clothing. She seated in the chair calmly. She has spontaneous speech. She is quite argumentative. She again tries to rationalize not taking any medication and abstaining from group therapy. Efforts were made to help her cognitively reframe the situation she was concerned with but she refuses to engage. She quickly dismisses questions regarding suicidal thoughts homicidal thoughts or psychosis. She demonstrates paranoid thinking. Insight and judgm ent impaired. She demonstrated no verbal or physical aggressiveness. Plan: The patient is demonstrating oppositional behavior at this time. She is refusing medication. Efforts were made to try to get her to engage again with a therapeutic direction. Vital signs reviewed. We will continue to monitor her for safety.
[2018-12-21] MEDS: ATORVASTATIN 10 MG TAB PO SCH (21:50)
[2018-12-21] MEDS: traZODone HCL 100 MG TAB PO SCH (21:51)
[2018-12-21] MEDS: MELATONIN 5 MG TABLET PO SCH (21:51)
[2018-12-22] MEDS: LEVOTHYROXINE 50 MCG TAB PO SCH (05:35)
[2018-12-22] MEDS: GABAPENTIN 300 MG CAP PO SCH (09:01)
[2018-12-22] MEDS: PANTOPRAZOLE 40 MG TABLET PO SCH (09:01)
[2018-12-22] MEDS: NICOTINE 21MG/24HR PATCH TRANSDERM SCH (09:01)
[2018-12-22] MEDS: ASPIRIN 81 MG PO SCH (09:01)
[2018-12-22] MEDS: MULTIVITAMINS, THERA 1 EACH TAB PO SCH (09:01)
[2018-12-22] MEDS: POLYETHYLENE GLYCOL 3350 17 GM POWD.PACK PO SCH (09:02)
[2018-12-22] MEDS: traZODone HCL 50 MG TAB PO SCH (09:02)
[2018-12-22] MEDS: SYMBICORT 160-4.5 MCG INHALER INHALATION SCH (09:46)
[2018-12-22] MEDS: IPRATROPIUM 0.5 MG/2.5 ML NEBU INHALATION SCH (09:46)
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
== END 2018-12-22 11:30 | disposition home or self-care (01) | DRG 885 ==
LOC: EC 18:38 → 3MHU 20:51
PROVIDERS: ADMIT Psychiatry & Neurology Psychiatry; ATTEND Psychiatry & Neurology Psychiatry
DX: F32.3 Major depressive disorder, single episode, severe with psychotic features (principal); E03.9 Hypothyroidism, unspecified; E78.5 Hyperlipidemia, unspecified; F12.10 Cannabis abuse, uncomplicated; Z71.51 Drug abuse counseling and surveillance of drug abuser; Z71.6 Tobacco abuse counseling; F17.210 Nicotine dependence, cigarettes, uncomplicated; F41.0 Panic disorder [episodic paroxysmal anxiety]; F43.10 Post-traumatic stress disorder, unspecified; F44.5 Conversion disorder with seizures or convulsions; G89.29 Other chronic pain; I10 Essential (primary) hypertension; I25.10 Atherosclerotic heart disease of native coronary artery without angina pectoris; J44.9 Chronic obstructive pulmonary disease, unspecified; K21.9 Gastro-esophageal reflux disease without esophagitis; K31.84 Gastroparesis; Z91.5 Personal history of self-harm; Z79.82 Long term (current) use of aspirin; Z79.890 Hormone replacement therapy; Z79.899 Other long term (current) drug therapy; Z81.8 Family history of other mental and behavioral disorders; Z82.0 Family history of epilepsy and other diseases of the nervous system; Z90.711 Acquired absence of uterus with remaining cervical stump; Z91.19 Patient's noncompliance with other medical treatment and regimen; T50.996A Underdosing of other drugs, medicaments and biological substances, initial encounter; Z91.120 Patient's intentional underdosing of medication regimen due to financial hardship; Z88.5 Allergy status to narcotic agent; Z88.8 Allergy status to other drugs, medicaments and biological substances; Z91.030 Bee allergy status; Z91.040 Latex allergy status; M54.2 Cervicalgia; M47.9 Spondylosis, unspecified; L40.9 Psoriasis, unspecified; D86.9 Sarcoidosis, unspecified
CPT/HCPCS: 80053; 80061; 80306; 81001; 82075; 82248; 83036; 84443; 84703; 85025; 94640; 99285

== ENCOUNTER 2019-01-24 18:07 | Inpatient (IN) | payer MEDICARE ==
[2019-01-24 18:35] LABS: Glucose,Whole Blood 128 mg/dL (75-99)
[2019-01-24] MEDS ORDERED: SODIUM CHLORIDE 0.9% 1,000 ML IV ONE (18:39)
[2019-01-24 18:40] LABS: Basophils % (A) 0 %; Eosinophils # (A) 0.1 k/uL (0-0.7); Eosinophils % (A) 1 %; HGB 12.3 gm/dL (11.4-16.0); Lymphocytes # (A) 2.1 k/uL (1.0-4.8); Lymphocytes % (A) 31 %; MCHC 33.3 g/dL (31.0-37.0); MCV 90.3 fL (80.0-100.0); Mean Platelet Volume 8.1; Monocytes # (A) 0.3 k/uL (0-1.0); Monocytes % (A) 5 %; Neutrophils # (A) 4.1 k/uL (1.3-7.7); Neutrophils % (A) 61 %; Platelet Count 208 k/uL (150-450); RDW 15.2 % (11.5-15.5); WBC 6.8 k/uL (3.8-10.6)
--- NOTE | 2019-01-24 18:42 | ED ---
General Adult HPI - General Chief complaint: Overdose Stated complaint: OVERDOSE, POSS PSYCH EVAL Time Seen by Provider: 01/24/19 18:26 Source: police, EMS Mode of arrival: EMS Limitations: no limitations - History of Present Illness Initial comments: 48-year-old female presenting after intentional overdose. Patient states that she has been arguing with her over the last 3 days, today she told him that she wanted a divorce, and he told her that he was she was . She states after that she took approximately 46 gabapentin, 10 trazodone, and an unknown amount of Thorazine. She also drank alcohol and smoked marijuana. She admits to suicidal ideations and a history of suicide attempts in the past. She denies any trauma or physical abuse by the . Currently her only complaints are a dry mouth and somnolence. PATIENT DOES NOT WANT HER TO VISIT OR BE INVOLVED IN HER CARE. - Related Data Home Medications Medication Instructions Recorded Confirmed Multivitamins, Thera [Multivitamin 1 tab PO DAILY 12/13/17 12/17/18 (formulary)] Melatonin 10 mg PO HS 04/15/18 12/17/18 Levothyroxine Sodium [Synthroid] 50 mcg PO DAILY 04/19/18 12/17/18 Pantoprazole Sodium [Protonix] 40 mg PO DAILY 04/19/18 12/17/18 Aspirin [Adult Low Dose Aspirin EC] 81 mg PO DAILY 05/26/18 12/17/18 Fluticasone/Salmeterol [Advair 1 puff INHALATION RT-BID 05/26/18 12/17/18 500-50 Diskus] Loratadine 10 mg PO DAILY PRN MDD ALT 05/26/18 12/17/18 W/BENADRYL [place]-3 Fatty Acids/Fish Oil [Fish 2 cap PO BID 05/26/18 12/17/18 Oil 1,000 mg Softgel] Tiotropium 18 Mcg/Puff [Spiriva] 1 cap INHALATION RT-DAILY 05/26/18 12/17/18 diphenhydrAMINE [Benadryl] 25 mg PO BID PRN MDD ALT W/CLARITIN 05/26/18 12/17/18 traZODone HCL 150 mg PO HS 05/26/18 12/17/18 Biotin 300 mcg PO DAILY 06/26/18 12/17/18 Polyethylene Glycol 3350 [Miralax] 17 gm PO DAILY PRN 06/26/18 12/17/18 Fluticasone Nasal [place] [Flonase 2 spr EA NOSTRIL DAILY 12/17/18 12/17/18 Nasal [place]] Ipratropium-Albuterol Nebulize 3 ml INHALATION RT-QID PRN 12/17/18 12/17/18 [Duoneb 0.5 mg-3 mg/3 ml Soln] chlorproMAZINE HCL [Thorazine] 50 mg PO BID 12/17/18 12/17/18 Previous Rx's Medication Instructions Recorded Atorvastatin [Lipitor] 10 mg PO HS 30 Days #30 tab 04/28/18 Gabapentin [Neurontin] 300 mg PO TID 30 Days #90 cap 04/28/18 Cyclobenzaprine [Flexeril] 10 mg PO TID PRN #20 tab 12/22/18 Allergies Allergy/AdvReac Type Severity Reaction Status Date / Time adhesive Allergy Severe Rash/Hives Verified 12/17/18 21:38 Corticosteroids Allergy Severe Hallucinati Verified 12/17/18 21:40 (Glucocorticoids) ons fluoxetine HCl [From Prozac] Allergy Severe Hallucinati Verified 12/17/18 21:40 ons ketorolac [From Toradol] Allergy Severe Rash/Hives, Verified 12/17/18 21:38 Itching latex Allergy Severe Rash/Hives Verified 12/17/18 21:40 olanzapine [From Zyprexa] Allergy Severe Hallucinati Verified 12/17/18 21:40 ons prednisone Allergy Severe Hallucinati Verified 12/17/18 21:40 ons venlafaxine Allergy Severe Hallucinati Verified 12/17/18 21:40 ons venom-honey bee Allergy Severe Anaphylaxis Verified 12/17/18 21:40 [bee venom (honey bee)] Review of Systems ROS Statement: Those systems with pertinent positive or pertinent negative responses have been documented in the HPI. Review of Systems Constitutional: Denies fever, chills Eyes: Denies change in vision, Denies pain Ears, nose, mouth, throat: Denies headaches, Denies sore throat Cardiovascular: Denies chest pain. Denies palpitations Respiratory: Denies shortness of breath, Denies cough Gastrointestinal: Denies abdominal pain. Denies nausea, vomiting, diarrhea. Genitourinary: Denies hematuria, Denies infections Musculoskeletal: Denies pain, Denies swelling Integumentary: Denies rash Neurological: Denies headache, focal weakness, focal numbness Psychiatric: Positive depression and suicidal ideations Hematologic/Lymphatic: Denies easy bleeding or bruising ROS Other: All systems not noted in ROS Statement are negative. Past Medical History Past Medical History: Chest Pain / Angina, COPD, GERD/Reflux, Hyperlipidemia, Hypertension, Musculoskeletal Disorder, Neurologic Disorder, Seizure Disorder, Skin Disorder, Thyroid Disorder Additional Past Medical History / Comment(s): Chronic back pain, , brain lesions negative for ms always, constipation, hypothyroidism in the past and off medications, spondylosis, menopause, seizure gastroparesis normally blood pressure is 70/30. 12/17/18 the pt admits to having chronic spinal pain/disc problems/neck pain. Pt admits to psorasis. History of Any Multi-Drug Resistant Organisms: MRSA Date of last positivie culture/infection: 2011, MDRO Source:: urine Past Surgical History: Back Surgery, Section, Hysterectomy, Orthopedic Surgery, Tubal Ligation Additional Past Surgical History / Comment(s): knee, wrist, sarcodisis, vitamin d deficiency, neck surg, Past Psychological History: Anxiety, Bipolar, Panic Disorder, PTSD, Schizophrenia Smoking Status: Current every day smoker Past Alcohol Use History: None Reported Past Drug Use History: Marijuana, Prescription Drug Abuse - Past Family History Father Family Medical History: No Reported History Additional Family Medical History / Comment(s): Patient states her father in his 20s as he was murdered. Mother Additional Family Medical History / Comment(s): Mother is alive at age 63 and suffers from Alzheimer's dementia and other "multiple problems." Sister(s) Additional Family Medical History / Comment(s): Patient had 2 sisters. One sister shot and killed herself. Patient has 3 brothers with no major medical problems. General Exam - General Exam Comments Initial Comments: General: Awake, alert, No acute Distress HENT: Normocephalic. Atraumatic Eyes: PERRL. EOMI. No scleral icterus. No injected conjunctiva. Dry mucous membranes Neck: Full ROM Chest/Lungs: Clear to auscultation bilaterally. No wheezing, rhonchi, or rales Cardiac: Regular rate, rhythm. No murmurs or rubs Abdomen/GI: Soft, nontender, nondistended. No rebound, guarding, or rigidity. Musculoskeletal: Full ROM Skin: Warm, dry, intact Neurologic: A/Ox3, no weakness, no sensory deficit, no abnormal gait, no coordination deficit. GCS 15. Slurred speech. Somnolent. Psych: Suicidal. Depressed. Limitations: no limitations Course Vital Signs 01/24/19 01/24/19 01/24/19 18:12 18:53 19:08 Temperature 98.6 F Pulse Rate 103 H 93 Respiratory 14 Rate Blood Pressure 99/60 128/65 O2 Sat by Pulse 94 L 96 97 Oximetry 01/24/19 01/24/19 01/24/19 19:10 19:30 20:00 Temperature Pulse Rate 90 74 72 Respiratory 16 16 Rate Blood Pressure 128/65 149/84 101/47 O2 Sat by Pulse 95 100 100 Oximetry 01/24/19 01/24/19 01/24/19 20:30 21:27 21:45 Temperature Pulse Rate 79 79 79 Respiratory 77 H 16 16 Rate Blood Pressure 107/62 139/87 119/69 O2 Sat by Pulse 100 100 100 Oximetry 01/24/19 01/24/19 01/24/19 22:15 23:00 23:30 Temperature Pulse Rate 80 78 80 Respiratory 14 14 14 Rate Blood Pressure 110/62 122/72 110/63 O2 Sat by Pulse 100 100 100 Oximetry 01/25/19 01/25/19 00:00 00:30 Temperature Pulse Rate 75 77 Respiratory 14 14 Rate Blood Pressure 107/65 112/67 O2 Sat by Pulse 100 100 Oximetry EKG Findings - EKG Comments: EKG Findings:: EKG shows normal sinus rhythm at a rate of 94 bpm and a prolonged QT. MO interval 160 ms. QRS duration 80 ms. QT/QTC 382/477 ms. Procedures - Intubation Sedative: Etomidate Paralytic: Succinylcholine Laryngoscope: Dago Size: 3 ET Tube Size: 8 ET Tube Uncuffed: No Tube Secured Depth (cm): 23 Tube Secured Location: teeth Tube Placement Confirmation: visualized tube passing through cords, equal breath sounds bilaterally, no breath sounds over epigastrium, confirmation by capnometry Patient Tolerated Procedure: well, no complications Intubation Complications: none Medical Decision Making - Medical Decision Making 48-year-old female presenting after intentional overdose. On initial exam the patient is somnolent but easily awakens and interacts. She is able to give history however she is unsure of the time of her ingestion. She has no external signs of trauma on her exam. Patient became increasingly more somnolent while in the emergency department. She required intubation. Her laboratory workup was unremarkable and her CT head was negative. She required 2 doses of Ativan prior to going to CT for agitation. I spoke with Dr. Avila as well as Dr. Rouse who were both agreeable to admission. Staff spoke with poison control who recommended electrolyte stabilization and monitoring. Patient currently stable for transfer to the ICU. PATIENT DOES NOT WANT HER TO VISIT OR BE INVOLVED IN HER CARE. - Lab Data Result diagrams: 01/24/19 18:20 01/24/19 18:20 Lab Results 01/24/19 01/24/19 01/24/19 Range/Units 18:20 18:20 18:20 WBC 6.8 (3.8-10.6) k/uL RBC 4.10 (3.80-5.40) m/uL Hgb 12.3 (11.4-16.0) gm/dL Hct 37.0 (34.0-46.0) % MCV 90.3 (80.0-100.0) fL MCH 30.0 (25.0-35.0) pg MCHC 33.3 (31.0-37.0) g/dL RDW 15.2 (11.5-15.5) % Plt Count 208 (150-450) k/uL Neutrophils % 61 % Lymphocytes % 31 % Monocytes % 5 % Eosinophils % 1 % Basophils % 0 % Neutrophils # 4.1 (1.3-7.7) k/uL Lymphocytes # 2.1 (1.0-4.8) k/uL Monocytes # 0.3 (0-1.0) k/uL Eosinophils # 0.1 (0-0.7) k/uL Basophils # 0.0 (0-0.2) k/uL Sample Site ABG pH (7.35-7.45) ABG pCO2 (35-45) mmHg ABG pO2 (83-108) mmHg ABG HCO3 (21-25) mmol/L ABG O2 Saturation (94-97) % ABG Base Excess mmol/L Jesus Test FiO2 % Sodium 141 (137-145) mmol/L Potassium 4.1 (3.5-5.1) mmol/L Chloride 106 (98-107) mmol/L Carbon Dioxide 23 (22-30) mmol/L Anion Gap 12 mmol/L BUN 10 (7-17) mg/dL Creatinine 0.97 (0.52-1.04) mg/dL Est GFR (CKD-EPI)AfAm 81 (>60 ml/min/1.73 sqM) Est GFR (CKD-EPI)NonAf 70 (>60 ml/min/1.73 sqM) Glucose 148 H (74-99) mg/dL POC Glucose (mg/dL) (75-99) mg/dL POC Glu Crane Man ID Lactic Ac Sepsis Rflx Plasma Lactic Acid Enrique 2.4 H* (0.7-2.0) mmol/L Calcium 9.7 (8.4-10.2) mg/dL Magnesium (1.6-2.3) mg/dL Total Bilirubin 0.3 (0.2-1.3) mg/dL AST 28 (14-36) U/L ALT 36 (9-52) U/L Alkaline Phosphatase 70 (38-126) U/L Ammonia <9 (<30) umol/L Total Protein 7.0 (6.3-8.2) g/dL Albumin 4.4 (3.5-5.0) g/dL Lipase (23-300) U/L HCG, Qual Urine Color Urine Appearance (Clear) Urine pH (5.0-8.0) Ur Specific Wylie (1.001-1.035) Urine Protein (Negative) Urine Glucose (UA) (Negative) Urine Ketones (Negative) Urine Blood (Negative) Urine Nitrite (Negative) Urine Bilirubin (Negative) Urine Urobilinogen (<2.0) mg/dL Ur Leukocyte Esterase (Negative) Salicylates <1.0 mg/dL Urine Opiates Screen (NotDetected) Ur Oxycodone Screen (NotDetected) Urine Methadone Screen (NotDetected) Ur Propoxyphene Screen (NotDetected) Acetaminophen <10.0 ug/mL Ur Barbiturates Screen (NotDetected) U Tricyclic Antidepress (NotDetected) Ur Phencyclidine Scrn (NotDetected) Ur Amphetamines Screen (NotDetected) U Methamphetamines Scrn (NotDetected) U Benzodiazepines Scrn (NotDetected) Urine Cocaine Screen (NotDetected) U Marijuana (THC) Screen (NotDetected) Serum Alcohol 110 mg/dL 01/24/19 01/24/19 01/24/19 Range/Units 18:20 18:20 18:33 WBC (3.8-10.6) k/uL RBC (3.80-5.40) m/uL Hgb (11.4-16.0) gm/dL Hct (34.0-46.0) % MCV (80.0-100.0) fL MCH (25.0-35.0) pg MCHC (31.0-37.0) g/dL RDW (11.5-15.5) % Plt Count (150-450) k/uL Neutrophils % % Lymphocytes % % Monocytes % % Eosinophils % % Basophils % % Neutrophils # (1.3-7.7) k/uL Lymphocytes # (1.0-4.8) k/uL Monocytes # (0-1.0) k/uL Eosinophils # (0-0.7) k/uL Basophils # (0-0.2) k/uL Sample Site ABG pH (7.35-7.45) ABG pCO2 (35-45) mmHg ABG pO2 (83-108) mmHg ABG HCO3 (21-25) mmol/L ABG O2 Saturation (94-97) % ABG Base Excess mmol/L Jesus Test FiO2 % Sodium (137-145) mmol/L Potassium (3.5-5.1) mmol/L Chloride (98-107) mmol/L Carbon Dioxide (22-30) mmol/L Anion Gap mmol/L BUN (7-17) mg/dL Creatinine (0.52-1.04) mg/dL Est GFR (CKD-EPI)AfAm (>60 ml/min/1.73 sqM) Est GFR (CKD-EPI)NonAf (>60 ml/min/1.73 sqM) Glucose (74-99) mg/dL POC Glucose (mg/dL) 128 H (75-99) mg/dL POC Glu Crane Man ID Enedina Hudson Lactic Ac Sepsis Rflx Plasma Lactic Acid Enrique (0.7-2.0) mmol/L Calcium (8.4-10.2) mg/dL Magnesium 2.1 (1.6-2.3) mg/dL Total Bilirubin (0.2-1.3) mg/dL AST (14-36) U/L ALT (9-52) U/L Alkaline Phosphatase (38-126) U/L Ammonia (<30) umol/L Total Protein (6.3-8.2) g/dL Albumin (3.5-5.0) g/dL Lipase 67 (23-300) U/L HCG, Qual Not Detected Urine Color Urine Appearance (Clear) Urine pH (5.0-8.0) Ur Specific Wylie (1.001-1.035) Urine Protein (Negative) Urine Glucose (UA) (Negative) Urine Ketones (Negative) Urine Blood (Negative) Urine Nitrite (Negative) Urine Bilirubin (Negative) Urine Urobilinogen (<2.0) mg/dL Ur Leukocyte Esterase (Negative) Salicylates mg/dL Urine Opiates Screen (NotDetected) Ur Oxycodone Screen (NotDetected) Urine Methadone Screen (NotDetected) Ur Propoxyphene Screen (NotDetected) Acetaminophen ug/mL Ur Barbiturates Screen (NotDetected) U Tricyclic Antidepress (NotDetected) Ur Phencyclidine Scrn (NotDetected) Ur Amphetamines Screen (NotDetected) U Methamphetamines Scrn (NotDetected) U Benzodiazepines Scrn (NotDetected) Urine Cocaine Screen (NotDetected) U Marijuana (THC) Screen (NotDetected) Serum Alcohol mg/dL 01/24/19 01/24/19 01/24/19 Range/Units 19:25 19:30 19:30 WBC (3.8-10.6) k/uL RBC (3.80-5.40) m/uL Hgb (11.4-16.0) gm/dL Hct (34.0-46.0) % MCV (80.0-100.0) fL MCH (25.0-35.0) pg MCHC (31.0-37.0) g/dL RDW (11.5-15.5) % Plt Count (150-450) k/uL Neutrophils % % Lymphocytes % % Monocytes % % Eosinophils % % Basophils % % Neutrophils # (1.3-7.7) k/uL Lymphocytes # (1.0-4.8) k/uL Monocytes # (0-1.0) k/uL Eosinophils # (0-0.7) k/uL Basophils # (0-0.2) k/uL Sample Site ABG pH (7.35-7.45) ABG pCO2 (35-45) mmHg ABG pO2 (83-108) mmHg ABG HCO3 (21-25) mmol/L ABG O2 Saturation (94-97) % ABG Base Excess mmol/L Jesus Test FiO2 % Sodium (137-145) mmol/L Potassium (3.5-5.1) mmol/L Chloride (98-107) mmol/L Carbon Dioxide (22-30) mmol/L Anion Gap mmol/L BUN (7-17) mg/dL Creatinine (0.52-1.04) mg/dL Est GFR (CKD-EPI)AfAm (>60 ml/min/1.73 sqM) Est GFR (CKD-EPI)NonAf (>60 ml/min/1.73 sqM) Glucose (74-99) mg/dL POC Glucose (mg/dL) (75-99) mg/dL POC Glu Crane Man ID Lactic Ac Sepsis Rflx Y Plasma Lactic Acid Enrique (0.7-2.0) mmol/L Calcium (8.4-10.2) mg/dL Magnesium (1.6-2.3) mg/dL Total Bilirubin (0.2-1.3) mg/dL AST (14-36) U/L ALT (9-52) U/L Alkaline Phosphatase (38-126) U/L Ammonia (<30) umol/L Total Protein (6.3-8.2) g/dL Albumin (3.5-5.0) g/dL Lipase (23-300) U/L HCG, Qual Urine Color Yellow Urine Appearance Clear (Clear) Urine pH 6.0 (5.0-8.0) Ur Specific Wylie 1.007 (1.001-1.035) Urine Protein Negative (Negative) Urine Glucose (UA) Negative (Negative) Urine Ketones Negative (Negative) Urine Blood Negative (Negative) Urine Nitrite Negative (Negative) Urine Bilirubin Negative (Negative) Urine Urobilinogen <2.0 (<2.0) mg/dL Ur Leukocyte Esterase Negative (Negative) Salicylates mg/dL Urine Opiates Screen Not Detected (NotDetected) Ur Oxycodone Screen Not Detected (NotDetected) Urine Methadone Screen Not Detected (NotDetected) Ur Propoxyphene Screen Not Detected (NotDetected) Acetaminophen ug/mL Ur Barbiturates Screen Not Detected (NotDetected) U Tricyclic Antidepress Not Detected (NotDetected) Ur Phencyclidine Scrn Not Detected (NotDetected) Ur Amphetamines Screen Not Detected (NotDetected) U Methamphetamines Scrn Not Detected (NotDetected) U Benzodiazepines Scrn Detected H (NotDetected) Urine Cocaine Screen Not Detected (NotDetected) U Marijuana (THC) Screen Detected H (NotDetected) Serum Alcohol mg/dL 01/24/19 Range/Units 20:45 WBC (3.8-10.6) k/uL RBC (3.80-5.40) m/uL Hgb (11.4-16.0) gm/dL Hct (34.0-46.0) % MCV (80.0-100.0) fL MCH (25.0-35.0) pg MCHC (31.0-37.0) g/dL RDW (11.5-15.5) % Plt Count (150-450) k/uL Neutrophils % % Lymphocytes % % Monocytes % % Eosinophils % % Basophils % % Neutrophils # (1.3-7.7) k/uL Lymphocytes # (1.0-4.8) k/uL Monocytes # (0-1.0) k/uL Eosinophils # (0-0.7) k/uL Basophils # (0-0.2) k/uL Sample Site Left Radial ABG pH 7.33 L (7.35-7.45) ABG pCO2 45 (35-45) mmHg ABG pO2 230 H (83-108) mmHg ABG HCO3 24 (21-25) mmol/L ABG O2 Saturation 99.4 H (94-97) % ABG Base Excess -2.4 mmol/L Jesus Test Yes FiO2 100 % Sodium (137-145) mmol/L Potassium (3.5-5.1) mmol/L Chloride (98-107) mmol/L Carbon Dioxide (22-30) mmol/L Anion Gap mmol/L BUN (7-17) mg/dL Creatinine (0.52-1.04) mg/dL Est GFR (CKD-EPI)AfAm (>60 ml/min/1.73 sqM) Est GFR (CKD-EPI)NonAf (>60 ml/min/1.73 sqM) Glucose (74-99) mg/dL POC Glucose (mg/dL) (75-99) mg/dL POC Glu Crane Man ID Lactic Ac Sepsis Rflx Plasma Lactic Acid Enrique (0.7-2.0) mmol/L Calcium (8.4-10.2) mg/dL Magnesium (1.6-2.3) mg/dL Total Bilirubin (0.2-1.3) mg/dL AST (14-36) U/L ALT (9-52) U/L Alkaline Phosphatase (38-126) U/L Ammonia (<30) umol/L Total Protein (6.3-8.2) g/dL Albumin (3.5-5.0) g/dL Lipase (23-300) U/L HCG, Qual Urine Color Urine Appearance (Clear) Urine pH (5.0-8.0) Ur Specific Wylie (1.001-1.035) Urine Protein (Negative) Urine Glucose (UA) (Negative) Urine Ketones (Negative) Urine Blood (Negative) Urine Nitrite (Negative) Urine Bilirubin (Negative) Urine Urobilinogen (<2.0) mg/dL Ur Leukocyte Esterase (Negative) Salicylates mg/dL Urine Opiates Screen (NotDetected) Ur Oxycodone Screen (NotDetected) Urine Methadone Screen (NotDetected) Ur Propoxyphene Screen (NotDetected) Acetaminophen ug/mL Ur Barbiturates Screen (NotDetected) U Tricyclic Antidepress (NotDetected) Ur Phencyclidine Scrn (NotDetected) Ur Amphetamines Screen (NotDetected) U Methamphetamines Scrn (NotDetected) U Benzodiazepines Scrn (NotDetected) Urine Cocaine Screen (NotDetected) U Marijuana (THC) Screen (NotDetected) Serum Alcohol mg/dL Critical Care Time Critical Care Time: Yes Total Critical Care Time: 45 Critical Care Time: Critical Care Time Critical care time was exclusive of separately billable procedures and treating other patients and teaching time. Critical care was necessary to treat or prevent imminent or life-threatening deterioration. Given the critical condition in which the patient arrived, the patient was immediately assessed by myself and the nurse, and cardiac monitoring initiated due to the potential for rapid decompensation of the patient's clinical condition. During the course of the patients stay, I spent a considerable amount of time at the bedside performing serial re-evaluations of the patient's h emodynamic and clinical status because of the recognized potential threat to life or limb in this condition. I then had a chance to review not only all of the available current laboratory and radiographic studies obtained today, but I also reviewed old records available to me at the time. Additionally, any ancillary information available including deck cadet records were reviewed. Sequential vital signs were obtained. Disposition Clinical Impression: Intentional overdose of drug in tablet form, Acute respiratory failure, Alcohol intoxication Disposition: ADMITTED IP TO THIS [facility] Decision to Admit Reason: Admit from EC Decision Date: 01/24/19 Decision Time: 22:20
[2019-01-24 18:51] LABS: ALT 36 U/L (9-52); AST 28 U/L (14-36); Acetaminophen <10.0 ug/mL; African American GFR (CKD) 81 (>60 ml/min/1.73 sqM); Albumin 4.4 g/dL (3.5-5.0); Alkaline Phosphatase 70 U/L (38-126); Anion Gap 12 mmol/L; Blood Urea Nitrogen 10 mg/dL (7-17); Calcium 9.7 mg/dL (8.4-10.2); Carbon Dioxide 23 mmol/L (22-30); Chloride 106 mmol/L (98-107); Glucose 148 mg/dL (74-99); Non-African American GFR(CKD) 70 (>60 ml/min/1.73 sqM); Potassium 4.1 mmol/L (3.5-5.1); Salicylate <1.0 mg/dL; Sodium 141 mmol/L (137-145); Total Bilirubin 0.3 mg/dL (0.2-1.3)
[2019-01-24 19:04] LABS: Ammonia <9 umol/L (<30)
[2019-01-24 19:08] LABS: Alcohol 110 mg/dL; Magnesium 2.1 mg/dL (1.6-2.3)
[2019-01-24 19:12] LABS: HCG,Qualitative Serum Not Detected
[2019-01-24] MEDS ORDERED: ETOMIDATE 2 MG/ML 10 ML VIAL IVP STA (19:14)
[2019-01-24] MEDS ORDERED: SUCCINYLCHOLINE CHLORIDE VIAL 200 MG/10 ML VIAL IV STA (19:14)
--- NOTE | 2019-01-24 19:21 | XR ---
EXAMINATION TYPE: XR chest 1V portable DATE OF EXAM: 01/24/2019 Comparison: 04/15/2018 Clinical History: 48-year-old female with pain Findings: Heart normal size. Aorta and pulmonary vasculature within normal limits. Similar stable mild diffuse interstitial prominence, greatest within the right upper lobe. No consolidation or pleural effusion o therwise seen. ACDF hardware. Impression: Chronic changes without acute cardiopulmonary process.
[2019-01-24 19:25] LABS: Lactic Acid, Venous 2.4 mmol/L (0.7-2.0)
[2019-01-24] MEDS: PROPOFOL 1,000 MG in EMPTY BAG 1 BAG IV ONE (19:41)
--- NOTE | 2019-01-24 20:00 | XR ---
EXAMINATION TYPE: XR chest 1V portable DATE OF EXAM: 01/24/2019 Comparison: Earlier today Clinical History: 48-year-old female with pain, tube placement Findings: ET tube is satisfactory. NG tube is short. The sidehole is located above the GE junction. Heart normal size. Aorta and pulmonary vasculature within normal limits. No consolidation or pleural effusion. Impression: 1. Satisfactory ET tube. 2. The NG tube is short. Advance 7 cm so that the side hole enters the stomach.
[2019-01-24 20:04] LABS: Appearance,Urine Clear (Clear); Bilirubin,Urine Negative (Negative); Blood,Urine Negative (Negative); Color,Urine Yellow; Glucose,Urine (UA) Negative (Negative); Ketones,Urine Negative (Negative); Leukocyte Esterase,Urine Negative (Negative); Nitrite,Urine Negative (Negative); Protein,Urine Negative (Negative); Specific Gravity,Urine 1.007 (1.001-1.035); Urobilinogen,Urine <2.0 mg/dL (<2.0)
[2019-01-24 20:12] LABS: Amphetamine Screen,Urine Not Detected (NotDetected); Barbiturate Screen,Urine Not Detected (NotDetected); Benzodiazepines Screen,Urine Detected (NotDetected); Cocaine Screen,Urine Not Detected (NotDetected); Methadone Screen, Urine Not Detected (NotDetected); Opiate Screen,Urine Not Detected (NotDetected); Oxycodone Screen, Urine Not Detected (NotDetected); Phencyclidine Screen,Urine Not Detected (NotDetected); Tricyclic Antidepressant,Urine Not Detected (NotDetected); Urn Cannabinoid Scrn Detected (NotDetected)
[2019-01-24 21:07] LABS: Allen Test Performed? Yes
[2019-01-24 21:08] LABS: ABG Base Excess -2.4 mmol/L; ABG HCO3 24 mmol/L (21-25); ABG Oxygen Saturation 99.4 % (94-97); ABG PCO2 45 mmHg (35-45); ABG PH 7.33 (7.35-7.45); ABG PO2 230 mmHg (83-108)
[2019-01-24] MEDS: LORazepam 2 MG/ML INJ IV STA ×2 (21:25→21:30)
[2019-01-24] MEDS: SODIUM CHLORIDE 0.9% 1,000 ML IV SCH (21:45)
--- NOTE | 2019-01-24 21:46 | CT ---
EXAMINATION TYPE: CT brain wo con DATE OF EXAM: 01/24/2019 COMPARISON: 04/15/2018 HISTORY: 48 year-old female altered mental status, confusion, alleged overdose TECHNIQUE: Examination was done in axial plane without intravenous contrast. Coronal and sagittal r econstructions performed. CT DLP: 1180.4 mGycm Automated exposure control for dose reduction was used. FINDINGS: There is no evidence of acute intracranial hemorrhage, acute ischemic changes, mass, mass-effect, or extra-axial fluid collection. There is no effacement of cerebral sulci or basal subarachnoid cister ns. There is no hydrocephalus. There is no midline shift. Green-white matter distinction is preserv ed. Moderate mucosal thickening ethmoid air cells and left maxillary sinus. Mastoid air cells well pneuma tized. Orbits and globes are intact. IMPRESSION: No acute intracranial abnormality seen. Mild chronic ethmoid and left maxillary sinus disease.
[2019-01-24] MEDS ORDERED: NALOXONE 0.4 MG/ML 1 ML VIAL IV PRN (22:21)
[2019-01-24] MEDS ORDERED: ACETAMINOPHEN TAB 325 MG TAB PO PRN (22:21)
[2019-01-24] MEDS ORDERED: IPRATROPIUM-ALBUTEROL 3 ML NEB INHALATION PRN (22:23)
[2019-01-25] MEDS: PROPOFOL 1,000 MG in EMPTY BAG 1 BAG IV ONE (02:34)
[2019-01-25] MEDS ORDERED: LEVOTHYROXINE 50 MCG TAB PO SCH (06:30)
[2019-01-25 06:33] LABS: Basophils % (A) 0 %; Eosinophils # (A) 0.1 k/uL (0-0.7); Eosinophils % (A) 2 %; HCT 37.6 % (34.0-46.0); HGB 11.8 gm/dL (11.4-16.0); Lymphocytes # (A) 2.2 k/uL (1.0-4.8); Lymphocytes % (A) 36 %; MCH 29.2 pg (25.0-35.0); MCHC 31.3 g/dL (31.0-37.0); MCV 93.3 fL (80.0-100.0); Mean Platelet Volume 7.7; Monocytes # (A) 0.7 k/uL (0-1.0); Monocytes % (A) 12 %; Neutrophils # (A) 2.9 k/uL (1.3-7.7); Neutrophils % (A) 48 %; Platelet Count 166 k/uL (150-450); RBC 4.03 m/uL (3.80-5.40); RDW 14.4 % (11.5-15.5); WBC 6.1 k/uL (3.8-10.6)
[2019-01-25 06:46] LABS: African American GFR (CKD) >90 (>60 ml/min/1.73 sqM); Anion Gap 3 mmol/L; Blood Urea Nitrogen 6 mg/dL (7-17); Calcium 8.5 mg/dL (8.4-10.2); Carbon Dioxide 24 mmol/L (22-30); Chloride 114 mmol/L (98-107); Glucose 82 mg/dL (74-99); Non-African American GFR(CKD) >90 (>60 ml/min/1.73 sqM); Sodium 141 mmol/L (137-145)
[2019-01-25 08:49] LABS: Glucose,Whole Blood 84 mg/dL (75-99)
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
[2019-01-25] MEDS ORDERED: PROPOFOL 1,000 MG in EMPTY BAG 1 BAG IV SCH (09:45)
[2019-01-25] MEDS: SODIUM CHLORIDE 0.9% 1,000 ML IV SCH ×2 (09:57→16:58)
[2019-01-25] MEDS: PANTOPRAZOLE 40 MG/10 ML VIAL IV SCH (10:34)
[2019-01-25] MEDS: LEVOTHYROXINE IVP 100 MCG/5 ML VIAL IV SCH (10:34)
[2019-01-25] MEDS: IPRATROPIUM-ALBUTEROL 3 ML NEB INHALATION SCH ×3 (10:53→18:54)
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
[2019-01-25] MEDS: HEPARIN SODIUM,PORCINE 5,000 UNIT/ML 1 ML VIAL SQ SCH ×2 (16:56→23:38)
--- NOTE | 2019-01-25 18:13 | HP ---
HISTORY AND PHYSICAL CHIEF COMPLAINT: Overdose, coma and suicide attempt. HISTORY OF PRESENT ILLNESS: This is the first known admission of this 48-year-old white female who came as an overdosed of gabapentin, trazodone, Thorazine, and alcohol. In the emergency room, before she lapsed into a coma, she indicated that she had done this intentionally. REVIEW OF SYSTEMS: Unobtainable. Past medical history, family history and personal and social histories are not obtainable from the patient, but she has a history of bipolar depression, PTSD. No other history is known. PHYSICAL EXAM: Blood pressure is 135/85 with a pulse of 64 and she is on a ventilator but triggering it at a rate of around 15. In general, she appeared to be slender. Skin color was normal. Head, ears, eyes, nose, mouth, and throat were normal. Pupils equal and round. She was intubated. Chest was clear. Cardiac exam demonstrated sinus rhythm and there were no murmurs. The. Abdomen was soft and there were no masses. Extremities were normal. She is admitted to the hospital diagnosis of: 1. Drug ingestion and overdose. 2. Suicide attempt. 3. History of bipolar depression. 4. History of posttraumatic stress disorder. PLAN: Ventilator support and psych consult once she awakens. MMODL / IJN: [id number] /
--- NOTE | 2019-01-25 18:18 | PN ---
PROGRESS NOTE DATE OF SERVICE: 01/25/2019 CHIEF COMPLAINT: Overdose. HISTORY OF PRESENT ILLNESS: This lady remains comatose and ventilator dependent. She is starting to respond. PHYSICAL EXAM: Vital signs are normal. Chest is clear and cardiac exam is normal. IMPRESSION: 1. Drug ingestion and overdose. 2. Posttraumatic stress disorder. 3. Bipolar depression. PLAN: Continue supportive care in ICU until she is awake. MMODL / IJN: [id number] /
[2019-01-25] MEDS ORDERED: CHLORHEXIDINE GLUCONATE 15 ML CUP MUCOUS MEM SCH (21:00)
[2019-01-26] MEDS: SODIUM CHLORIDE 0.9% 1,000 ML IV SCH (00:55)
[2019-01-26 05:06] LABS: Basophils % (A) 0 %; Eosinophils # (A) 0.1 k/uL (0-0.7); Eosinophils % (A) 2 %; HCT 32.1 % (34.0-46.0); HGB 10.4 gm/dL (11.4-16.0); Lymphocytes # (A) 1.6 k/uL (1.0-4.8); Lymphocytes % (A) 34 %; MCH 30.1 pg (25.0-35.0); MCHC 32.4 g/dL (31.0-37.0); Mean Platelet Volume 8.6; Monocytes # (A) 0.3 k/uL (0-1.0); Monocytes % (A) 7 %; Neutrophils # (A) 2.6 k/uL (1.3-7.7); Neutrophils % (A) 55 %; Platelet Count 154 k/uL (150-450); RBC 3.45 m/uL (3.80-5.40); RDW 15.2 % (11.5-15.5); WBC 4.6 k/uL (3.8-10.6)
[2019-01-26 05:13] LABS: African American GFR (CKD) >90 (>60 ml/min/1.73 sqM); Anion Gap 4 mmol/L; Blood Urea Nitrogen 6 mg/dL (7-17); Calcium 8.5 mg/dL (8.4-10.2); Carbon Dioxide 27 mmol/L (22-30); Chloride 107 mmol/L (98-107); Glucose 91 mg/dL (74-99); Non-African American GFR(CKD) >90 (>60 ml/min/1.73 sqM); Potassium 3.7 mmol/L (3.5-5.1); Sodium 138 mmol/L (137-145)
[2019-01-26] MEDS: IPRATROPIUM-ALBUTEROL 3 ML NEB INHALATION SCH ×4 (07:25→20:13)
[2019-01-26] MEDS: LEVOTHYROXINE IVP 100 MCG/5 ML VIAL IV SCH (08:36)
[2019-01-26] MEDS: HEPARIN SODIUM,PORCINE 5,000 UNIT/ML 1 ML VIAL SQ SCH ×2 (08:38→18:27)
[2019-01-26] MEDS: PANTOPRAZOLE 40 MG/10 ML VIAL IV SCH (08:38)
[2019-01-26 12:00] LABS: Glucose,Whole Blood 130 mg/dL (75-99)
--- NOTE | 2019-01-26 13:02 | P.PN ---
Subjective Progress Note Date: 01/26/19 Principal diagnosis: Multiple drugs overdose Is a 48-year-old female patient with previous history of chronic anxiety, chronic depression, schizophrenia, bipolar disorder, PTSD, and previous history of suicide attempt. The patient also has history of COPD, hyperlipidemia, hyper tension, seizure disorder, chronic back pain, hypothyroidism, brain lesion yet no official diagnosis of MS, spondylosis, gastroparesis, psoriasis and previous history of MRSA infection. The patient came into the hospital after an intentional overdose during which the patient swallowed a total of 46 tablets of gabapentin, 10 tablets of trazodone, unknown amount of Thorazine and his urine drug screen was also positive for marijuana and she had also was drinking alcohol. In the ED, the patient had a low [place] Coma Scale. CAT scan of the brain was negative. She was unable to protect her airway and the emergency physician opted to intubate the patient. Currently she is intubated on a mecha nical ventilator. She is also on propofol running at 60 mics per KG per minute. Earlier this morning, she was still thrashing and quite restless while being on a lower dose of propofol and the dose was titrated for comfort. She has 2 point restraints. No seizure activity has been noted. No hypotension. No hemodynamic instability. The patient is on a normal saline running at 100 mL an hour. She has an adequate urine output. Lactic acid level was at 2.4 dropped down to 1.8. Rest of the blood work and electrodes are all within normal limits. CAT scan of the brain was negative. Chest x-ray was within normal limits. ET tube was in a good location and NG tube was high in the esophagus and was pushed in. Otherwise, the patient is an assist-control mode with a tidal volume of 400, rate of 14 with a PEEP of 5 and FiO2 of 40%. Reevaluated today on 01/26/2019, patient is extubated, she is on room air, asymptomatic, denies any shortness of breath no cough no wheezing, no chest pain . She is hemodynamically stable. And she is being followed by psychiatry. However the patient is declining admission to our psychiatric unit if needed but she would be willing to go to any other psychiatric unit somewhere else if recommended. This decision will be left up to the psychiatric staff on the case to decide. At this point from the pulmonary perspective, patient is doing well, she has no active complaints, he is hemodynamically stable. Labs were reviewed she has a relatively normal CBC and relatively normal basic metabolic profile and normal renal profile. Objective - Vital Signs Vital signs: Vital Signs Temp 97.4 F L 01/26/19 12:00 Pulse 87 01/26/19 12:00 Resp 15 01/26/19 12:00 BP 98/61 01/26/19 12:00 Pulse Ox 96 01/26/19 12:00 Intake & Output 01/25/19 01/26/19 01/26/19 18:59 06:59 18:59 Intake Total 1200 1840 600 Output Total 3170 775 550 Balance -1970 1065 50 Weight 61.2 kg Intake: IV 1100 600 Sodium Chloride 0.9% 1, 1100 600 000 ml @ 100 mls/hr IV . Q10H JENNIFFER Rx#:[id number] Intake, IV Titration 1200 Amount Sodium Chloride 0.9% 1, 1200 000 ml @ 100 mls/hr IV . Q10H JENNIFFER Rx#:[id number] Oral 740 Output: Urine 3170 775 550 Other: Voiding Method Indwelling Catheter Indwelling Catheter # Voids 1 - Exam Physical Exam: Revealed 48-year-old female in no distress. Head: Atraumatic normocephalic. HEENT:[Neck is supple.] [No neck masses.] [No thyromegaly.] [No JVD.] Chest: [Clear throughout, no crackles, no rhonchi, no wheezes.] Cardiac Exam: [Normal S1 and S2, no S3 gallop, no murmur.] Abdomen: [Soft, nontender, no megaly, no rebound, no guarding, normal bowel sounds.] Extremities: [No clubbing, no edema, no cyanosis.] Neurological Exam: [No focal neurologic deficit.] Psychiatric: Normal mood, affect and normal mental status examination. Skin: No rashes. Lymphatics: No lymphadenopathy. - Labs CBC & Chem 7: 01/26/19 03:51 01/26/19 03:51 Labs: Abnormal Lab Results - Last 24 Hours (Table) 01/26/19 01/26/19 01/26/19 Range/Units 03:51 03:51 11:48 RBC 3.45 L (3.80-5.40) m/uL Hgb 10.4 L (11.4-16.0) gm/dL Hct 32.1 L (34.0-46.0) % BUN 6 L (7-17) mg/dL POC Glucose (mg/dL) 130 H (75-99) mg/dL Assessment and Plan Assessment: 1. Intentional drug overdose with a combination of gabapentin, trazodone, Thorazine, and the reduction was positive for marijuana and the patient was drinking alcohol. 2 altered mentation secondary to above and the patient was intubated for respiratory protection/airway protection. Patient is now extubated, and in no distress. 3 acute hypoxic respiratory failure, resolved. It is mostly secondary to overdose of a combination of drugs. 4 chronic psychiatric history including chronic anxiety/depression/bipolar disorder/PTSD/schizophrenia and the patient has had previous history of suicide 5 hypothyroidism on thyroid hormone replacement 6 hyperlipidemia 7 COPD, presently inactive. 8 history of seizure disorder, no seizure activity while inpatient. 9 chronic pain involving chronic back pain and the patient was taken Flexeril and Neurontin on outpatient basis Recommendation: Patient will be cleared to transfer out of the ICU either to a regular medical floor with suicidal precautions, and keep a sitter at bedside, or to a different psychiatric unit if recommended by our psychiatry staff. Again will continue present supportive care measures, and continue suicidal precautions. Time with Patient: Less than 30
--- NOTE | 2019-01-26 14:11 | P.PN ---
Progress Note - Text Progress Note Date: 01/26/19 Interval History: Patient is a 48-year-old female is being seen in follow-up to a consultation performed yesterday. Patient is more awake today and states that she and her had an argument and that she took the overdose not to commit suicide but because her stated that he would give her an 11 set divorce, the [employer] of a bullet so she wanted to give it to him. Patient states that she really wasn't trying to commit suicide and denies that she is currently feeling suicidal. Patient states that she is not been a return to live with him and becomes quite agitated and angry when I ask her where she is going to live when she leaves the hospital and she states that her daughter is a restraining order against her she has no friends and no extended family. Patient states that she did not obtain the ambulatory EEG that had been ordered in the past because she has no way to get there. She states that she was seen once at [facility] and they told her to not come back until she saw her neurologist. She states that her primary care physician think she has the serotonin syndrome and has been decreasing her trazodone dose. Patient states that she's not willing to go back to the psychiatric unit in this hospital. She states that she won't go back there and she'll leave if she has to go back there. Mental Status: Appearance/Attitude: Patient is sitting in her bed in no acute distress, makes eye contact and is superficially cooperative Behavior: Patient does not display any psychomotor retardation or agitation Speech/Language: Patient's speech is spontaneous of normal volume and rhythm and she is coherent Thought Process: Patient is goal-directed no evidence of loose association or flight of ideas Thought Content: Patient denies any auditory or visual hallucinations and no delusions or paranoid ideation or elicited. Patient remains angry stating that this was not a suicide attempt but she was trying to give her the divorce he wanted when he told her he would give her an 11 set divorce. Patient states that she's gotten no one to live with and becomes quite angry and hostile when discussing this stating that that's what I told you the last time I saw you. Patient states her daughter is a restraining order against her and she is not going to return to live with her and has no friends or extended family. Patient has not complied with the ambulatory EEG that has been requested by neurology to diagnose what type of seizure disorder or if she has a seizure disorder. Patient states that her trazodone has been titrated by her primary care physician because the primary care physician think she has serotonin syndrome. Suicidal/Homicidal Ideation: Patient denies current suicidal ideation stating that she was only trying to give her the divorce he wanted and denies any current homicidal ideation Sensorium/Cognition: Patient is alert and oriented to person, place and time and her recent remote memory grossly intact Mood/Affect: Patient's mood is angry and sarcastic and her affect is appropriate to her mood Insight/Judgment: Patient's insight and judgment are limited Assessment: Patient was seen today and she is more alert, she continues to adamantly refuse to be transferred to the inpatient psychiatric unit in this hospital stating that they've never been helpful to her in the past. Patient was recently on the inpatient psychiatric unit where she refused to allow me to adjust any of her medications stating that she was ALLERGIC or had bad reactions to any of the antipsychotics or mood stabilizers and insisted on staying only on trazodone and Thorazine. Patient then refused to take medication or last several days on the inpatient unit and was discharged with a follow-up at [facility] as she refused to return to [facility]. Patient states that she took the overdose because her offered to give her an 11 set divorce, stating that he was referring to the [facility] bullet and so she was going to give him the divorce he wanted and took an overdose of her medications. Plan: Patient requires transfer to an inpatient psychiatric unit I spoke with the high school social studies teacher regarding her request to not be transferred to our inpatient psychiatric unit if possible. Patient has a history of poor compliance once she is discharged with psychiatric follow-up, would maintain the one-to-one sitter while she is in the hospital and once she is medically stable attempt to arrange transfer to another facility. I will sign off the case if there are any further questions or concerns please don't hesitate to contact me. I will not restart her trazodone or Thorazine at this time as the patient overdosed on those medications.
--- NOTE | 2019-01-26 14:23 | CDI ---
Documentation Clarification Form Date: 01/26/2019 2:06:46 PM From: Melissa Zelaya RN CCDS Admit Date: 01/24/2019 10:21:00 PM Patient Name: Parent, Ping Quesada Visit Number: [id number] Discharge Date: ATTENTION: The Clinical Documentation Specialists (CDI) and [facility] Coding Staff appreciate your assistance in clarifying documentation. Please respond to the clarification below the line at the bottom and electronically sign. The CDI & [facility] Coding staff will review the response and follow-up if needed. Please note: Queries are made part of the Legal Health Record. If you have any questions, please contact the author of this message via ITS. Dr. Chan Nunez Altered Mental Status was documented in your progress note dated 01/26/2019 History/Risk Factors: 48 year old female presents to the ED via EMS for intentional overdose. Medical History- seizure disorder, chronic pain, bipolar, depression Clinical Indicators: Per your progress note dtated 01/26/2019 Altered mentation secondary to above and the patient was intubated for respiratory protection / airway protection. Labs: Lactic acid 2.4; Toxicology Benzodiazepines detected ; Marijuana detected; Serum Alcohol 110; CT: Brain no acute abnormalities Treatment: 1Liter 0.9ns ivfl followed by 100cc/hr, Intubation In your professional opinion, please clarify the etiology of the Altered Mental Status, if known. Toxic Metabolic Encephalopathy (specify Type and Underlying Medical Illness) Other condition (please specify) Unable to determine (Last Revision: September 2017) MTDD
[2019-01-26 17:00] LABS: Glucose,Whole Blood 157 mg/dL (75-99)
--- NOTE | 2019-01-26 17:02 | PN ---
PROGRESS NOTE DATE OF SERVICE: 01/26/2019 CHIEF COMPLAINT: Overdose. HISTORY OF PRESENT ILLNESS: This lady is now fully awake and alert. She does admit that she was trying to commit suicide. PHYSICAL EXAMINATION: Chest is clear. Cardiac exam is normal. Abdomen is soft, nontender. IMPRESSION: 1. Intentional drug-ingestion overdose. 2. Major depression. 3. Suicidal personality. PLAN: Obtain psychiatric consult. MMODL / IJN: [id number] /
[2019-01-27] MEDS: SODIUM CHLORIDE 0.9% 1,000 ML IV SCH ×3 (00:38→09:56)
[2019-01-27] MEDS: HEPARIN SODIUM,PORCINE 5,000 UNIT/ML 1 ML VIAL SQ SCH ×3 (00:43→16:13)
[2019-01-27 04:52] LABS: Basophils % (A) 0 %; Eosinophils # (A) 0.1 k/uL (0-0.7); Eosinophils % (A) 2 %; HCT 32.5 % (34.0-46.0); HGB 10.3 gm/dL (11.4-16.0); Lymphocytes # (A) 1.7 k/uL (1.0-4.8); Lymphocytes % (A) 34 %; MCH 28.9 pg (25.0-35.0); MCHC 31.6 g/dL (31.0-37.0); MCV 91.4 fL (80.0-100.0); Mean Platelet Volume 7.7; Monocytes # (A) 0.3 k/uL (0-1.0); Monocytes % (A) 7 %; Neutrophils # (A) 2.7 k/uL (1.3-7.7); Neutrophils % (A) 55 %; Platelet Count 155 k/uL (150-450); RBC 3.56 m/uL (3.80-5.40); RDW 14.2 % (11.5-15.5)
[2019-01-27 05:10] LABS: African American GFR (CKD) >90 (>60 ml/min/1.73 sqM); Anion Gap 4 mmol/L; Blood Urea Nitrogen 7 mg/dL (7-17); Calcium 8.7 mg/dL (8.4-10.2); Carbon Dioxide 28 mmol/L (22-30); Chloride 107 mmol/L (98-107); Glucose 101 mg/dL (74-99); Non-African American GFR(CKD) >90 (>60 ml/min/1.73 sqM); Potassium 3.8 mmol/L (3.5-5.1); Sodium 139 mmol/L (137-145)
[2019-01-27] MEDS: LEVOTHYROXINE 50 MCG TAB PO SCH (07:04)
[2019-01-27] MEDS: IPRATROPIUM-ALBUTEROL 3 ML NEB INHALATION SCH ×4 (07:40→22:08)
[2019-01-27] MEDS: PANTOPRAZOLE 40 MG TABLET PO SCH (09:55)
--- NOTE | 2019-01-27 12:46 | P.PN ---
Subjective Progress Note Date: 01/27/19 Principal diagnosis: Multiple drugs overdose Is a 48-year-old female patient with previous history of chronic anxiety, chronic depression, schizophrenia, bipolar disorder, PTSD, and previous history of suicide attempt. The patient also has history of COPD, hyperlipidemia, hyper tension, seizure disorder, chronic back pain, hypothyroidism, brain lesion yet no official diagnosis of MS, spondylosis, gastroparesis, psoriasis and previous history of MRSA infection. The patient came into the hospital after an intentional overdose during which the patient swallowed a total of 46 tablets of gabapentin, 10 tablets of trazodone, unknown amount of Thorazine and his urine drug screen was also positive for marijuana and she had also was drinking alcohol. In the ED, the patient had a low [place] Coma Scale. CAT scan of the brain was negative. She was unable to protect her airway and the emergency physician opted to intubate the patient. Currently she is intubated on a mecha nical ventilator. She is also on propofol running at 60 mics per KG per minute. Earlier this morning, she was still thrashing and quite restless while being on a lower dose of propofol and the dose was titrated for comfort. She has 2 point restraints. No seizure activity has been noted. No hypotension. No hemodynamic instability. The patient is on a normal saline running at 100 mL an hour. She has an adequate urine output. Lactic acid level was at 2.4 dropped down to 1.8. Rest of the blood work and electrodes are all within normal limits. CAT scan of the brain was negative. Chest x-ray was within normal limits. ET tube was in a good location and NG tube was high in the esophagus and was pushed in. Otherwise, the patient is an assist-control mode with a tidal volume of 400, rate of 14 with a PEEP of 5 and FiO2 of 40%. Reevaluated today on 01/26/2019, patient is extubated, she is on room air, asymptomatic, denies any shortness of breath no cough no wheezing, no chest pain . She is hemodynamically stable. And she is being followed by psychiatry. However the patient is declining admission to our psychiatric unit if needed but she would be willing to go to any other psychiatric unit somewhere else if recommended. This decision will be left up to the psychiatric staff on the case to decide. At this point from the pulmonary perspective, patient is doing well, she has no active complaints, he is hemodynamically stable. Labs were reviewed she has a relatively normal CBC and relatively normal basic metabolic profile and normal renal profile. Patient was reevaluated today on 01/27/2019, patient is doing well, asymptomatic, no active pulmonary issues, no active medical issues, she was seen by psychiatry, and the plan is to transfer the patient to the psychiatric unit outside our facility since the patient refuses to be admitted to our psychiatric unit. Patient is cleared from the pulmonary perspective and medical perspective for transfer to any psychiatric unit at this point. Her labs are normal CBC is normal and her mental status seems to be back to baseline. Objective - Vital Signs Vital signs: Vital Signs Temp 98.4 F 01/27/19 08:00 Pulse 108 H 01/27/19 10:50 Resp 20 01/27/19 08:00 BP 135/84 01/27/19 08:00 Pulse Ox 95 01/27/19 04:00 Intake & Output 01/26/19 01/27/19 01/27/19 18:59 06:59 18:59 Intake Total 1400 900 300 Output Total 550 350 800 Balance 850 550 -500 Intake: IV 1100 900 300 Sodium Chloride 0.9% 1, 1100 900 300 000 ml @ 100 mls/hr IV . Q10H JENNIFFER Rx#:[id number] Oral 300 Output: Urine 550 350 800 Other: # Voids 1 1 # Bowel Movements 1 - Exam Physical Exam: Revealed 48-year-old female in no distress. Head: Atraumatic normocephalic. HEENT:[Neck is supple.] [No neck masses.] [No thyromegaly.] [No JVD.] Chest: [Clear throughout, no crackles, no rhonchi, no wheezes.] Cardiac Exam: [Normal S1 and S2, no S3 gallop, no murmur.] Abdomen: [Soft, nontender, no megaly, no rebound, no guarding, normal bowel sounds.] Extremities: [No clubbing, no edema, no cyanosis.] Neurological Exam: [No focal neurologic deficit.] Psychiatric: Normal mood, affect and normal mental status examination. Skin: No rashes. Lymphatics: No lymphadenopathy. - Labs CBC & Chem 7: 01/27/19 04:17 01/27/19 04:17 Labs: Abnormal Lab Results - Last 24 Hours (Table) 01/26/19 01/27/19 01/27/19 Range/Units 16:48 04:17 04:17 RBC 3.56 L (3.80-5.40) m/uL Hgb 10.3 L (11.4-16.0) gm/dL Hct 32.5 L (34.0-46.0) % Glucose 101 H (74-99) mg/dL POC Glucose (mg/dL) 157 H (75-99) mg/dL Assessment and Plan Assessment: 1. Intentional drug overdose with a combination of gabapentin, trazodone, Thorazine, and the reduction was positive for marijuana and the patient was drinking alcohol. 2 altered mental status on presentation secondary to toxic metabolic encephalopathy secondary to multiple drugs taken including trazodone Thorazine and gabapentin 3 acute hypoxic respiratory failure, resolved. It is mostly secondary to overdose of a combination of drugs. 4 chronic psychiatric history including chronic anxiety/depression/bipolar disorder/PTSD/schizophrenia and the patient has had previous history of suicide 5 hypothyroidism on thyroid hormone replacement 6 hyperlipidemia 7 COPD, presently inactive. 8 history of seizure disorder, no seizure activity while inpatient. 9 chronic pain involving chronic back pain and the patient was taken Flexeril and Neurontin on outpatient basis Recommendation: Patient is cleared for transfer to any psychiatric unit, we will sign off and see the patient on when necessary. Time with Patient: Less than 30
--- NOTE | 2019-01-27 22:29 | PN ---
PROGRESS NOTE DATE OF SERVICE: 01/27/2019 CHIEF COMPLAINT: Overdose. HISTORY OF PRESENT ILLNESS: This lady is fully awake and alert. She has been seen by Psychiatry, who is recommending inpatient treatment. Petition has been filled out and signed, and we await placement. PRETTY / MARY ANNE: [id number] /
--- NOTE | 2019-01-27 23:21 | DS ---
DISCHARGE SUMMARY CHIEF COMPLAINT: Overdose. HISTORY OF PRESENT ILLNESS AND PHYSICAL EXAM: Details of this lady's history and physical can be found in the initial workup. LABORATORY STUDIES: While she was in the hospital, she had laboratory studies, details of which can be found in the laboratory section of her chart. COURSE IN HOSPITAL: After admission, she was placed on bedrest, started on intravenous fluids and kept in intensive care unit until she became more awake and alert. She was seen by Psychiatry who recommended that she go into an inpatient treatment facility and this will be arranged. FINAL DIAGNOSES: 1. Drug ingestion overdose with coma. 2. Major depression with suicidal attempt. OPERATIONS: None. CONSULTATIONS: Psychiatry. She is improved. MMODL / IJN: [id number] /
[2019-01-28] MEDS: HEPARIN SODIUM,PORCINE 5,000 UNIT/ML 1 ML VIAL SQ SCH ×2 (00:46→08:34)
[2019-01-28 01:00] VITALS: TEMP 98.6
[2019-01-28] MEDS: LEVOTHYROXINE 50 MCG TAB PO SCH (05:40)
[2019-01-28] MEDS: IPRATROPIUM-ALBUTEROL 3 ML NEB INHALATION SCH ×3 (07:04→15:35)
[2019-01-28 07:17] VITALS: BP 126/80
[2019-01-28 07:47] VITALS: RESP 18
[2019-01-28] MEDS: PANTOPRAZOLE 40 MG TABLET PO SCH (08:34)
[2019-01-28] MEDS ORDERED: MELATONIN 5 MG TABLET PO PRN (11:16)
[2019-01-28] MEDS ORDERED: ALBUTEROL NEBULIZED 2.5 MG/3 ML INHALATION PRN (11:16)
[2019-01-28 11:18] VITALS: PULSE 82
[2019-01-28] MEDS ORDERED: FLUTICASONE 44 MCG INHALER INHALATION SCH (11:30)
[2019-01-28] MEDS ORDERED: LORATADINE 10 MG TAB PO SCH (11:30)
[2019-01-28] MEDS ORDERED: chlorproMAZINE 25 MG TAB PO SCH (11:30)
[2019-01-28] MEDS ORDERED: LEVOTHYROXINE 50 MCG TAB PO SCH (11:30)
[2019-01-28] MEDS: GABAPENTIN 300 MG CAP PO SCH ×2 (12:12→12:52)
--- NOTE | 2019-01-28 16:45 | PN ---
PROGRESS NOTE CHIEF COMPLAINT: Overdose. HISTORY OF PRESENT ILLNESS: This lady continues to wait for a psychiatric bed. In the meantime, we will go ahead and start her back on most of her medications. PHYSICAL EXAMINATION: Chest is clear. Cardiac exam is normal. Abdomen is soft, nontender. IMPRESSION: 1. Drug ingestion and overdose. 2. Major depression. PLAN: Resume her medications and wait for a psych bed to open up. MMODL / IJN: [id number] /
[2019-01-28] MEDS ORDERED: traZODone HCL 50 MG TAB PO SCH (21:00)
--- NOTE | 2019-01-30 01:03 | DS ---
DISCHARGE SUMMARY CHIEF COMPLAINT: Overdose. HISTORY OF PRESENT ILLNESS AND PHYSICAL EXAM: Details of this lady's history and physical can be found in the initial workup. LABORATORY STUDIES: While she was in the hospital, she had laboratory studies, details of which can be found in the laboratory section of her chart. COURSE IN HOSPITAL: After admission, she was placed on bedrest, started on intravenous fluids in the intensive care unit. After 24 hours, she became more awake, alert. She was seen by Psychiatry and felt to be suicidal. She was petitioned and bed was awaited and finally found on the and she was transferred. FINAL DIAGNOSES: 1. Drug ingestion overdose. 2. Major depression with suicidal. 3. Suicidal personality and attempt. OPERATIONS: None. CONSULTATIONS: Psychiatry He is improved. PRETTY / MARY ANNE: [id number] /
== END 2019-01-28 15:43 | DRG 917 ==
LOC: EC 18:07 → 2SICU 22:21 → 4SSUR 01-27 21:18
PROVIDERS: ADMIT Family Medicine; ATTEND Family Medicine
PROC: 5A1945Z Respiratory Ventilation, 24-96 Consecutive Hours (ICD-10-PCS; principal; 2019-01-24)
PROC: 0BH18EZ Insertion of Endotracheal Airway into Trachea, Via Natural or Artificial Opening Endoscopic (ICD-10-PCS; principal; 2019-01-24)
DX: T42.6X2A Poisoning by other antiepileptic and sedative-hypnotic drugs, intentional self-harm, initial encounter (principal); G92 Toxic encephalopathy; J96.01 Acute respiratory failure with hypoxia; T51.0X2A Toxic effect of ethanol, intentional self-harm, initial encounter; R40.2362 Coma scale, best motor response, obeys commands, at arrival to emergency department; R40.2142 Coma scale, eyes open, spontaneous, at arrival to emergency department; R40.2252 Coma scale, best verbal response, oriented, at arrival to emergency department; E03.9 Hypothyroidism, unspecified; E78.5 Hyperlipidemia, unspecified; F10.129 Alcohol abuse with intoxication, unspecified; Y90.5 Blood alcohol level of 100-119 mg/100 ml; F17.200 Nicotine dependence, unspecified, uncomplicated; F20.9 Schizophrenia, unspecified; F31.9 Bipolar disorder, unspecified; F41.0 Panic disorder [episodic paroxysmal anxiety]; F43.10 Post-traumatic stress disorder, unspecified; G40.909 Epilepsy, unspecified, not intractable, without status epilepticus; G89.29 Other chronic pain; I10 Essential (primary) hypertension; J44.9 Chronic obstructive pulmonary disease, unspecified; K21.9 Gastro-esophageal reflux disease without esophagitis; Z79.82 Long term (current) use of aspirin; Z79.890 Hormone replacement therapy; Z79.899 Other long term (current) drug therapy; Z82.0 Family history of epilepsy and other diseases of the nervous system; Z90.710 Acquired absence of both cervix and uterus; Z91.5 Personal history of self-harm; M54.9 Dorsalgia, unspecified; R40.2350 Coma scale, best motor response, localizes pain, unspecified time; R40.2130 Coma scale, eyes open, to sound, unspecified time; R40.2250 Coma scale, best verbal response, oriented, unspecified time; Z86.14 Personal history of Methicillin resistant Staphylococcus aureus infection; Z81.8 Family history of other mental and behavioral disorders; Z88.8 Allergy status to other drugs, medicaments and biological substances; Z91.030 Bee allergy status
CPT/HCPCS: 31500; 36415; 36600; 70450; 71045; 80048; 80053; 80306; 80320; 80329; 81003; 82140; 82805; 83520; 83605; 83690; 83735; 84703; 85025; 93005; 94640; 96361; 96374; 99291

== ENCOUNTER 2019-05-26 14:08 | Emergency (ER) | payer MEDICARE ==
[2019-05-26 14:25] VITALS: BP 143/67; PULSE 89; RESP 18; TEMP 98
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
[2019-05-26] MEDS ORDERED: DIPH,PERTUS(ACELL)TETVAC-LF 0.5 ML VIAL IM ONE (15:02)
--- NOTE | 2019-05-26 15:02 | XR ---
EXAMINATION TYPE: XR knee 4V LT DATE OF EXAM: 05/26/2019 CLINICAL HISTORY: pain TECHNIQUE: Three views of the left knee are obtained. COMPARISON: None. FINDINGS: There is no acute fracture/dislocation. The tri-compartment joint spaces appear within no rmal limits. The overlying soft tissue appears unremarkable. IMPRESSION: There is no acute fracture or dislocation ICD 10 NO FRACTURE, INITIAL EVALUATION
[2019-05-26] MEDS ORDERED: IBUPROFEN 600 MG STARTER PACK 4 TAB BTL PO STA (15:19)
[2019-05-26] MEDS ORDERED: IBUPROFEN 600 MG TAB PO STA (15:19)
== END 2019-05-26 16:52 | disposition home or self-care (01) ==
LOC: EC 14:08
DX: S83.92XA Sprain of unspecified site of left knee, initial encounter (principal); I25.2 Old myocardial infarction; J44.9 Chronic obstructive pulmonary disease, unspecified; I10 Essential (primary) hypertension; E78.5 Hyperlipidemia, unspecified; G40.909 Epilepsy, unspecified, not intractable, without status epilepticus; F41.9 Anxiety disorder, unspecified; F31.9 Bipolar disorder, unspecified; F17.200 Nicotine dependence, unspecified, uncomplicated; Z79.51 Long term (current) use of inhaled steroids; Z79.899 Other long term (current) drug therapy; Z79.82 Long term (current) use of aspirin; Z91.040 Latex allergy status; Z88.8 Allergy status to other drugs, medicaments and biological substances; Z91.030 Bee allergy status; Z91.048 Other nonmedicinal substance allergy status; Z76.0 Encounter for issue of repeat prescription; Z86.14 Personal history of Methicillin resistant Staphylococcus aureus infection; V89.2XXA Person injured in unspecified motor-vehicle accident, traffic, initial encounter; Y92.410 Unspecified street and highway as the place of occurrence of the external cause; Y93.89 Activity, other specified
CPT/HCPCS: 73564; 99284; L1830

== ENCOUNTER 2019-06-02 15:13 | Emergency (ER) | payer MEDICARE ==
[2019-06-02 15:24] VITALS: BP 120/79; PULSE 112; RESP 16; TEMP 97.9
[2019-06-02] MEDS ORDERED: ACET/COD 300 MG/30 MG STARTER PACK 6 TAB BTL PO STA (15:54)
--- NOTE | 2019-06-02 15:54 | ED ---
Lower Extremity Injury HPI - General Chief Complaint: Extremity Injury, Lower Stated Complaint: knee pain-revisit Time Seen by Provider: 06/02/19 15:28 Source: patient Mode of arrival: wheelchair Limitations: no limitations - History of Present Illness Initial Comments: 49-year-old female presenting for left anterior knee pain. Patient states she has had previous ACL repair of the right knee. She states that she fell approximately 2-3 days ago and was evaluated here in the emergency department were x-rays are negative was told she could possibly have a ligamentous tear given the area where patient had tenderness. Patient states she did feel pop and snap in the anterior knee. She states it felt similar to when she had ACL tear in the past. Patient states she made appointment with orthopedics as scheduled for Saturday. Patient states that she was not given anything for pain at the pain is persistent. She states it is in the anterior knee and increases with any range of motion. Patient denies posterior knee pain swelling Swelling or pain denies any known masses denies history of DVT or pulmonary embolism. She states she presented to the ER simply for pain management. - Related Data Home Medications Medication Instructions Recorded Confirmed Albuterol Nebulized [Ventolin 2.5 mg INHALATION RT-QID PRN 01/28/19 05/26/19 Nebulized] Aspirin 81 mg PO DAILY 01/28/19 05/26/19 Levothyroxine Sodium [Synthroid] 50 mcg PO DAILY 01/28/19 05/26/19 [place]-3 Fatty Acids/Fish Oil [Fish 1 cap PO BID 01/28/19 05/26/19 Oil 1,000 mg Softgel] traZODone HCL 150 mg PO HS 01/28/19 05/26/19 Atorvastatin Calcium [Lipitor] 20 mg PO HS 05/26/19 05/26/19 Biotin 5 mg PO DAILY 05/26/19 05/26/19 Fluticasone Nasal [place] [Flonase 2 spray EA NOSTRIL BID 05/26/19 05/26/19 Nasal [place]] Fluticasone/Salmeterol [Advair 1 puff INHALATION RT-BID 05/26/19 05/26/19 500-50 Diskus] Melatonin 10 mg PO HS 05/26/19 05/26/19 Multivitamins, Thera [Multivitamin 1 tab PO DAILY 05/26/19 05/26/19 (formulary)] OXcarbazepine [Trileptal] 150 mg PO BID 05/26/19 05/26/19 Tiotropium 18 Mcg/Puff [Spiriva] 1 cap INHALATION RT-DAILY 05/26/19 05/26/19 Vortioxetine Hydrobromide 10 mg PO DAILY 05/26/19 05/26/19 [Trintellix] Previous Rx's Medication Instructions Recorded Gabapentin [Neurontin] 300 mg PO TID 10 Days #30 cap 05/26/19 OXcarbazepine [Trileptal] 150 mg PO BID 10 Days #20 tablet 05/26/19 Vortioxetine Hydrobromide 10 mg PO Q24HR 10 Days #10 tablet 05/26/19 [Trintellix] traZODone HCL 150 mg PO Q24HR 10 Days #10 tablet 05/26/19 Allergies Allergy/AdvReac Type Severity Reaction Status Date / Time adhesive Allergy Severe Rash/Hives Verified 06/02/19 15:24 Corticosteroids Allergy Severe Hallucinati Verified 06/02/19 15:24 (Glucocorticoids) ons fluoxetine HCl [From Prozac] Allergy Severe Hallucinati Verified 06/02/19 15:24 ons ketorolac [From Toradol] Allergy Severe Rash/Hives, Verified 06/02/19 15:24 Itching latex Allergy Severe Rash/Hives Verified 06/02/19 15:24 olanzapine [From Zyprexa] Allergy Severe Hallucinati Verified 06/02/19 15:24 ons prednisone Allergy Severe Hallucinati Verified 06/02/19 15:24 ons venlafaxine Allergy Severe Hallucinati Verified 06/02/19 15:24 ons venom-honey bee Allergy Severe Anaphylaxis Verified 06/02/19 15:24 [bee venom (honey bee)] Review of Systems ROS Statement: Those systems with pertinent positive or pertinent negative responses have been documented in the HPI. ROS Other: All systems not noted in ROS Statement are negative. Past Medical History Past Medical History: Chest Pain / Angina, COPD, GERD/Reflux, Hyperlipidemia, Hypertension, Musculoskeletal Disorder, Neurologic Disorder, Seizure Disorder, Skin Disorder, Thyroid Disorder Additional Past Medical History / Comment(s): Chronic back pain, , brain lesions negative for ms always, constipation, hypothyroidism in the past and off medications, spondylosis, menopause, seizure gastroparesis normally blood pressure is 70/30. 12/17/18 the pt admits to having chronic spinal pain/disc problems/neck pain. Pt admits to psorasis. History of Any Multi-Drug Resistant Organisms: MRSA Date of last positivie culture/infection: 2011, MDRO Source:: urine Past Surgical History: Back Surgery, Section, Hysterectomy, Orthopedic Surgery, Tubal Ligation Additional Past Surgical History / Comment(s): knee, wrist, sarcodisis, vitamin d deficiency, neck surg, Past Psychological History: Anxiety, Bipolar, Panic Disorder, PTSD, Schizophrenia Smoking Status: Current every day smoker Past Alcohol Use History: Rare Past Drug Use History: Marijuana - Past Family History Father Family Medical History: No Reported History Additional Family Medical History / Comment(s): Patient states her father i n his 20s as he was murdered. Mother Additional Family Medical History / Comment(s): Mother is alive at age 63 and suffers from Alzheimer's dementia and other "multiple problems." Sister(s) Additional Family Medical History / Comment(s): Patient had 2 sisters. One sister shot and killed herself. Patient has 3 brothers with no major medical problems. General Exam - General Exam Comments Initial Comments: General: The patient is awake and alert, in no distress, and does not appear acutely ill. Eye: +3 mm pupils are equal, round and reactive to light, extra-ocular movements are intact. No nystagmus. There is normal conjunctiva bilaterally. No signs of icterus. Musculoskeletal: Normal ROM, no tenderness. Strength 5/5. Sensation intact. DP pulses equal bilaterally 2+. No calf pain, swelling no popliteal pain swelling. (-) Homans. Extensor mechanism appears intact Neurological: A&O x 3. CN II-XII intact grossly, There are no obvious motor or sensory deficits. Coordination appears grossly intact. Speech is normal. Skin: Skin is warm and dry and no rashes or lesions are noted. Psychiatric: Cooperative, appropriate mood & affect, normal judgment. Limitations: no limitations Course Vital Signs 06/02/19 15:22 Temperature 97.9 F Pulse Rate 112 H Respiratory 16 Rate Blood Pressure 120/79 O2 Sat by Pulse 99 Oximetry Medical Decision Making - Medical Decision Making 49-year-old female presenting for pain management. History of left knee injury within the last week. Patient denies new injury. Patient denies any leg swelling. No swelling on exam, or obvious imaging, imaging studies reviewed from previous visit, patient neurovascularly intact. Patient states she was not discharged with pain medications for management. Patient was prescribed Tylenol No. 3 starter pack. Return parameters discussed patient discharged appearing well, instruction to f/u with orthopedics. Discussed case with attending prior to discharge of patient. Disposition Clinical Impression: Left anterior knee pain, Hx of fall Disposition: HOME SELF-CARE Condition: Good Instructions (If sedation given, give patient instructions): R.I.C.E. Treatment (ED) Additional Instructions: Please use medication as discussed. Please follow-up with orthopedics scheduled. Please return to emergency room if the symptoms increase or worsen or for any other concerns-calf, knee swelling. Is patient prescribed a controlled substance at d/c from ED?: No Referrals: Sadaf Gan MD [Primary Care Provider] - 1-2 days Time of Disposition: 15:56
[2019-06-02] MEDS ORDERED: ONDANSETRON 4 MG ODT STARTER PACK 2 TAB BTL PO STA (16:13)
== END 2019-06-02 16:25 | disposition home or self-care (01) ==
LOC: EC 15:13
DX: M25.562 Pain in left knee (principal); J44.9 Chronic obstructive pulmonary disease, unspecified; I10 Essential (primary) hypertension; E78.5 Hyperlipidemia, unspecified; E03.9 Hypothyroidism, unspecified; G40.909 Epilepsy, unspecified, not intractable, without status epilepticus; F17.200 Nicotine dependence, unspecified, uncomplicated; Z79.82 Long term (current) use of aspirin; Z79.890 Hormone replacement therapy; Z79.51 Long term (current) use of inhaled steroids; Z79.899 Other long term (current) drug therapy; Z91.048 Other nonmedicinal substance allergy status; Z91.040 Latex allergy status; Z88.8 Allergy status to other drugs, medicaments and biological substances; Z88.5 Allergy status to narcotic agent; Z91.030 Bee allergy status; Z91.81 History of falling
CPT/HCPCS: 99283

== ENCOUNTER 2019-08-22 09:53 | Emergency (ER) | payer MEDICARE ==
[2019-08-22 10:01] VITALS: BP 110/63; PULSE 76; RESP 18; TEMP 98.2
[2019-08-22] MEDS ORDERED: HYDROcodone/APAP 5-325MG 1 EACH TAB PO STA (10:40)
--- NOTE | 2019-08-22 10:43 | ED ---
Lower Extremity Injury HPI - General Chief Complaint: Extremity Injury, Lower Stated Complaint: Hip pain Time Seen by Provider: 08/22/19 10:04 Source: patient Mode of arrival: ambulatory Limitations: no limitations - History of Present Illness Initial Comments: Patient is a 49-year-old female presenting to the emergency department with a chief complaint of right hip pain. Patient reports symptoms began about 3 weeks ago and there were exacerbated today after she tripped over her dog and fell on the right side of her body. Denies any head trauma or loss of consciousness. States the pain is now exacerbated in the right hip. States the pain is worse with hip abduction. Denies any bruising to the region. States pain is also exacerbated with ambulation alleviated at rest. Does report taking Tylenol and ibuprofen with minimal improvement. Does report applying ice compress home with minimal improve. Denies any numbness or tingling. Denies any back pain, groin pain or abdominal pain. Denies any skin discoloration to right lower external ear. - Related Data Home Medications Medication Instructions Recorded Confirmed Albuterol Nebulized [Ventolin 2.5 mg INHALATION RT-QID PRN 01/28/19 05/26/19 Nebulized] Aspirin 81 mg PO DAILY 01/28/19 05/26/19 Levothyroxine Sodium [Synthroid] 50 mcg PO DAILY 01/28/19 05/26/19 [place]-3 Fatty Acids/Fish Oil [Fish 1 cap PO BID 01/28/19 05/26/19 Oil 1,000 mg Softgel] traZODone HCL 150 mg PO HS 01/28/19 05/26/19 Atorvastatin Calcium [Lipitor] 20 mg PO HS 05/26/19 05/26/19 Biotin 5 mg PO DAILY 05/26/19 05/26/19 Fluticasone Nasal [place] [Flonase 2 spray EA NOSTRIL BID 05/26/19 05/26/19 Nasal [place]] Fluticasone/Salmeterol [Advair 1 puff INHALATION RT-BID 05/26/19 05/26/19 500-50 Diskus] Melatonin 10 mg PO HS 05/26/19 05/26/19 Multivitamins, Thera [Multivitamin 1 tab PO DAILY 05/26/19 05/26/19 (formulary)] OXcarbazepine [Trileptal] 150 mg PO BID 05/26/19 05/26/19 Tiotropium 18 Mcg/Puff [Spiriva] 1 cap INHALATION RT-DAILY 05/26/19 05/26/19 Vortioxetine Hydrobromide 10 mg PO DAILY 05/26/19 05/26/19 [Trintellix] Previous Rx's Medication Instructions Recorded Gabapentin [Neurontin] 300 mg PO TID 10 Days #30 cap 05/26/19 OXcarbazepine [Trileptal] 150 mg PO BID 10 Days #20 tablet 05/26/19 Vortioxetine Hydrobromide 10 mg PO Q24HR 10 Days #10 tablet 05/26/19 [Trintellix] traZODone HCL 150 mg PO Q24HR 10 Days #10 tablet 05/26/19 Allergies Allergy/AdvReac Type Severity Reaction Status Date / Time adhesive Allergy Severe Rash/Hives Verified 08/22/19 10:01 Corticosteroids Allergy Severe Hallucinati Verified 08/22/19 10:01 (Glucocorticoids) ons fluoxetine HCl [From Prozac] Allergy Severe Hallucinati Verified 08/22/19 10:01 ons ketorolac [From Toradol] Allergy Severe Rash/Hives, Verified 08/22/19 10:01 Itching latex Allergy Severe Rash/Hives Verified 08/22/19 10:01 olanzapine [From Zyprexa] Allergy Severe Hallucinati Verified 08/22/19 10:01 ons prednisone Allergy Severe Hallucinati Verified 08/22/19 10:01 ons venlafaxine Allergy Severe Hallucinati Verified 08/22/19 10:01 ons venom-honey bee Allergy Severe Anaphylaxis Verified 08/22/19 10:01 [bee venom (honey bee)] Review of Systems ROS Statement: Those systems with pertinent positive or pertinent negative responses have been documented in the HPI. ROS Other: All systems not noted in ROS Statement are negative. Past Medical History Past Medical History: Chest Pain / Angina, COPD, GERD/Reflux, Hyperlipidemia, Hypertension, Musculoskeletal Disorder, Neurologic Disorder, Seizure Disorder, Skin Disorder, Thyroid Disorder Additional Past Medical History / Comment(s): Chronic back pain, , brain lesions negative for ms always, constipation, hypothyroidism in the past and off medications, spondylosis, menopause, seizure gastroparesis normally blood pressure is 70/30. 12/17/18 the pt admits to having chronic spinal pain/disc problems/neck pain. Pt admits to psorasis. History of Any Multi-Drug Resistant Organisms: MRSA Date of last positivie culture/infection: 2011, MDRO Source:: urine Past Surgical History: Back Surgery, Section, Hysterectomy, Orthopedic Surgery, Tubal Ligation Additional Past Surgical History / Comment(s): knee, wrist, sarcodisis, vitamin d deficiency, neck surg, Past Psychological History: Anxiety, Bipolar, Panic Disorder, PTSD, Schizophrenia Smoking Status: Current every day smoker Past Alcohol Use History: Rare Past Drug Use History: Marijuana - Past Family History Father Family Medical History: No Reported History Additional Family Medical History / Comment(s): Patient states her father in his 20s as he was murdered. Mother Additional Family Medical History / Comment(s): Mother is alive at age 63 and suffers from Alzheimer's dementia and other "multiple problems." Sister(s) Additional Family Medical History / Comment(s): Patient had 2 sisters. One si ster shot and killed herself. Patient has 3 brothers with no major medical problems. General Exam Limitations: no limitations General appearance: alert, in no apparent distress Head exam: Present: atraumatic, normocephalic, normal inspection Eye exam: Present: normal appearance Pupils: Present: normal accommodation ENT exam: Present: normal exam Neck exam: Present: normal inspection, full ROM Respiratory exam: Present: normal lung sounds bilaterally Cardiovascular Exam: Present: regular rate, normal rhythm, normal heart sounds GI/Abdominal exam: Present: soft. Absent: distended, tenderness, guarding Extremities exam: Present: normal inspection (No signs of obvious trauma to the right hip. No skin discoloration, swelling or bruising.), tenderness (Tenderness over the lateral aspect her right hip.), normal capillary refill, other (+2 dorsalis pedis and posterior tibialis right lower external ear.). Absent: full ROM (Limited range of motion with right hip abduction.), pedal edema, joint swelling, calf tenderness Back exam: Present: normal inspection, full ROM. Absent: tenderness, paraspinal tenderness, vertebral tenderness Neurological exam: Present: alert, oriented X3 Psychiatric exam: Present: normal affect, normal mood Skin exam: Present: warm, dry, intact, normal color Course Vital Signs 08/22/19 09:58 Temperature 98.2 F Pulse Rate 76 Respiratory 18 Rate Blood Pressure 110/63 O2 Sat by Pulse 97 Oximetry Medical Decision Making - Medical Decision Making Patient is a 41-year-old female presenting to emergency Department with chief complaint of hip pain. The pain is present there for the past 3 weeks but it was exacerbated today after she tripped over her dog and fell. No loss of consciousness or head trauma. On exam she does have tenderness over the lateral aspect of the right hip. No vertebral or paravertebral tenderness. Limited range of motion with abduction of the right lower extremity. Patient was given Dick[place] for the pain. She reports improvement in symptoms. She is able to ambulate. X-ray was obtained showing no signs of acute fractures or dislocations. Patient was advised to follow-up with an logistics management specialist. Return parameters were thoroughly discussed the patient was understanding and agreeable. Patient eloped without signing papers. Case discussed with physician. Disposition Clinical Impression: Contusion of right hip, Right hip pain Disposition: HOME SELF-CARE Condition: Stable Instructions (If sedation given, give patient instructions): Hip Pain (ED) Additional Instructions: Take [id number] pain medication. Return to emergency department if symptoms worsen. Follow-up with an logistics management specialist. Is patient prescribed a controlled substance at d/c from ED?: No Referrals: Sadaf Gan MD [Primary Care Provider] - 1-2 days Rayo Moser MD [Medical Doctor] - 1-2 days Time of Disposition: 12:24
--- NOTE | 2019-08-22 12:05 | XR ---
EXAMINATION TYPE: XR Hip Complete RT , 2 VIEWS DATE OF EXAM ORDERED: 08/22/2019 HISTORY: hip pain, tripping over dog. COMPARISON: None. FINDINGS: No fracture, dislocation or other acute osseous lesion is seen. IMPRESSION: NO ACUTE OSSEOUS LESION.
[2019-08-22] MEDS ORDERED: ACETAMINOPHEN TAB 325 MG TAB PO STA (12:22)
== END 2019-08-22 12:25 | disposition home or self-care (01) ==
LOC: EC 09:53
DX: S70.01XA Contusion of right hip, initial encounter (principal); J44.9 Chronic obstructive pulmonary disease, unspecified; E78.5 Hyperlipidemia, unspecified; I10 Essential (primary) hypertension; G89.29 Other chronic pain; E03.9 Hypothyroidism, unspecified; G40.909 Epilepsy, unspecified, not intractable, without status epilepticus; F32.9 Major depressive disorder, single episode, unspecified; F41.9 Anxiety disorder, unspecified; F17.200 Nicotine dependence, unspecified, uncomplicated; Z88.6 Allergy status to analgesic agent; Z88.8 Allergy status to other drugs, medicaments and biological substances; Z91.030 Bee allergy status; Z91.040 Latex allergy status; Z91.048 Other nonmedicinal substance allergy status; Z79.51 Long term (current) use of inhaled steroids; Z79.82 Long term (current) use of aspirin; Z79.890 Hormone replacement therapy; Z79.899 Other long term (current) drug therapy; Z86.14 Personal history of Methicillin resistant Staphylococcus aureus infection; W01.0XXA Fall on same level from slipping, tripping and stumbling without subsequent striking against object, initial encounter; Y92.009 Unspecified place in unspecified non-institutional (private) residence as the place of occurrence of the external cause
CPT/HCPCS: 73502; 99283

== ENCOUNTER 2019-09-23 12:09 | Emergency (ER) | payer MEDICARE ==
[2019-09-23] MEDS ORDERED: SODIUM CHLORIDE 0.9% 500 ML 500 ML IV STA (12:51)
[2019-09-23] MEDS ORDERED: LORazepam 2 MG/ML INJ IV STA (12:54)
[2019-09-23 13:04] LABS: Basophils % (A) 0 %; Eosinophils # (A) 0.1 k/uL (0-0.7); Eosinophils % (A) 1 %; HCT 45.4 % (34.0-46.0); HGB 15.2 gm/dL (11.4-16.0); Lymphocytes # (A) 2.6 k/uL (1.0-4.8); Lymphocytes % (A) 41 %; MCH 29.5 pg (25.0-35.0); MCHC 33.6 g/dL (31.0-37.0); MCV 87.9 fL (80.0-100.0); Monocytes # (A) 0.4 k/uL (0-1.0); Monocytes % (A) 7 %; Neutrophils # (A) 3.1 k/uL (1.3-7.7); Neutrophils % (A) 49 %; Platelet Count 262 k/uL (150-450); RBC 5.17 m/uL (3.80-5.40); RDW 13.5 % (11.5-15.5); WBC 6.4 k/uL (3.8-10.6)
--- NOTE | 2019-09-23 13:10 | ED ---
General Adult HPI - General Chief complaint: Shortness of Breath Stated complaint: SOB, cough Time Seen by Provider: 09/23/19 12:15 Source: patient, family, RN notes reviewed, old records reviewed Mode of arrival: wheelchair - History of Present Illness Initial comments: This is a 49-year-old female who presents emergency Department complaining of a week history of runny nose and cough. Patient states she's a little short of breath and having sharp chest pain if she takes a deep breath. Patient states she's had no fever but occasionally had the chills. Patient states is also been couple days of diarrhea. Patient states she continues to smoke. Patient denies abdominal pain patient denies any nausea or vomiting. Patient denies headache patient denies numbness weakness. - Related Data Home Medications Medication Instructions Recorded Confirmed Albuterol Nebulized [Ventolin 2.5 mg INHALATION RT-TID PRN 01/28/19 09/23/19 Nebulized] Aspirin 81 mg PO DAILY 01/28/19 09/23/19 [place]-3 Fatty Acids/Fish Oil [Fish 1 cap PO BID 01/28/19 09/23/19 Oil 1,000 mg Softgel] traZODone HCL 150 mg PO HS 01/28/19 09/23/19 Atorvastatin Calcium [Lipitor] 20 mg PO HS 05/26/19 09/23/19 Biotin 5 mg PO DAILY 05/26/19 09/23/19 Fluticasone Nasal [place] [Flonase 1 spray EA NOSTRIL BID 05/26/19 09/23/19 Nasal [place]] Fluticasone/Salmeterol [Advair 1 puff INHALATION RT-BID 05/26/19 09/23/19 500-50 Diskus] Melatonin 10 mg PO HS 05/26/19 09/23/19 Multivitamins, Thera [Multivitamin 1 tab PO DAILY 05/26/19 09/23/19 (formulary)] OXcarbazepine [Trileptal] 150 mg PO BID 05/26/19 09/23/19 Tiotropium 18 Mcg/Puff [Spiriva] 1 cap INHALATION RT-DAILY 05/26/19 09/23/19 Vortioxetine Hydrobromide 10 mg PO DAILY 05/26/19 09/23/19 [Trintellix] DULoxetine HCL [Cymbalta] 20 mg PO DAILY 09/23/19 09/23/19 Diclofenac Sodium [Voltaren] 50 mg PO BID 09/23/19 09/23/19 Gabapentin 600 mg PO TID 09/23/19 09/23/19 Levothyroxine Sodium [Synthroid] 75 mcg PO DAILY 09/23/19 09/23/19 Allergies Allergy/AdvReac Type Severity Reaction Status Date / Time adhesive Allergy Severe Rash/Hives Verified 09/23/19 13:31 Corticosteroids Allergy Severe Hallucinati Verified 09/23/19 13:31 (Glucocorticoids) ons fluoxetine HCl [From Prozac] Allergy Severe Hallucinati Verified 09/23/19 13:31 ons ketorolac [From Toradol] Allergy Severe Rash/Hives, Verified 09/23/19 13:31 Itching latex Allergy Severe Rash/Hives Verified 09/23/19 13:31 olanzapine [From Zyprexa] Allergy Severe Hallucinati Verified 09/23/19 13:31 ons prednisone Allergy Severe Hallucinati Verified 09/23/19 13:31 ons venlafaxine Allergy Severe Hallucinati Verified 09/23/19 13:31 ons venom-honey bee Allergy Severe Anaphylaxis Verified 09/23/19 13:31 [bee venom (honey bee)] Review of Systems ROS Statement: Those systems with pertinent positive or pertinent negative responses have been documented in the HPI. ROS Other: All systems not noted in ROS Statement are negative. Past Medical History Past Medical History: Chest Pain / Angina, COPD, GERD/Reflux, Hyperlipidemia, Hypertension, Musculoskeletal Disorder, Neurologic Disorder, Seizure Disorder, Skin Disorder, Thyroid Disorder Additional Past Medical History / Comment(s): Chronic back pain, , brain lesions negative for ms always, constipation, hypothyroidism in the past and off medications, spondylosis, menopause, seizure gastroparesis normally blood pressure is 70/30. 12/17/18 the pt admits to having chronic spinal pain/disc problems/neck pain. Pt admits to psorasis. History of Any Multi-Drug Resistant Organisms: MRSA Date of last positivie culture/infection: 2011, MDRO Source:: urine Past Surgical History: Back Surgery, Section, Hysterectomy, Orthopedic Surgery, Tubal Ligation Additional Past Surgical History / Comment(s): knee, wrist, sarcodisis, vitamin d deficiency, neck surg, Past Psychological History: Anxiety, Bipolar, Panic Disorder, PTSD, Schizophrenia Smoking Status: Current every day smoker Past Alcohol Use History: Rare Past Drug Use History: Marijuana - Past Family History Father Family Medical History: No Reported History Additional Family Medical History / Comment(s): Patient states her father in his 20s as he was murdered. Mother Additional Family Medical History / Comment(s): Mother is alive at age 63 and suffers from Alzheimer's dementia and other "multiple problems." Sister(s) Additional Family Medical History / Comment(s): Patient had 2 sisters. One sister shot and killed herself. Patient has 3 brothers with no major medical problems. General Exam - General Exam Comments Initial Comments: GENERAL: Patient is well-developed and well-nourished. Patient is nontoxic and well-hydr ated and is in no acute distress. ENT: Neck is soft and supple. No significant lymphadenopathy is noted. Oropharynx is clear. Moist mucous membranes. Neck has full range of motion without eliciting any pain. EYES: The sclera were anicteric and conjunctiva were pink and moist. Extraocular mo vements were intact and pupils were equal round and reactive to light. Eyelids were unremarkable. PULMONARY: Unlabored respirations. Good breath sounds bilaterally. No audible rales rhonchi or wheezing was noted. CARDIOVASCULAR: There is a regular rate and rhythm without any murmurs gallops or rubs. ABDOMEN: Soft and nontender with normal bowel sounds. SKIN: Skin is clear with no lesions or rashes and otherwise unremarkable. NEUROLOGIC: Patient is alert and oriented x3. Cranial nerves II through XII are grossly intact. Motor and sensory are also intact. Normal speech, volume and content. Symmetrical smile. MUSCULOSKELETAL: Normal extremities with adequate strength and full range of motion. No lower extremity swelling or edema. No calf tenderness. LYMPHATICS: No significant lymphadenopathy is noted PSYCHIATRIC: Normal psychiatric evaluation. Course Vital Signs 09/23/19 09/23/19 12:11 12:22 Temperature 97.9 F Pulse Rate 119 H Respiratory 20 23 Rate Blood Pressure 139/77 O2 Sat by Pulse 100 Oximetry Medical Decision Making - Medical Decision Making EKG shows normal sinus rhythm at 89 bpm MI interval 250 QRS is 74 QT interval 358 QTC is 435 per patient's EKG shows no ST segment elevation or depression. Chest x-ray shows no acute abnormality. Patient got some Ativan in the emergency department completely had resolution of her symptoms. - Lab Data Result diagrams: 09/23/19 12:25 09/23/19 12:25 Lab Results 09/23/19 09/23/19 09/23/19 Range/Units 12:25 12:25 12:25 WBC 6.4 (3.8-10.6) k/uL RBC 5.17 (3.80-5.40) m/uL Hgb 15.2 (11.4-16.0) gm/dL Hct 45.4 (34.0-46.0) % MCV 87.9 (80.0-100.0) fL MCH 29.5 (25.0-35.0) pg MCHC 33.6 (31.0-37.0) g/dL RDW 13.5 (11.5-15.5) % Plt Count 262 (150-450) k/uL Neutrophils % 49 % Lymphocytes % 41 % Monocytes % 7 % Eosinophils % 1 % Basophils % 0 % Neutrophils # 3.1 (1.3-7.7) k/uL Lymphocytes # 2.6 (1.0-4.8) k/uL Monocytes # 0.4 (0-1.0) k/uL Eosinophils # 0.1 (0-0.7) k/uL Basophils # 0.0 (0-0.2) k/uL PT 10.1 (9.0-12.0) sec INR 1.0 (<1.2) APTT 25.8 (22.0-30.0) sec D-Dimer 0.18 (<0.60) mg/L FEU Sodium 139 (137-145) mmol/L Potassium 4.0 (3.5-5.1) mmol/L Chloride 103 (98-107) mmol/L Carbon Dioxide 27 (22-30) mmol/L Anion Gap 9 mmol/L BUN 11 (7-17) mg/dL Creatinine 0.98 (0.52-1.04) mg/dL Est GFR (CKD-EPI)AfAm 79 (>60 ml/min/1.73 sqM) Est GFR (CKD-EPI)NonAf 68 (>60 ml/min/1.73 sqM) Glucose 115 H (74-99) mg/dL Plasma Lactic Acid Enrique (0.7-2.0) mmol/L Calcium 10.6 H (8.4-10.2) mg/dL Magnesium 2.0 (1.6-2.3) mg/dL Total Bilirubin 0.5 (0.2-1.3) mg/dL AST 20 (14-36) U/L ALT 21 (4-34) U/L Alkaline Phosphatase 85 (38-126) U/L Troponin I (0.000-0.034) ng/mL Total Protein 8.0 (6.3-8.2) g/dL Albumin 4.8 (3.5-5.0) g/dL 09/23/19 09/23/19 Range/Units 12:25 12:25 WBC (3.8-10.6) k/uL RBC (3.80-5.40) m/uL Hgb (11.4-16.0) gm/dL Hct (34.0-46.0) % MCV (80.0-100.0) fL MCH (25.0-35.0) pg MCHC (31.0-37.0) g/dL RDW (11.5-15.5) % Plt Count (150-450) k/uL Neutrophils % % Lymphocytes % % Monocytes % % Eosinophils % % Basophils % % Neutrophils # (1.3-7.7) k/uL Lymphocytes # (1.0-4.8) k/uL Monocytes # (0-1.0) k/uL Eosinophils # (0-0.7) k/uL Basophils # (0-0.2) k/uL PT (9.0-12.0) sec INR (<1.2) APTT (22.0-30.0) sec D-Dimer (<0.60) mg/L FEU Sodium (137-145) mmol/L Potassium (3.5-5.1) mmol/L Chloride (98-107) mmol/L Carbon Dioxide (22-30) mmol/L Anion Gap mmol/L BUN (7-17) mg/dL Creatinine (0.52-1.04) mg/dL Est GFR (CKD-EPI)AfAm (>60 ml/min/1.73 sqM) Est GFR (CKD-EPI)NonAf (>60 ml/min/1.73 sqM) Glucose (74-99) mg/dL Plasma Lactic Acid Enrique 1.7 (0.7-2.0) mmol/L Calcium (8.4-10.2) mg/dL Magnesium (1.6-2.3) mg/dL Total Bilirubin (0.2-1.3) mg/dL AST (14-36) U/L ALT (4-34) U/L Alkaline Phosphatase (38-126) U/L Troponin I <0.012 (0.000-0.034) ng/mL Total Protein (6.3-8.2) g/dL Albumin (3.5-5.0) g/dL Disposition Clinical Impression: Anxiety, Upper respiratory infection Disposition: HOME SELF-CARE Instructions (If sedation given, give patient instructions): Upper Respiratory Infection (ED), Anxiety (ED) Is patient prescribed a controlled substance at d/c from ED?: No Referrals: Dmitriy Ch MD [Primary Care Provider] - 1-2 days Time of Disposition: 14:18
[2019-09-23 13:14] LABS: Albumin 4.8 g/dL (3.5-5.0); Calcium 10.6 mg/dL (8.4-10.2); Total Bilirubin 0.5 mg/dL (0.2-1.3)
[2019-09-23 13:19] LABS: D-Dimer 0.18 mg/L FEU (<0.60); Partial Thromboplastin Time 25.8 sec (22.0-30.0); Prothrombin Time 10.1 sec (9.0-12.0)
--- NOTE | 2019-09-23 13:25 | XR ---
EXAMINATION TYPE: XR chest 2V DATE OF EXAM: 09/23/2019 COMPARISON: 01/24/2019 HISTORY: Difficulty breathing, fever, and chills TECHNIQUE: Frontal and lateral views of the chest are obtained. FINDINGS: There is no focal air space opacity, pleural effusion, or pneumothorax seen. The cardiac silhouette size is within normal limits. The osseous structures are intact. Cervical fusion device is partially visualized. IMPRESSION: No acute cardiopulmonary process.
[2019-09-23 14:31] VITALS: BP 143/74; PULSE 74; RESP 18; TEMP 98.2
== END 2019-09-23 14:31 | disposition home or self-care (01) ==
LOC: EC 12:09
DX: J06.9 Acute upper respiratory infection, unspecified (principal); F41.9 Anxiety disorder, unspecified; I20.9 Angina pectoris, unspecified; J44.9 Chronic obstructive pulmonary disease, unspecified; E78.5 Hyperlipidemia, unspecified; I10 Essential (primary) hypertension; G40.909 Epilepsy, unspecified, not intractable, without status epilepticus; E03.9 Hypothyroidism, unspecified; G89.29 Other chronic pain; F31.9 Bipolar disorder, unspecified; F41.0 Panic disorder [episodic paroxysmal anxiety]; F17.200 Nicotine dependence, unspecified, uncomplicated; Z88.6 Allergy status to analgesic agent; Z88.8 Allergy status to other drugs, medicaments and biological substances; Z91.030 Bee allergy status; Z91.040 Latex allergy status; Z91.048 Other nonmedicinal substance allergy status; Z79.1 Long term (current) use of non-steroidal anti-inflammatories (NSAID); Z79.51 Long term (current) use of inhaled steroids; Z79.82 Long term (current) use of aspirin; Z79.890 Hormone replacement therapy; Z79.899 Other long term (current) drug therapy; Z78.0 Asymptomatic menopausal state; Z86.14 Personal history of Methicillin resistant Staphylococcus aureus infection
CPT/HCPCS: 99285; 96374; 36415; 93005; 85379; 80053; 83605; 83735; 84484; 85025; 85610; 85730; 71046; J2060

== ENCOUNTER 2020-11-10 13:06 | Emergency (ER) | payer MEDICARE, OTHER ==
[2020-11-10 13:19] VITALS: RESP 18; TEMP 98
[2020-11-10] MEDS ORDERED: SODIUM CHLORIDE 0.9% 500 ML 500 ML IV STA (14:07)
[2020-11-10] MEDS ORDERED: ONDANSETRON 4 MG/2 ML VIAL IVP STA (14:07)
[2020-11-10 14:58] LABS: Basophils # (A) 0.1 k/uL (0-0.2); Basophils % (A) 1 %; Eosinophils # (A) 0.1 k/uL (0-0.7); Eosinophils % (A) 2 %; HCT 37.8 % (34.0-46.0); HGB 12.9 gm/dL (11.4-16.0); Lymphocytes % (A) 39 %; MCH 29.2 pg (25.0-35.0); MCHC 34.1 g/dL (31.0-37.0); MCV 85.6 fL (80.0-100.0); Mean Platelet Volume 7.8; Monocytes # (A) 0.5 k/uL (0-1.0); Monocytes % (A) 9 %; Neutrophils # (A) 2.3 k/uL (1.3-7.7); Neutrophils % (A) 46 %; Platelet Count 293 k/uL (150-450); RBC 4.42 m/uL (3.80-5.40); RDW 13.9 % (11.5-15.5); WBC 5.1 k/uL (3.8-10.6)
[2020-11-10 15:08] LABS: INR 0.9 (<1.2); Partial Thromboplastin Time 24.9 sec (22.0-30.0)
[2020-11-10 15:09] LABS: ALT 23 U/L (4-34); AST 27 U/L (14-36); African American GFR (CKD) >90 (>60 ml/min/1.73 sqM); Albumin 4.1 g/dL (3.5-5.0); Alcohol <10 mg/dL; Alkaline Phosphatase 62 U/L (38-126); Anion Gap 5 mmol/L; Blood Urea Nitrogen 15 mg/dL (7-17); Calcium 9.4 mg/dL (8.4-10.2); Carbon Dioxide 27 mmol/L (22-30); Chloride 106 mmol/L (98-107); Glucose 86 mg/dL (74-99); Non-African American GFR(CKD) 90 (>60 ml/min/1.73 sqM); Sodium 138 mmol/L (137-145); Total Bilirubin 0.5 mg/dL (0.2-1.3); Total Protein 6.9 g/dL (6.3-8.2)
--- NOTE | 2020-11-10 15:11 | XR ---
EXAMINATION TYPE: XR chest 2V DATE OF EXAM: 11/10/2020 COMPARISON: 09/23/2019 HISTORY: Chest pain TECHNIQUE: Frontal and lateral views of the chest are obtained. FINDINGS: There is no focal air space opacity. No evidence for pneumothorax. No pleural effusion. The cardiac silhouette size is within normal limits. The osseous structures are grossly intact. IMPRESSION: 1. No acute cardiopulmonary process.
[2020-11-10 15:19] LABS: Potassium 3.8 mmol/L (3.5-5.1)
--- NOTE | 2020-11-10 15:22 | ED ---
General Adult HPI - General Chief complaint: Skin/Abscess/Foreign Body Stated complaint: Lethargy, rash,seizure Time Seen by Provider: 11/10/20 13:37 Source: patient, EMS Mode of arrival: EMS - History of Present Illness Initial comments: Patient is a 50-year-old female with multiple comorbidities, presenting to the emergency Department for a rash that appeared yesterday after she got a shower as well as "not feeling well today." Patient showed me a picture of a rash she got in her upper back after she got a shower. She states it was a little bit itchy. She states she put calamine lotion on it and went to bed. Patient states when she woke up this morning the rash seemed to be gone however she "does not feel well." She states she is very fatigued, some mild shortness of breath, some nausea. She denies any fevers or chills, no abdominal pain, no vomiting, she's had one episode of diarrhea. She denies any chest pains. She states she's been having "more seizures than normal." She does see a neurologist at [facility]. She is not currently on seizure medications as they're waiting a brain MRI. She denies any falls or trauma. She denies any dysuria. She has no further complaints at this time. Upon arrival to the ER, her vitals are stable. - Related Data Home Medications Medication Instructions Recorded Confirmed Albuterol Nebulized [Ventolin 2.5 mg INHALATION RT-TID PRN 01/28/19 09/23/19 Nebulized] Aspirin 81 mg PO DAILY 01/28/19 09/23/19 [place]-3 Fatty Acids/Fish Oil [Fish 1 cap PO BID 01/28/19 09/23/19 Oil 1,000 mg Softgel] traZODone HCL 150 mg PO HS 01/28/19 09/23/19 Atorvastatin Calcium [Lipitor] 20 mg PO HS 05/26/19 09/23/19 Biotin 5 mg PO DAILY 05/26/19 09/23/19 Fluticasone Nasal [place] [Flonase 1 spray EA NOSTRIL BID 05/26/19 09/23/19 Nasal [place]] Fluticasone/Salmeterol [Advair 1 puff INHALATION RT-BID 05/26/19 09/23/19 500-50 [place]us] Melatonin 10 mg PO HS 05/26/19 09/23/19 Multivitamins, Thera [Multivitamin 1 tab PO DAILY 05/26/19 09/23/19 (formulary)] OXcarbazepine [Trileptal] 150 mg PO BID 05/26/19 09/23/19 Tiotropium 18 Mcg/Puff [Spiriva] 1 cap INHALATION RT-DAILY 05/26/19 09/23/19 Vortioxetine Hydrobromide 10 mg PO DAILY 05/26/19 09/23/19 [Trintellix] DULoxetine HCL [Cymbalta] 20 mg PO DAILY 09/23/19 09/23/19 Diclofenac Sodium [Voltaren] 50 mg PO BID 09/23/19 09/23/19 Gabapentin 600 mg PO TID 09/23/19 09/23/19 Levothyroxine Sodium [Synthroid] 75 mcg PO DAILY 09/23/19 09/23/19 Previous Rx's Medication Instructions Recorded Cephalexin [Keflex] 500 mg PO BID 5 Days #10 cap 11/10/20 Allergies Allergy/AdvReac Type Severity Reaction Status Date / Time adhesive Allergy Severe Rash/Hives Verified 11/10/20 13:19 Corticosteroids Allergy Severe Hallucinati Verified 11/10/20 13:19 (Glucocorticoids) ons fluoxetine HCl [From Prozac] Allergy Severe Hallucinati Verified 11/10/20 13:19 ons ketorolac [From Toradol] Allergy Severe Rash/Hives, Verified 11/10/20 13:19 Itching latex Allergy Severe Rash/Hives Verified 11/10/20 13:19 olanzapine [From Zyprexa] Allergy Severe Hallucinati Verified 11/10/20 13:19 ons prednisone Allergy Severe Hallucinati Verified 11/10/20 13:19 ons venlafaxine Allergy Severe Hallucinati Verified 11/10/20 13:19 ons venom-honey bee Allergy Severe Anaphylaxis Verified 11/10/20 13:19 [bee venom (honey bee)] Review of Systems ROS Statement: Those systems with pertinent positive or pertinent negative responses have been documented in the HPI. ROS Other: All systems not noted in ROS Statement are negative. Past Medical History Past Medical History: Chest Pain / Angina, COPD, GERD/Reflux, Hyperlipidemia, Hypertension, Musculoskeletal Disorder, Neurologic Disorder, Seizure Disorder, Skin Disorder, Thyroid Disorder Additional Past Medical History / Comment(s): Chronic back pain, , brain lesions negative for ms always, constipation, hypothyroidism in the past and off medications, spondylosis, menopause, seizure gastroparesis normally blood pressure is 70/30. 12/17/18 the pt admits to having chronic spinal pain/disc problems/neck pain. Pt admits to psorasis. History of Any Multi-Drug Resistant Organisms: MRSA Date of last positivie culture/infection: 2011, MDRO Source:: urine Past Surgical History: Back Surgery, Section, Hysterectomy, Orthopedic Surgery, Tubal Ligation Additional Past Surgical History / Comment(s): knee, wrist, sarcodisis, vitamin d deficiency, neck surg, Past Psychological History: Anxiety, Bipolar, Panic Disorder, PTSD, Schizophrenia Past Alcohol Use History: Rare Past Drug Use History: Marijuana - Past Family History Father Family Medical History: No Reported History Additional Family Medical History / Comment(s): Patient states her father in his 20s as he was murdered. Mother Additional Family Medical History / Comment(s): Mother is alive at age 63 and suffers from Alzheimer's dementia and other "multiple problems." Sister(s) Additional Family Medical History / Comment(s): Patient had 2 sisters. One sister shot and killed herself. Patient has 3 brothers with no major medical problems. General Exam - General Exam Comments Initial Comments: GENERAL: Patient is well-developed and well-nourished. Patient is nontoxic and in no acu te distress. HEAD: Atraumatic, normocephalic. EYES: Pupils equal round and reactive to light, extraocular movements intact, sclera anicteric, conjunctiva are normal. Eyelids were unremarkable. ENT: TMs normal, nares patent, oropharynx clear without exudates. Moist mucous mem branes. NECK: Normal range of motion, supple without lymphadenopathy or JVD. LUNGS: Unlabored respirations. Breath sounds clear to auscultation bilaterally and equal. No wheezes rales or rhonchi. HEART: Regular rate and rhythm without murmurs, rubs or gallops. ABDOMEN: Soft, nontender, normoactive bowel sounds. No guarding, no rebound. No masses appreciated. : Deferred MUSCULOSKELETAL: Normal extremities with adequate strength and normal range of motion, no pitting or edema. No clubbing or cyanosis. NEUROLOGICAL: Patient is alert and oriented x 3. Motor and sensory are also intact. Cranial nerves II through XII grossly intact. Symmetrical smile. Normal speech, normal gait. PSYCH: Normal mood, normal affect. SKIN: Warm, Dry, normal turgor, no rashes or lesions noted. Course Vital Signs 11/10/20 11/10/20 11/10/20 13:14 13:16 13:30 Temperature 98.0 F Pulse Rate 83 Respiratory 18 Rate Blood Pressure 130/84 130/84 124/82 O2 Sat by Pulse 98 97 Oximetry 11/10/20 11/10/20 11/10/20 14:00 14:30 15:00 Temperature Pulse Rate 78 Respiratory 18 Rate Blood Pressure 117/58 134/84 136/78 O2 Sat by Pulse 97 97 98 Oximetry 11/10/20 16:00 Temperature Pulse Rate 80 Respiratory 18 Rate Blood Pressure 128/72 O2 Sat by Pulse 100 Oximetry EKG Findings - EKG Comments: EKG Findings:: Suspect arm lead reversal, unusual P axis, lateral infarct, age undetermined, no signs of acute ischemia. Similar to previous EKG on 09/23/2019. Ventricular rate 64, P on arrival 154, QTC 444. Medical Decision Making - Medical Decision Making Patient is a 50-year-old female, with multiple comorbidities, presenting for a rash that happened last night as well as not feeling well today. She came by EMS. Her vital signs are stable. Complaining of fatigue, nausea, some mild shortness of breath. No chest pains, no significant pain anywhere. Her exam is unremarkable, no unusual findings. EKG shows no acute process. Chest x-ray is normal. Labs are normal, urine shows positive nitrates. Covid is negative. Patient received some fluids, Zofran here in the ER. She has been resting comfortably. Patient will be given 1 g Rocephin here in the ER, we'll continue her on Keflex for the UTI. She can follow with her PCP. Patient is stable for discharge. Patient is in agreement with this plan of care. Return parameters were discussed with the patient and they verbalized understanding. Case discussed with Dr. Cruz. - Lab Data Result diagrams: 11/10/20 14:08 11/10/20 14:08 Lab Results 11/10/20 11/10/20 11/10/20 Range/Units 14:08 14:08 14:08 WBC 5.1 (3.8-10.6) k/uL RBC 4.42 (3.80-5.40) m/uL Hgb 12.9 (11.4-16.0) gm/dL Hct 37.8 (34.0-46.0) % MCV 85.6 (80.0-100.0) fL MCH 29.2 (25.0-35.0) pg MCHC 34.1 (31.0-37.0) g/dL RDW 13.9 (11.5-15.5) % Plt Count 293 (150-450) k/uL MPV 7.8 Neutrophils % 46 % Lymphocytes % 39 % Monocytes % 9 % Eosinophils % 2 % Basophils % 1 % Neutrophils # 2.3 (1.3-7.7) k/uL Lymphocytes # 2.0 (1.0-4.8) k/uL Monocytes # 0.5 (0-1.0) k/uL Eosinophils # 0.1 (0-0.7) k/uL Basophils # 0.1 (0-0.2) k/uL PT 10.0 (9.0-12.0) sec INR 0.9 (<1.2) APTT 24.9 (22.0-30.0) sec Sodium (137-145) mmol/L Potassium (3.5-5.1) mmol/L Chloride (98-107) mmol/L Carbon Dioxide (22-30) mmol/L Anion Gap mmol/L BUN (7-17) mg/dL Creatinine (0.52-1.04) mg/dL Est GFR (CKD-EPI)AfAm (>60 ml/min/1.73 sqM) Est GFR (CKD-EPI)NonAf (>60 ml/min/1.73 sqM) Glucose (74-99) mg/dL Plasma Lactic Acid Enrique (0.7-2.0) mmol/L Calcium (8.4-10.2) mg/dL Total Bilirubin (0.2-1.3) mg/dL AST (14-36) U/L ALT (4-34) U/L Alkaline Phosphatase (38-126) U/L Troponin I (0.000-0.034) ng/mL Total Protein (6.3-8.2) g/dL Albumin (3.5-5.0) g/dL Urine Color Yellow Urine Appearance Clear (Clear) Urine pH 5.5 (5.0-8.0) Ur Specific [place] 1.011 (1.001-1.035) Urine Protein Negative (Negative) Urine Glucose (UA) Negative (Negative) Urine Ketones Negative (Negative) Urine Blood Small H (Negative) Urine Nitrite Positive H (Negative) Urine Bilirubin Negative (Negative) Urine Urobilinogen <2.0 (<2.0) mg/dL Ur Leukocyte Esterase Negative (Negative) Urine RBC 2 (0-5) /hpf Urine WBC 2 (0-5) /hpf Ur Squamous Epith Cells 1 (0-4) /hpf Urine Bacteria Rare H (None) /hpf Urine Mucus Rare H (None) /hpf Serum Alcohol mg/dL Coronavirus (PCR) (Not Detectd) 11/10/20 11/10/20 11/10/20 Range/Units 14:08 14:08 14:08 WBC (3.8-10.6) k/uL RBC (3.80-5.40) m/uL Hgb (11.4-16.0) gm/dL Hct (34.0-46.0) % MCV (80.0-100.0) fL MCH (25.0-35.0) pg MCHC (31.0-37.0) g/dL RDW (11.5-15.5) % Plt Count (150-450) k/uL MPV Neutrophils % % Lymphocytes % % Monocytes % % Eosinophils % % Basophils % % Neutrophils # (1.3-7.7) k/uL Lymphocytes # (1.0-4.8) k/uL Monocytes # (0-1.0) k/uL Eosinophils # (0-0.7) k/uL Basophils # (0-0.2) k/uL PT (9.0-12.0) sec INR (<1.2) APTT (22.0-30.0) sec Sodium 138 (137-145) mmol/L Potassium 3.8 (3.5-5.1) mmol/L Chloride 106 (98-107) mmol/L Carbon Dioxide 27 (22-30) mmol/L Anion Gap 5 mmol/L BUN 15 (7-17) mg/dL Creatinine 0.78 (0.52-1.04) mg/dL Est GFR (CKD-EPI)AfAm >90 (>60 ml/min/1.73 sqM) Est GFR (CKD-EPI)NonAf 90 (>60 ml/min/1.73 sqM) Glucose 86 (74-99) mg/dL Plasma Lactic Acid [place] 1.2 (0.7-2.0) mmol/L Calcium 9.4 (8.4-10.2) mg/dL Total Bilirubin 0.5 (0.2-1.3) mg/dL AST 27 (14-36) U/L ALT 23 (4-34) U/L Alkaline Phosphatase 62 (38-126) U/L Troponin I <0.012 (0.000-0.034) ng/mL Total Protein 6.9 (6.3-8.2) g/dL Albumin 4.1 (3.5-5.0) g/dL Urine Color Urine Appearance (Clear) Urine pH (5.0-8.0) Ur Specific [place] (1.001-1.035) Urine Protein (Negative) Urine Glucose (UA) (Negative) Urine Ketones (Negative) Urine Blood (Negative) Urine Nitrite (Negative) Urine Bilirubin (Negative) Urine Urobilinogen (<2.0) mg/dL Ur Leukocyte Esterase (Negative) Urine RBC (0-5) /hpf Urine WBC (0-5) /hpf Ur Squamous Epith Cells (0-4) /hpf Urine Bacteria (None) /hpf Urine Mucus (None) /hpf Serum Alcohol <10 mg/dL Coronavirus (PCR) (Not Detectd) 11/10/20 Range/Units 14:08 WBC (3.8-10.6) k/uL RBC (3.80-5.40) m/uL Hgb (11.4-16.0) gm/dL Hct (34.0-46.0) % MCV (80.0-100.0) fL MCH (25.0-35.0) pg MCHC (31.0-37.0) g/dL RDW (11.5-15.5) % Plt Count (150-450) k/uL MPV Neutrophils % % Lymphocytes % % Monocytes % % Eosinophils % % Basophils % % Neutrophils # (1.3-7.7) k/uL Lymphocytes # (1.0-4.8) k/uL Monocytes # (0-1.0) k/uL Eosinophils # (0-0.7) k/uL Basophils # (0-0.2) k/uL PT (9.0-12.0) sec INR (<1.2) APTT (22.0-30.0) sec Sodium (137-145) mmol/L Potassium (3.5-5.1) mmol/L Chloride (98-107) mmol/L Carbon Dioxide (22-30) mmol/L Anion Gap mmol/L BUN (7-17) mg/dL Creatinine (0.52-1.04) mg/dL Est GFR (CKD-EPI)AfAm (>60 ml/min/1.73 sqM) Est GFR (CKD-EPI)NonAf (>60 ml/min/1.73 sqM) Glucose (74-99) mg/dL Plasma Lactic Acid [place] (0.7-2.0) mmol/L Calcium (8.4-10.2) mg/dL Total Bilirubin (0.2-1.3) mg/dL AST (14-36) U/L ALT (4-34) U/L Alkaline Phosphatase (38-126) U/L Troponin I (0.000-0.034) ng/mL Total Protein (6.3-8.2) g/dL Albumin (3.5-5.0) g/dL Urine Color Urine Appearance (Clear) Urine pH (5.0-8.0) Ur Specific [place] (1.001-1.035) Urine Protein (Negative) Urine Glucose (UA) (Negative) Urine Ketones (Negative) Urine Blood (Negative) Urine Nitrite (Negative) Urine Bilirubin (Negative) Urine Urobilinogen (<2.0) mg/dL Ur Leukocyte Esterase (Negative) Urine RBC (0-5) /hpf Urine WBC (0-5) /hpf Ur Squamous Epith Cells (0-4) /hpf Urine Bacteria (None) /hpf Urine Mucus (None) /hpf Serum Alcohol mg/dL Coronavirus (PCR) Not Detected (Not Detectd) Disposition Clinical Impression: UTI (urinary tract infection), Fatigue Disposition: HOME SELF-CARE Condition: Stable Instructions (If sedation given, give patient instructions): Urinary Tract Infection in Women (ED) Additional Instructions: Please return to the Emergency Department if symptoms worsen or any other concerns. Take antibiotic as prescribed. Increase your water intake. Follow-up with your PCP. Prescriptions: Cephalexin [Keflex] 500 mg PO BID 5 Days #10 cap Is patient prescribed a controlled substance at d/c from ED?: No Referrals: Ben Wheat MD [Primary Care Provider] - 1-2 days Time of Disposition: 16:21
[2020-11-10 15:53] LABS: Appearance,Urine Clear (Clear); Bacteria,Urine Rare /hpf; Bilirubin,Urine Negative (Negative); Blood,Urine Small (Negative); Color,Urine Yellow; Glucose,Urine (UA) Negative (Negative); Ketones,Urine Negative (Negative); Leukocyte Esterase,Urine Negative (Negative); Mucus,Urine Rare /hpf; Nitrite,Urine Positive (Negative); PH, Urine 5.5 (5.0-8.0); Protein,Urine Negative (Negative); RBC,Urine 2 /hpf (0-5); Specific Gravity,Urine 1.011 (1.001-1.035); Squamous Epithelial Cell,Urine 1 /hpf (0-4); Urobilinogen,Urine <2.0 mg/dL (<2.0); WBC,Urine 2 /hpf (0-5)
[2020-11-10 16:15] VITALS: BP 128/72; PULSE 80
[2020-11-10] MEDS ORDERED: cefTRIAXone IN SWFI 1,000 MG/10 ML SYRINGE IVP STA (16:17)
== END 2020-11-10 16:55 | disposition home or self-care (01) ==
LOC: EC 13:06 → SUPCPDRO 13:06 → EC 16:55
DX: N39.0 Urinary tract infection, site not specified (principal); R06.02 Shortness of breath; R11.0 Nausea; R21 Rash and other nonspecific skin eruption; B96.20 Unspecified Escherichia coli [E. coli] as the cause of diseases classified elsewhere; I10 Essential (primary) hypertension; K21.9 Gastro-esophageal reflux disease without esophagitis; G40.909 Epilepsy, unspecified, not intractable, without status epilepticus; J44.9 Chronic obstructive pulmonary disease, unspecified; E78.5 Hyperlipidemia, unspecified; E03.9 Hypothyroidism, unspecified; F41.9 Anxiety disorder, unspecified; F31.9 Bipolar disorder, unspecified; F12.90 Cannabis use, unspecified, uncomplicated; F20.9 Schizophrenia, unspecified; Z20.822 Contact with and (suspected) exposure to COVID-19; Z79.1 Long term (current) use of non-steroidal anti-inflammatories (NSAID); Z79.51 Long term (current) use of inhaled steroids; Z79.82 Long term (current) use of aspirin
CPT/HCPCS: 36415; 93005; 80053; 83605; 84484; 85025; 85610; 85730; 81001; 87086; 87077; 87186; 87635; 71046; 99285; 96374; 96375; 96361 ×2; G0480; J2405; J0696; 80320